=== PATIENT | female | born 1935 | race Caucasian/White ===

== ENCOUNTER 2018-03-21 16:56 | Emergency (ER) | payer OTHER ==
--- OUTSIDE RECORDS SUMMARY | 2018-03-21 16:59 | XMS REPORT ---
:1935 [facility] Organization [facility] Address [address] [place] [address] [address] [address] Care Team Providers Name Role Phone JONAH SCOTT Unavailable Unavailable Problems This patient has no known problems. Allergies, Adverse Reactions, Alerts This patient has no known allergies or adverse reactions. Medications This patient has no known medications. Results Test Description Test Time Test Comments Text Results Atomic Results Result Comments TROPONIN I 2017-01-04 09:28:00 Test Item Value Reference Range Comments TROPONIN I (BEAKER) (test pyek=810) 0.02 ng/mL 0.00-0.03 Effective 06/27/2014: Reference Range ChangeNew: 0.00-0.03 Previous 0.00- 0.15Troponin I (TnI) levels must be interpreted in the context of the presenting symptoms and the clinical findings. Elevated TnI levels indicate myocardial damage, but are not specific for ischemic heart disease. Elevated TnI levels are seen in patients with other cardiac conditions (including myocarditis and congestive heartfailure), and slight TnI elevations occur in patients with other conditions, including sepsis, renalfailure, acidosis, acute neurological disease, and persistent tachyarrhythmia.HEMOGLOBIN [id number] 07 :32:00 Test Item Value Reference Range Comments HEMOGLOBIN A1C (BEAKER) (test inxi=112) 5.1 % 4.3-6.1 FastingVITAMIN [id number] 05:27:00 Test Item Value Reference Range Comments VITAMIN B12 (BEAKER) (test gbtq=450) 374 pg/mL 213-816 TSH/FREE T4 IF [id number] 05:27:00 Test Item Value Reference Range Comments THYROID STIMULATING HORMONE (BEAKER) (test 1.01 uIU/mL 0.35-4.94 kxjq=765) CREATINE KINASE (CK), TOTAL AND [id number] 05:10:00 Test Item Value Reference Range Comments CREATINE KINASE TOTAL (BEAKER) (test fjlo=205) 80 U/L 29-200 CREATINE KINASE-MB (BEAKER) (test nbof=150) 2.0 ng/mL 0.0-6.6 CREATINE KINASE-MB INDEX (BEAKER) (test sahk=013) 2.5 % Effective 06/27/2014: CK-MB Reference Range ChangeNew: 0.0-6.6 Previous: 0.0- 4.9CK-MB Reference Range:<6.7 Normal6.7-10.0 Borderline>10.0 AbnormalFastingFastingTROPONIN [id number] 05:10:00 Test Item Value Reference Range Comments TROPONIN I (BEAKER) (test rrla=105) 0.02 ng/mL 0.00-0.03 Effective 06/27/2014: Reference Range ChangeNew: 0.00-0.03 Previous 0.00- 0.15Troponin I (TnI) levels must be interpreted in the context of the presenting symptoms and the clinical findings. Elevated TnI levels indicate myocardial damage, but are not specific for ischemic heart disease. Elevated TnI levels are seen in patients with other cardiac conditions (including myocarditis and congestive heartfailure), and slight TnI elevations occur in patients with other conditions, including sepsis, renalfailure, acidosis, acute neurological disease, and persistent tachyarrhythmia.FastingLIPID [id number] 05:03:00 Test Item Value Reference Range Comments TRIGLYCERIDES (BEAKER) (test 102 mg/dL Specimen slightly hemolyzed wrsf=951) CHOLESTEROL (BEAKER) (test 197 mg/dL Specimen slightly hemolyzed vyhm=011) HDL CHOLESTEROL (BEAKER) (test 55 mg/dL dtnp=858) LDL CHOLESTEROL CALCULATED 122 mg/dL (BEAKER) (test uksh=976) Triglyceride Reference Range: Low Risk <150 Borderline 150- 199 High Risk 200-499 Very High Risk >=500Cholesterol Reference Range: Low Risk <200 Borderline 200-239 High Risk > 240HDL Cholesterol Reference Range: Low Risk >=60 High Risk <40LDL Cholesterol Reference Range: Optimal <100 Near Optimal 100-129 Borderline 130-159 High 160-189 Very High >=190 Fasting
--- OUTSIDE RECORDS SUMMARY | 2018-03-21 16:59 | XMS REPORT ---
:1935 Author Organization [employer] Care Team Providers Name Role Phone Miriam Saini Provider Role Unavailable Allergies, Adverse Reactions, Alerts Substance Reaction Event Type N.K.D.A. Info Not Available Non Drug Allergy Problems Problem Type Condition Code Onset Dates Condition Status Problem Dementia without behavioral F03.90 Active disturbance, unspecified dementia type Problem Other chronic pain G89.29 Active Problem Pain in left knee M25.562 Active Problem Neck pain M54.2 Active Assessment Scoliosis, unspecified scoliosis M41.9 Active type, unspecified spinal region Problem Osteopenia M85.80 Active Assessment Dementia without behavioral F03.90 Active disturbance, unspecified dementia type Problem Hypertension I10 Active Problem Memory loss R41.3 Active Problem Hypercholesterolemia E78.00 Active Problem Scoliosis M41.9 Active Problem Low back pain M54.5 Active Assessment Neck pain M54.2 Active Assessment History of TIA (transient ischemic Z86.73 Active attack) Assessment Other chronic pain G89.29 Active Assessment Low back pain M54.5 Active Assessment Hypertension, unspecified type I10 Active Problem Hypertension, unspecified type I10 Active Assessment Osteopenia, unspecified location M85.80 Active Problem Hypercholesterolemia E78.00 Active Assessment Hypercholesterolemia E78.00 Active Problem Scoliosis, unspecified scoliosis M41.9 Active type, unspecified spinal region Medications Medication Code Code Instructions Start End Status Dosage System Date Date PreserVision [facility] 89578854075 - Orally Active not AREDS 2 defined Ciprofloxacin [facility] [address]-45 500 MG Orally Active 1 tablet HCl Twice a day x3 days Atorvastatin ND 62125153975 80 MG Orally December 28, Active 1 tablet Calcium Once a day 2017 Lisinopril ND 33237227997 10 MG Orally Active 1 tablet Once a day Lisinopril ND 24432536274 10 MG Orally December 28, Active 1 tablet Once a day 2017 Atorvastatin [facility] 39704501987 80 MG Orally Active 1 tablet Calcium Once a day Fish Oil [facility] 33153014486 435 MG Orally Active 1 capsule Once a day Results No Known Results Summary Purpose eClinicalWorks Submission
--- OUTSIDE RECORDS SUMMARY | 2018-03-21 16:59 | XMS REPORT ---
:1935 Author Organization [employer] Care Team Providers Name Role Phone Miriam Saini Provider Role Unavailable Allergies No Known Allergies Problems Problem Type Condition Code Onset Dates Condition Status Problem Dementia without behavioral F03.90 Active disturbance, unspecified dementia type Problem Other chronic pain G89.29 Active Problem Pain in left knee M25.562 Active Problem Neck pain M54.2 Active Problem Osteopenia M85.80 Active Problem Hypertension I10 Active Problem Memory loss R41.3 Active Problem Hypercholesterolemia E78.00 Active Problem Scoliosis M41.9 Active Problem Low back pain M54.5 Active Problem Hypertension, unspecified type I10 Active Problem Hypercholesterolemia E78.00 Active Problem Scoliosis, unspecified scoliosis M41.9 Active type, unspecified spinal region Medications No Known Medications Results No Known Results Summary Purpose eClinicalWorks Submission
--- OUTSIDE RECORDS SUMMARY | 2018-03-21 16:59 | XMS REPORT | Clinical Summary ---
:1935 Author Organization [facility] Address [address] [place] [address] Phone Care Team Providers Name Role Phone Unavailable Primary Care Provider Unavailable Allergies No Known Allergies Current Medications Prescription Sig. Disp. Refills Start Date End Date Status dimenhyDRINATE Take 50 mg by Active (DRAMAMINE) 50 MG mouth. tablet acetaminophen (TYLENOL) Take 500 mg by Active 500 MG mouth every 4 tabletIndications: (four) hours Headache Disorder as needed for Pain. cetirizine (ZYRTEC) 10 Take 10 mg by Active MG chewable tablet mouth. omega-3 fatty Take 1 tablet Active acids-vitamin E 1,000 by mouth mg Cap daily. multivitamin per tablet Take 1 tablet Active by mouth. melatonin 5 mg Tab Take 1 tablet 30 each 0 01/05/2017 Active tablet (5 mg total) by mouth nightly. aspirin 81 MG EC tablet Take 1 tablet 0 01/05/2017 01/05/2018 (81 mg total) by mouth daily. atorvastatin (LIPITOR) Take 1 tablet 90 tablet 1 01/05/2017 01/05/2018 80 MG tablet (80 mg total) by mouth nightly. lisinopril Take 1 tablet 90 tablet 1 01/06/2017 01/06/2018 (PRINIVIL,ZESTRIL) 10 (10 mg total) MG tablet by mouth daily. 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
[2018-03-21 18:54] LABS: Absolute Lymphocytes (CBC) 0.9 K/uL (0.7-4.9); Absolute Monocytes 0.4 K/uL (0.1-1.3); Absolute Neutrophil 4.2 K/uL (1.8-8.0); Basophils % 0.5 % (0-1.3); Eosinophils % 0.3 % (0-4.4); Hematocrit 37.9 % (36.0-45.0); Lymphocytes % 16.1 % (15.3-44.8); MCH 34.4 pg (27.0-35.0); MCV 99.8 fL (80-100); MPV 7.9 fL (7.6-11.3); Monocytes % 6.9 % (3.3-12.3)
[2018-03-21 18:59] LABS: Protime INR 0.93
[2018-03-21 19:04] LABS: Urine Blood NEGATIVE (NEG); Urine Glucose NEGATIVE (NEG); Urine Protein 1+ (NEG)
[2018-03-21 19:09] LABS: Urine Bacteria <20 /HPF (<20); Urine Culture Reflex Order REFLEXED; Urine RBC <5 /HPF (NONE SEEN)
[2018-03-21 19:14] LABS: Albumin 4.2 g/dL (3.4-5.0); Bilirubin Direct 0.2 mg/dL (0-0.2); Bilirubin Total 0.7 mg/dL (0.2-1.0); CKMB Creatine Kinase MB 1.4 ng/mL (0.3-3.6); Magnesium 2.4 mg/dL (1.8-2.4); Protein, Total 7.9 g/dL (6.4-8.2)
--- NOTE | 2018-03-21 19:40 | RAD REPORT ---
EXAM DESCRIPTION: RAD - Chest Single View - 03/21/2018 7:25 pm CLINICAL HISTORY: Fall, chest pain COMPARISON: December 2016 TECHNIQUE: AP portable chest image was obtained 1903 hours . FINDINGS: Lungs are clear. Heart and vasculature are normal. No measurable pleural effusion and no p neumothorax. No gross bony abnormality seen. No acute aortic findings suspected. IMPRESSION: No acute cardiopulmonary process. No significant change from comparison.
--- NOTE | 2018-03-21 19:40 | RAD REPORT ---
EXAM DESCRIPTION: RAD - Pelvis - 03/21/2018 7:25 pm CLINICAL HISTORY: Fall several days earlier, continued pain COMPARISON: None. TECHNIQUE: AP imaging of the pelvis was obtained. FINDINGS: No fracture or dislocation of either proximal femur. Mild bilateral hip joint degenerative changes are present. Sacral ala assessment is limited but no gross abnormality seen. No pelvic fract ure identifiable on these images. SI joint degenerative changes are present. Arterial calcifications are present. No suspicious soft tissue finding. IMPRESSION: Degenerative change without acute bone finding identifiable. Sacrum assessment is limite d.
--- NOTE | 2018-03-21 19:41 | RAD REPORT ---
EXAM DESCRIPTION: RAD - Shoulder Left 2 View - 03/21/2018 7:25 pm CLINICAL HISTORY: Fall, shoulder pain COMPARISON: None. TECHNIQUE: Internal and external rotation views of the left shoulder were obtained. FINDINGS: There is no fracture or dislocation. No significant degenerative change at the AC joint. T he width of the AC joint is not outside of range of normal. Acromial humeral joint space also normal range. No suspicious soft tissue calcification. No acute or suspicious findings. IMPRESSION: Negative two-view left shoulder examination for acute finding.
--- NOTE | 2018-03-21 20:49 | RAD REPORT ---
EXAM DESCRIPTION: CT - Head Brain Wo Cont - 03/21/2018 8:35 pm CLINICAL HISTORY: Headache, hypertension COMPARISON: December 2016 TECHNIQUE: Axial 5 mm thick images of the head were obtained without IV contrast. All CT scans are performed using dose optimization technique as appropriate and may include automated exposure control or mA/KV adjustment according to patient size. FINDINGS: No intracranial hemorrhage, mass, edema or shift of mid-line structures. No acute infarcti on changes seen. Prominent atrophy and chronic ischemic changes are present involving each cerebral h emisphere extending into the basal ganglia, thalamus and brainstem tissue. Ventricles are in proporti on to volume loss. Patient has very dense arterial calcifications. Mastoid air cells and visualized portions of the paranasal sinuses are clear. No acute bony findings. IMPRESSION: Prominent atrophy and chronic ischemic change as detailed. No acute intracranial finding . No significant change from 2017 comparison. Chronic ischemic changes can mask nonhemorrhagic acute infarction. MR brain followup can be obtained if there is ongoing concern for acute ischemia.
[2018-03-21] MEDS ORDERED: AMLODIPINE 5 MG TAB ONE (21:07)
[2018-03-21] MEDS ORDERED: cloNIDine HCl 0.1 MG TAB ONE (21:07)
--- NOTE | 2018-03-21 21:41 | ER ---
Nurse's Notes [facility] Name: Liliane Mejia Age: 82 yrs Sex: Female : 1935 Arrival Date: 03/21/2018 Time: 16:58 Bed 19 Private MD: Miriam Saini Diagnosis: Pain in left shoulder;Hypertensive heart disease Presentation: 03/21 17:25 Presenting complaint: Patient states: "I just don't feel well" Patient's daughter aj1 states that she fell a couple week ago. She had X-Rays done last week, but they didn't hear back about them. Patient reports malaise, back pain, left shoulder pain. She's been feeling this way for the past 3 weeks, but its been getting worse for the past 3 days. Transition of care: patient was not received from another setting of care. Onset of symptoms was 2017. Risk Assessment: Do you want to hurt yourself or someone else? Patient reports no desire to harm self or others. Initial Sepsis Screen: Does the patient meet any 2 criteria? No. Patient's initial sepsis screen is negative. Does the patient have a suspected source of infection? No. Patient's initial sepsis screen is negative. Care prior to arrival: None. 17:25 Method [facility] Ar[facility]: [facility] 17:25 Acuity: ROSA 3 aj1 Triage Assessment: 17:30 General: Appears in no apparent distress. uncomfortable, Behavior is calm, cooperative, aj1 appropriate for age. Pain: Complains of pain in anterior aspect of left shoulder and posterior aspect of left shoulder Pain currently is 8 out of 10 on a pain scale. Neuro: Level of Consciousness is awake, alert, obeys commands. Cardiovascular: Patient's skin is warm and dry. Respiratory: Airway is patent Respiratory effort is even, unlabored, Respiratory pattern is regular, symmetrical. Historical: - Allergies: 17:30 Codeine; aj1 - Home Meds: 17:30 memantine oral oral [Active]; aspirin 81 mg Oral chew 1 tab once daily [Active]; B/P aj1 Pill [Active]; calcium [Active]; Fish Oil Oral [Active]; acetaminophen 500 mg Oral tab [Active]; dimenhydrinate 50 mg Oral tab [Active]; Multiple Vitamins Oral tab [Active]; Tylenol PM Extra Strength 25-500 mg Oral tab [Active]; Zyrtec 10 mg Oral tab 1 tab once daily [Active]; - PMHx: 17:30 Hypertension; macular degeneration; scoliosis; shingles; Dementia; aj1 - PSHx: 17:30 Hysterectomy; cataract surgery; aj1 - Immunization history:: Flu vaccine is up to date. - Social history:: Smoking status: Patient/guardian denies using tobacco. - Ebola Screening: : No symptoms or risks identified at this time. Screenin:52 Abuse screen: Denies threats or abuse. Nutritional screening: No deficits noted. em Tuberculosis screening: No symptoms or risk factors identified. Fall Risk Assessment: 18:15 General: Appears in no apparent distress. comfortable, Behavior is calm, cooperative. em Pain: Complains of pain in left hip and left arm and posterior aspect of left shoulder and anterior aspect of left shoulder Pain currently is 8 out of 10 on a pain scale. Neuro: Level of Consciousness is awake, alert, obeys commands, Oriented to person, place, time, situation. Cardiovascular: Denies chest pain, shortness of breath, Capillary refill < 3 seconds Patient's skin is warm and dry. Respiratory: Airway is patent Respiratory effort is even, unlabored, Respiratory pattern is regular, symmetrical. GI: Abdomen is flat. : Denies burning with urination, pain. EENT: No signs and/or symptoms were reported regarding the EENT system. Derm: Skin is intact, Skin is pink, warm \\T\\ dry. Musculoskeletal: Range of motion: intact in all extremities. 18:20 Reassessment: I agree with previous assessment. 19:05 Reassessment: Report received from CLIFF Ding. bs1 19:05 General: Appears in no apparent distress. comfortable, slender, Behavior is calm, bs1 cooperative, appropriate for age. Pain: Complains of pain in left hip and left arm and posterior aspect of left shoulder and anterior aspect of left shoulder. Neuro: Level of Consciousness is awake, alert, obeys commands, Oriented to person, place, time, situation, Appropriate for age. Cardiovascular: Denies chest pain, shortness of breath, Heart tones S1 S2 present Capillary refill < 3 seconds Patient's skin is warm and dry. Respiratory: Airway is patent Trachea midline Respiratory effort is even, unlabored, Respiratory pattern is regular, symmetrical, Breath sounds are clear bilaterally. GI: No signs and/or symptoms were reported involving the gastrointestinal system. : No signs and/or symptoms were reported regarding the genitourinary system. EENT: No signs and/or symptoms were reported regarding the EENT system. Derm: Skin is intact, Skin is pink, warm \\T\\ dry. Musculoskeletal: Range of motion: intact in all extremities. 20:45 Reassessment: Patient appears in no apparent distress at this time. Patient and/or bs1 family updated on plan of care and expected duration. Pain level reassessed. Patient is alert, oriented x 3, equal unlabored respirations, skin warm/dry/pink. updated on POC Patient denies pain at this time. 21:50 Reassessment: Patient appears in no apparent distress at this time. Patient and/or bs1 family updated on plan of care and expected duration. Pain level reassessed. Patient is alert, oriented x 3, equal unlabored respirations, skin warm/dry/pink. Patient/family state understanding of POC. Vital Signs: 17:30 BP 181 / 91; Pulse 74; Resp 18; Temp 98.3; Pulse Ox 96% on R/A; Weight 58.06 kg (R); aj1 Height 5 ft. 7 in. (170.18 cm) (R); Pain 8/10; 18:30 BP 199 / 89 Supine; Pulse 78; em 18:30 BP 214 / 94 Sitting; Pulse 74; em 18:30 BP 207 / 98 Standing; Pulse 78; em 19:30 BP 182 / 87; Pulse 68; Resp 17 S; Pulse Ox 98% on R/A; bs1 20:30 BP 210 / 90; Pulse 66; Resp 18 S; Pulse Ox 97% on R/A; bs1 21:00 BP 179 / 84; Pulse 63; Resp 18; Pulse Ox 97% on R/A; bs1 21:57 BP 174 / 84; Pulse 64; Resp 16 S; Temp 98; Pulse Ox 97% on R/A; Pain 2/10; bs1 17:30 Body Mass Index 20.05 (58.06 kg, 170.18 cm) aj1 ED Course: 16:58 Patient arrived in ED. sb2 16:58 Miriam Saini MD is Private Physician. sb2 17:28 Triage completed. aj1 17:30 Arm band placed on Patient placed in an exam room. aj1 17:38 Leonid Garcia PA is PHCP. cp 17:38 Angel Gurrola MD is Attending Physician. cp 18:[address] LVN is Primary Nurse. em 18:40 No provider procedures requiring assistance completed. Initial lab(s) drawn, by me, em sent to lab. Inserted saline lock: 20 gauge in left antecubital area, using aseptic technique. Blood collected. 18:52 Patient has correct armband on for positive identification. em 19:25 XRAY Chest (1 view) In Process Unspecified. EDMS 19:25 XRAY Shoulder LEFT 2 view In Process Unspecified. EDMS 19:25 XRAY Pelvis In Process Unspecified. EDMS 20:34 CT completed. Patient moved to CT via wheelchair. Patient moved back from CT. kw1 20:35 CT Head Brain wo Cont In Process Unspecified. EDMS 21:40 Miriam Saini MD is Referral Physician. cp 22:00 IV discontinued, bleeding controlled, No redness/swelling at site. Pressure dressing bs1 applied. Administered Medications: 21:06 Drug: Norvasc 10 mg Route: PO; bs1 22:01 Follow up: Response: No adverse reaction bs1 21:07 Drug: cloNIDine 0.2 mg Route: PO; bs1 22:01 Follow up: Response: No adverse reaction bs1 Outcome: 21:41 Discharge ordered by MD. cp 21:58 Discharged to home via wheelchair, with family. bs1 21:58 Condition: stable 21:58 Discharge instructions given to patient, family, Instructed on discharge instructions, follow up and referral plans. medication usage, Demonstrated understanding of instructions, follow-up care, medications, Prescriptions given X 1. 22:02 Patient left the ED. bs1 Signatures: Dispatcher [employer] EDMS Allie Peoples RN RN aj1 [address] LVN REFUSE COLLECTOR em Leonid Garcia PA PA cp Ene Frank RN RN Susan Nguyen kw1 Tanika Bashir RN RN bs1 Kaylin Anaya sb2
--- NOTE | 2018-03-21 21:42 | EDPHYS ---
Physician Documentation [facility] Name: Liliane Mejia Age: 82 yrs Sex: Female : 1935 Arrival Date: 03/21/2018 Time: 16:58 Bed 19 Private MD: Miriam Saini ED Physician Angel Gurrola HPI: 03/21 18:00 This 82 yrs old Female presents to ER via Ambulatory with complaints of cp Doesn't Feel Right. 18:00 Onset: The symptoms/episode began/occurred 3 week(s) ago, and became worse 3 day(s) ago.cp 18:00 Associated signs and symptoms: Pertinent positives: left shoulder and pelvic pain, cp Pertinent negatives: abdominal pain, chest pain, diarrhea, dysuria, fever, headache, vomiting. Patient reports fall 2-3 weeks ago. Historical: - Allergies: 17:30 Codeine; aj1 - Home Meds: 17:30 memantine oral oral [Active]; aspirin 81 mg Oral chew 1 tab once daily [Active]; B/P aj1 Pill [Active]; calcium [Active]; Fish Oil Oral [Active]; acetaminophen 500 mg Oral tab [Active]; dimenhydrinate 50 mg Oral tab [Active]; Multiple Vitamins Oral tab [Active]; Tylenol PM Extra Strength 25-500 mg Oral tab [Active]; Zyrtec 10 mg Oral tab 1 tab once daily [Active]; - PMHx: 17:30 Hypertension; macular degeneration; scoliosis; shingles; Dementia; aj1 - PSHx: 17:30 Hysterectomy; cataract surgery; aj1 - Immunization history:: Flu vaccine is up to date. - Social history:: Smoking status: Patient/guardian denies using tobacco. - Ebola Screening: : No symptoms or risks identified at this time. ROS: 18:05 Constitutional: Positive for fatigue, malaise, Negative for body aches, chills, poor PO cp intake, weight loss. 18:05 Eyes: Negative for injury, pain, redness, and discharge. cp 18:05 ENT: Negative for drainage from ear(s), ear pain, sore throat, difficulty swallowing, difficulty handling secretions. 18:05 Cardiovascular: Negative for chest pain, edema, palpitations. 18:05 Respiratory: Negative for cough, shortness of breath, wheezing. 18:05 Abdomen/GI: Negative for abdominal pain, nausea, vomiting, and diarrhea, anorexia, black/tarry stool, rectal bleeding. 18:05 Back: Negative for pain at rest, pain with movement, radiated pain. 18:05 MS/extremity: Positive for pain, of the pelvis and left shoulder, Negative for decreased range of motion, deformity, paresthesias. 18:05 Skin: Negative for cellulitis, diaphoresis, rash. 18:05 Neuro: Negative for altered mental status, numbness, syncope, near syncope, weakness. 18:05 All other systems are negative. Exam: 18:10 Constitutional: The patient appears in no acute distress, alert, awake, cp non-diaphoretic, non-toxic, well developed, well nourished. 18:10 Head/Face: Normocephalic, atraumatic. cp 18:10 Eyes: Periorbital structures: appear normal, Pupils: equal, round, and reactive to cp light and accomodation, Extraocular movements: intact throughout, Conjunctiva: normal, no exudate, no injection, Sclera: no appreciated abnormality, Lids and lashes: appear normal, bilaterally. 18:10 ENT: External ear(s): are unremarkable, Ear canal(s): are normal, clear, TM's: bulging, cp is not appreciated, bilaterally, dullness, bilaterally, erythema, is not appreciated, bilaterally, Nose: is normal, Mouth: Lips: moist, Oral mucosa: moist, Posterior pharynx: is normal, airway is patent, no erythema, no exudate, Voice: is normal. 18:10 Neck: ROM/movement: is normal, is supple, without pain, no range of motions limitations, no nuchal rigidity. 18:10 Chest/axilla: Inspection: normal, Palpation: is normal, no crepitus, no tenderness. 18:10 Cardiovascular: Rate: normal, Rhythm: regular, Pulses: Pulses are 2+ in right radial artery and left radial artery. Edema: is not appreciated, JVD: is not appreciated. 18:10 Respiratory: the patient does not display signs of respiratory distress, Respirations: normal, no use of accessory muscles, no retractions, no splinting, no tachypnea, labored breathing, is not present, Breath sounds: are clear throughout, no decreased breath sounds, no stridor, no wheezing. 18:10 Abdomen/GI: Inspection: abdomen appears normal, Bowel sounds: active, all quadrants, Palpation: abdomen is soft and non-tender, in all quadrants, rebound tenderness, is not appreciated, voluntary guarding, is not appreciated, involuntary guarding, is not appreciated. 18:10 Back: pain, is absent, ROM is normal. 18:10 Musculoskeletal/extremity: Exam is negative for bony tenderness, calf tenderness, decreased range of motion, deformity, injury. 18:10 Skin: cellulitis, is not appreciated, no rash present. 18:10 Neuro: Orientation: to person, place \T\ time. Mentation: lucid, able to follow commands, Cerebellar function: is grossly normal, Motor: moves all fours, strength is normal, Sensation: is normal, Gait: is steady. 18:52 ECG was reviewed by the Attending Physician. Vital Signs: 17:30 BP 181 / 91; Pulse 74; Resp 18; Temp 98.3; Pulse Ox 96% on R/A; Weight 58.06 kg (R); aj1 Height 5 ft. 7 in. (170.18 cm) (R); Pain 8/10; 18:30 BP 199 / 89 Supine; Pulse 78; em 18:30 BP 214 / 94 Sitting; Pulse 74; em 18:30 BP 207 / 98 Standing; Pulse 78; em 19:30 BP 182 / 87; Pulse 68; Resp 17 S; Pulse Ox 98% on R/A; bs1 20:30 BP 210 / 90; Pulse 66; Resp 18 S; Pulse Ox 97% on R/A; bs1 21:00 BP 179 / 84; Pulse 63; Resp 18; Pulse Ox 97% on R/A; bs1 21:57 BP 174 / 84; Pulse 64; Resp 16 S; Temp 98; Pulse Ox 97% on R/A; Pain 2/10; bs1 17:30 Body Mass Index 20.05 (58.06 kg, 170.18 cm) aj1 MDM: 17:38 Patient medically screened. cp 18:00 Differential diagnosis: pneumonia UTI, CVA, cardiac arrythmia, electrolyte abnormality. cp 21:40 Data reviewed: vital signs, nurses notes, lab test result(s), EKG, radiologic studies, cp CT scan, plain films, and as a result, I will discharge patient. 21:40 Counseling: I had a detailed discussion with the patient and/or guardian regarding: the cp historical points, exam findings, and any diagnostic results supporting the discharge/admit diagnosis, lab results, radiology results, the need for outpatient follow up, a family practitioner, to return to the emergency department if symptoms worsen or persist or if there are any questions or concerns that arise at home. 21:40 Counseling: I had a detailed discussion with the patient and/or guardian regarding: the cp presence of at least one elevated blood pressure reading (>120/80) during this emergency department visit. Response to treatment: the patient's symptoms have mildly improved after treatment, and as a result, I will discharge patient. 03/21 17:55 Order name: Basic Metabolic Panel; Complete Time: 19:53 cp / 19:53 Interpretation: Normal except: NA 133; GLUC 113; GFR 68. cp 03/21 17:55 Order name: CBC with Diff; Complete Time: 19:12 cp 03/21 19:12 Interpretation: Normal except: RBC 3.80; MCV 99.8; MARYJO% 76.2. 03/21 17:55 Order name: Ckmb; Complete Time: 19:53 cp 03/21 17:55 Order name: CPK; Complete Time: 19:53 cp 03/21 17:55 Order name: LFT's; Complete Time: 19:53 cp / 19:54 Interpretation: Normal except: GLOB 3.7. cp / 17:55 Order name: Magnesium; Complete Time: 19:53 cp 03/21 17:55 Order name: NT PRO-BNP; Complete Time: 19:53 cp / 19:54 Interpretation: Abnormal: NT PRO-BNP 1574. cp / 17:55 Order name: PT-INR; Complete Time: 19:12 cp / 17:55 Order name: Ptt, Activated; Complete Time: 19:12 cp 03/21 17:55 Order name: Troponin (emerg Dept Use Only); Complete Time: 19:53 cp / 19:55 Interpretation: Within normal limits: TROPED < 0.02. cp / 17:55 Order name: XRAY Chest (1 view); Complete Time: 19:53 cp 03/21 19:54 Interpretation: Report review. 03/21 18:47 Order name: Urine Dipstick--Ancillary (enter results); Complete Time: 19:12 eb /12 19:13 Interpretation: Normal except: UPROT 1+; UESTR 1+. cp 08/12 18:48 Order name: Urine Microscopic Only; Complete Time: 19:12 eb 08/12 19:13 Interpretation: Normal except: UWBC 10-20. cp 08/12 19:11 Order name: Urine Culture EDMN 03/21 17:55 Order name: Orthostatic Blood Pressure; Complete Time: 18:46 cp / 17:55 Order name: EKG; Complete Time: 17:55 cp 08 17:55 Order name: EKG - Nurse/Tech; Complete Time: 18:47 cp 08/12 17:55 Order name: Cardiac monitoring; Complete Time: 18:46 cp 08/ 17:55 Order name: IV Saline Lock; Complete Time: 18:46 cp 08/12 17:55 Order name: Labs collected and sent; Complete Time: 18:47 cp 03/21 17:55 Order name: O2 Per Protocol; Complete Time: 18:47 cp 03/21 17:55 Order name: O2 Sat Monitoring; Complete Time: 18:47 cp 12 17:55 Order name: Urine Dipstick-Ancillary (obtain specimen); Complete Time: 18:47 cp /12 17:55 Order name: XRAY Shoulder LEFT 2 view; Complete Time: 19:53 cp /12 17:55 Order name: XRAY Pelvis; Complete Time: 19:53 cp 08/12 18:52 Order name: CT Head Brain wo Cont; Complete Time: 20:50 cp EC:52 Rate is 69 beats/min. Rhythm is regular. MO interval is normal. QRS interval is normal. cp QT interval is normal. Interpreted by me. Reviewed by me. Administered Medications: 21:06 Drug: Norvasc 10 mg Route: PO; bs1 22:01 Follow up: Response: No adverse reaction bs1 21:07 Drug: cloNIDine 0.2 mg Route: PO; bs1 22:01 Follow up: Response: No adverse reaction bs1 Disposition: 03/21/18 21:41 Discharged to Home. Impression: Pain in left shoulder, Hypertensive heart disease. - Condition is Stable. - Discharge Instructions: Hypertension, Shoulder Pain, How to Take Your Blood Pressure, [id number]-[id number], Aspirin and Your Heart, Managing Your Hypertension. - Prescriptions for Tramadol 50 mg Oral Tablet - take 1 tablet by ORAL route every 8 hours as needed; 15 tablet. - Medication Reconciliation Form, Thank You Letter, Antibiotic Education, Prescription Opioid Use form. - Follow up: Miriam Saini MD; When: 2 - 3 days; Reason: Recheck today's complaints. - Problem is new. - Symptoms have improved. Addendum: 03/30/2018 08:27 Co-signature as Attending Physician, Angel Gurrola MD. r n Signatures: Dispatcher [employer] EDMS Allie Peoples RN RN aj1 Angel Gurrola MD MD rn Leonid Garcia PA PA cp Tanika Bashir, RN RN bs1 Corrections: (The following items were deleted from the chart) 03/21 22:02 21:41 03/21/2018 21:41 Discharged to Home. Impression: Pain in left shoulder; bs1 Hypertensive heart disease. Condition is Stable. Forms are Medication Reconciliation Form, Thank You Letter, Antibiotic Education, Prescription Opioid Use. Follow up: Miriam Saini; When: 2 - 3 days; Reason: Recheck today's complaints. Problem is new. Symptoms have improved. cp 03/22 21:13 03/21 18:05 Constitutional: Negative for body aches, chills, fever, poor PO intake, cp cp 03/22 21:13 03/21 18:05 Eyes: Negative for injury, pain, redness, and discharge, cp cp
--- NOTE | 2018-03-22 05:41 | EKG ---
Test Date: 2018-03-21 Test Time: 18:46:22 Adaptive Physical Educator: ARACELY MEASUREMENT RESULTS: Intervals: Rate: 69 CA: 194 QRSD: 88 QT: 414 QTc: 443 [place]: P: 73 CA: 194 QRS: -31 T: 76 INTERPRETIVE STATEMENTS: Sinus rhythm with premature atrial complexes Left axis deviation Anteroseptal infarct, age undetermined Abnormal ECG Compared to ECG 01/03/2017 21:37:41 Atrial premature complex(es) now present Myocardial infarct finding still present Electronically Signed On 03-22-18 05:40:36 CDT by Alvarez Haq
== END 2018-03-21 22:02 | disposition home or self-care (01) ==
LOC: ER 16:56
DX: I11.9 Hypertensive heart disease without heart failure (principal); I10 Essential (primary) hypertension; F03.90 Unspecified dementia, unspecified severity, without behavioral disturbance, psychotic disturbance, mood disturbance, and anxiety; Z79.82 Long term (current) use of aspirin
CPT/HCPCS: 36415; 70450; 71045; 72170; 80048; 80076; 81003; 81015; 82550; 82553; 83735; 83880; 84484; 85025; 85610; 85730; 87086; 87088; 93005; 99284

== ENCOUNTER 2018-05-26 09:05 | Emergency (ER) | payer OTHER ==
--- OUTSIDE RECORDS SUMMARY | 2018-05-26 09:08 | XMS REPORT | Clinical Summary ---
:1935 Author Organization [facility] Address [address] [place] [address] Phone Care Team Providers Name Role Phone [...] Not on file Results Not on fileafter 05/25/2017
--- OUTSIDE RECORDS SUMMARY | 2018-05-26 09:08 | XMS REPORT ---
:1935 Author Organization [employer] Care Team Providers Name Role Phone Miriam Saini Provider Role Unavailable Allergies No Known Allergies Problems Problem Type Condition Code Onset Dates Condition Status Problem Dementia without behavioral F03.90 Active disturbance, unspecified dementia type Problem Hypercholesterolemia E78.00 Active Problem Hypertension, unspecified type I10 Active Problem Nausea R11.0 Active Problem Acute pain of left shoulder M25.512 Active Problem Shortness of breath R06.02 Active Problem Elevated brain natriuretic peptide R79.89 Active (BNP) level Problem Status post fall Z91.81 Active Problem Decreased appetite R63.0 Active Problem Fluctuating blood pressure I99.8 Active Problem Scoliosis M41.9 Active Problem Osteopenia M85.80 Active Problem Hyperglycemia R73.9 Active Problem Low back pain M54.5 Active Problem Pain in left knee M25.562 Active Problem Other chronic pain G89.29 Active Problem Neck pain M54.2 Active Problem Hypercholesterolemia E78.00 Active Problem Memory loss R41.3 Active Problem Scoliosis, unspecified scoliosis M41.9 Active type, unspecified spinal region Medications No Known Medications Results No Known Results Summary Purpose eClinicalWorks Submission
--- OUTSIDE RECORDS SUMMARY | 2018-05-26 09:08 | XMS REPORT ---
:1935 Author Organization [facility] Address [address] [place] [address] [address] Care Team Providers Name Role Phone JONAH [...] Reference Range Comments TROPONIN I (BEAKER) (test fpnk=210) 0.02 ng/mL 0.00-0.03 Effective 06/27/2014: Reference Range [...] acidosis, acute neurological disease, and persistent tachyarrhythmia.HEMOGLOBIN [id number] 07 :32:00 Test Item Value Reference Range Comments HEMOGLOBIN A1C (BEAKER) (test fhuw=253) 5.1 % 4.3-6.1 FastingVITAMIN [id number] 05:27:00 Test Item Value Reference Range Comments VITAMIN B12 (BEAKER) (test pmwb=603) 374 pg/mL 213-816 TSH/FREE T4 IF [id number] 05:27:00 Test Item Value Reference Range Comments THYROID STIMULATING HORMONE (BEAKER) (test 1.01 uIU/mL 0.35-4.94 dhyi=862) CREATINE KINASE (CK), TOTAL AND [id number] 05:10:00 Test Item Value Reference Range Comments CREATINE KINASE TOTAL (BEAKER) (test xytp=652) 80 U/L 29-200 CREATINE KINASE-MB (BEAKER) (test jrkk=049) 2.0 ng/mL 0.0-6.6 CREATINE KINASE-MB INDEX (BEAKER) (test ziwa=408) 2.5 % Effective 06/27/2014: CK-MB Reference Range ChangeNew: 0.0-6.6 Previous: 0.0- 4.9CK-MB Reference Range:<6.7 Normal6.7-10.0 Borderline>10.0 AbnormalFastingFastingTROPONIN [id number] 05:10:00 Test Item Value Reference Range Comments TROPONIN I (BEAKER) (test pvna=698) 0.02 ng/mL 0.00-0.03 Effective 06/27/2014: Reference Range [...] acidosis, acute neurological disease, and persistent tachyarrhythmia.FastingLIPID [id number] 05:03:00 Test Item Value Reference Range Comments TRIGLYCERIDES (BEAKER) (test 102 mg/dL Specimen slightly hemolyzed ptbi=772) CHOLESTEROL (BEAKER) (test 197 mg/dL Specimen slightly hemolyzed mwvt=798) HDL CHOLESTEROL (BEAKER) (test 55 mg/dL gjee=995) LDL CHOLESTEROL CALCULATED 122 mg/dL (BEAKER) (test dkha=449) Triglyceride Reference Range: Low Risk <150 Borderline 150- 199 High Risk 200-499 Very High Risk >=500Cholesterol Reference Range: Low Risk <200 Borderline 200-239 High Risk > 240HDL Cholesterol Reference Range: Low Risk >=60 High Risk <40LDL Cholesterol Reference Range: Optimal <100 Near Optimal 100-129 Borderline 130-159 High 160-189 Very High >=190 Fasting
--- OUTSIDE RECORDS SUMMARY | 2018-05-26 09:08 | XMS REPORT ---
:1935 Author Organization [employer]Works Care Team Providers Name Role Phone Miriam Saini Provider Role Unavailable Allergies, Adverse Reactions, Alerts Substance Reaction Event Type N.K.D.A. Info Not Available Non Drug Allergy Problems Problem Type Condition Code Onset Dates Condition Status Assessment Hypercholesterolemia E78.00 Active Assessment Dementia without behavioral F03.90 Active disturbance, unspecified dementia type Assessment Nausea R11.0 Active Assessment Decreased appetite R63.0 Active Assessment Elevated brain natriuretic peptide R79.89 Active (BNP) level Assessment Shortness of breath R06.02 Active Assessment Follow-up exam Z09 Active Problem Hypercholesterolemia E78.00 Active Assessment Status post fall Z91.81 Active Problem Scoliosis, unspecified scoliosis M41.9 Active type, unspecified spinal region Assessment Acute pain of left shoulder M25.512 Active Problem Dementia without behavioral F03.90 Active disturbance, unspecified dementia type Problem Hypercholesterolemia E78.00 Active Problem Hypertension, unspecified type I10 Active Problem Nausea R11.0 Active Problem Acute pain of left shoulder M25.512 Active Assessment Fluctuating blood pressure I99.8 Active Problem Shortness of breath R06.02 Active Assessment Hypertension, unspecified type I10 Active Problem Elevated brain natriuretic peptide R79.89 [...] Active Problem Neck pain M54.2 Active Problem Memory loss R41.3 Active Medications Medication Code Code Instructions Start End Status Dosage System Date Date Lisinopril [facility] 96381660335 10 MG Orally December 28, Active 1 tablet Once daily; 2018 take 2nd tablet as needed if BP is > iq=012/90; max of 20 mg/day Atorvastatin [facility] 23066274945 80 MG Orally December 28, Active 1 tablet Calcium Once a day 2018 in evening Fish Oil [facility] 17011956039 435 MG Orally Active 1 capsule Once a day PreserVision [facility] 28354564249 - Orally Active not AREDS 2 defined Ciprofloxacin HCl [facility] 75048083691 500 MG Orally Active 1 tablet Twice a day x3 days Results No Known Results Summary Purpose eClinicalWorks Submission
--- OUTSIDE RECORDS SUMMARY | 2018-05-26 09:08 | XMS REPORT ---
:1935 Author Organization [employer] Care Team Providers Name Role Phone Miraim Saini Provider Role Unavailable Allergies No Known [...]
--- OUTSIDE RECORDS SUMMARY | 2018-05-26 09:08 | XMS REPORT ---
[...] End Status Dosage System Date Date PreserVision [facility] 47195156338 - Orally Active not AREDS 2 defined [address]iprofl[address] [facility] [address]-88 500 MG Orally Active 1 tablet HCl Twice a day x3 days Atorvastatin ND 17072774003 80 MG Orally December 28, Active 1 tablet Calcium Once a day 2017 Lisinopril ND 68011696733 10 MG Orally Active 1 tablet Once a day Lisinopril ND 73558850316 10 MG Orally December 28, Active 1 tablet Once a day [address] [facility] 58653402709 80 MG Orally Active 1 tablet Calcium Once a day Fish Oil [facility] 79010085790 435 MG Orally Active 1 capsule Once a day Results No Known Results Summary Purpose eClinicalWorks Submission
--- OUTSIDE RECORDS SUMMARY | 2018-05-26 09:08 | XMS REPORT ---
[...] type, unspecified spinal region Medications Medication Code System Code Instructions Start End Date Status Dosage Date Meloxicam [facility] 67231384526 7.5 MG Orally Mar 30, Apr 29, Active 1 tablet Once daily (take 2017 2017 as needed with food) for pain Results No Known Results Summary Purpose eClinicalWorks Submission
--- NOTE | 2018-05-26 10:22 | RAD REPORT ---
EXAM DESCRIPTION: RAD - Thoracic Spine Ap/Lat - 05/26/2018 10:11 am CLINICAL HISTORY: fall, contusion;Pain Radiculopathy COMPARISON: Thoracic Spine Ap/Lat dated 04/11/2016 FINDINGS: Generalized osteopenia with a diffuse pattern of disc thinning present. Mild wedging of se veral lower thoracic vertebral bodies are noted. Prominent scoliosis of the lumbar spine suspected wi th concavity to the left, partially imaged. IMPRESSION: Mild central wedging of several lower thoracic vertebral bodies noted, age undetermined. If back pain persists or progresses, thoracic spine MR imaging may be of value.
--- NOTE | 2018-05-26 10:28 | ER ---
Nurse's Notes [facility] Name: Liliane Mejia Age: 82 yrs Sex: Female : 1935 Arrival Date: 05/26/2018 Time: 09:08 Bed 13 Private MD: Miriam Saini Diagnosis: Abrasion of forearm;Abrasion of right upper arm;Contusion of left back wall of thorax Presentation: 05/26 09:42 Presenting complaint: Child states: fell in bathroom, between sink and toilet, has iw bruising and skin tear to right arm, also has pain to left shoulder and back. Transition of care: patient was not received from another setting of care. Onset of symptoms was May 26, 2018. Risk Assessment: Do you want to hurt yourself or someone else? Patient reports no desire to harm self or others. Initial Sepsis Screen: Does the patient meet any 2 criteria? No. Patient's initial sepsis screen is negative. Does the patient have a suspected source of infection? No. Patient's initial sepsis screen is negative. Care prior to arrival: None. 09:42 Method Of Arrival: Ambulatory iw 09:42 Acuity: ROSA 4 iw Historical: - Allergies: 09:44 Codeine; iw - Home Meds: 09:44 memantine 5 mg oral tab 2 times per day [Active]; Aricept 5 mg Oral tab 1 tab once iw daily [Active]; lisinopril 10 mg Oral tab 1 tab once daily [Active]; - PMHx: 09:44 Dementia; Hypertension; macular degeneration; scoliosis; shingles; iw - PSHx: 09:44 Hysterectomy; cataract surgery; iw - Immunization history:: Adult Immunizations up to date, Last tetanus immunization: up to date. - Ebola Screening: : Patient negative for fever greater than or equal to 101.5 degrees Fahrenheit, and additional compatible Ebola Virus Disease symptoms Patient denies exposure to infectious person Patient denies travel to an Ebola-affected area in the 21 days before illness onset No symptoms or risks identified at this time. - Family history:: not pertinent. - Social history:: Smoking status: Patient/guardian denies using tobacco. - Hospitalizations: : No recent hospitalization is reported. Screenin:00 Abuse screen: Denies threats or abuse. Denies injuries from another. Nutritional sg screening: No deficits noted. Tuberculosis screening: No symptoms or risk factors identified. Never had TB. Fall Risk None identified. Assessment: 09:55 General: Appears in no apparent distress. comfortable, slender, well groomed, well sg developed, well nourished, Behavior is calm, cooperative, appropriate for age. Neuro: Level of Consciousness is awake, alert, obeys commands, Oriented to person, place, time, Speech is normal, Facial symmetry appears normal. Cardiovascular: Capillary refill is brisk in bilateral fingers Patient's skin is warm and dry. Chest pain is denied. Respiratory: Respiratory effort is even, unlabored, Respiratory pattern is regular, symmetrical. GI: Abdomen is flat, non-distended. : No signs and/or symptoms were reported regarding the genitourinary system. EENT: No signs and/or symptoms were reported regarding the EENT system. Derm: Skin is pink, warm \T\ dry. Bruising that is dark purple, brown, on right bicep and right elbow. Derm: Musculoskeletal: Circulation, motion, and sensation intact. Range of motion: intact in all extremities, Swelling absent. Injury Description: skin tear noted to right bicep and and right elbow. Vital Signs: 09:50 BP 115 / 70; Pulse 77; Resp 16; Pulse Ox 100% on R/A; Pain 3/10; sg 09:55 Weight 59.87 kg (M); Height 5 ft. 4 in. (162.56 cm) (R); sg 10:50 BP 112 / 70; Pulse 77; Resp 16 S; Pulse Ox 100% on R/A; Pain 2/10; sg 09:55 Body Mass Index 22.66 (59.87 kg, 162.56 cm) ED Course: 09:08 Patient arrived in ED. mr 09:08 Miriam Saini MD is Private Physician. mr 09:34 Angel Gurrola MD is Attending Physician. rn 09:43 Triage completed. iw 09:48 Ajit Jacome, RN is Primary Nurse. sg 09:48 Arm band placed on. Bandage applied. sg 09:50 Patient has correct armband on for positive identification. Bed in low position. Call sg light in reach. Side rails up X2. demand manager on. Pulse ox on. NIBP on. 09:53 Patient moved to radiology via wheelchair. jb2 09:55 No provider procedures requiring assistance completed. Patient did not have IV access sg during this emergency room visit. 10:10 X-ray completed. Patient tolerated procedure well. Patient moved back from radiology. jb2 10:11 XRAY Thoracic Spine (Ap/lat) In Process Unspecified. EDMS 10:27 Miriam Saini MD is Referral Physician. rn Administered Medications: No medications were administered Outcome: 10:27 Discharge ordered by MD. rn 10:50 Discharged to home ambulatory, with family. sg 10:50 Condition: good 10:50 Discharge instructions given to patient, Instructed on discharge instructions, follow up and referral plans. safety practices, wound care, Demonstrated understanding of instructions, follow-up care, wound care. 10:53 Patient left the ED. sg Signatures: Dispatcher [employer] EDMO Ajit Jacome RN RN sg Rivera, Mary mr VanAngel jb2 Jordyn Jha RN RN iw Angel Gurrola MD MD rn
--- NOTE | 2018-05-26 10:28 | EDPHYS ---
Physician Documentation [facility] Name: Liliane Mejia Age: 82 yrs Sex: Female : 1935 Arrival Date: 05/26/2018 Time: 09:08 Bed 13 Private MD: Miriam Saini ED Physician Angel Gurrola HPI: 05/26 10:16 This 82 yrs old Female presents to ER via Ambulatory with complaints of Fall rn Injury, Skin Tear(s). 10:16 Details of fall: The patient fell from an upright position. Onset: The symptoms/episode rn began/occurred just prior to arrival. Associated injuries: The patient sustained right arm, left back. Severity of symptoms: At their worst the symptoms were mild, in the emergency department the symptoms are unchanged. The patient has experienced similar episodes in the past. Reports fall from standing in bathroom, thinks hit back on sink, reports has skin tear to right arm, doesn't feel broken, complains most of left posterior thorax pain. No sob. Not on blood thinners. No head injury or LOC. . Historical: - Allergies: 09:44 Codeine; iw - Home Meds: :44 memantine 5 mg oral tab 2 times per day [Active]; Aricept 5 mg Oral tab 1 tab once iw daily [Active]; lisinopril 10 mg Oral tab 1 tab once daily [Active]; - PMHx: 09:44 Dementia; Hypertension; macular degeneration; scoliosis; shingles; iw - PSHx: 09:44 Hysterectomy; cataract surgery; iw - Immunization history:: Adult Immunizations up to date, Last tetanus immunization: up to date. - Ebola Screening: : Patient negative for fever greater than or equal to 101.5 degrees Fahrenheit, and additional compatible Ebola Virus Disease symptoms Patient denies exposure to infectious person Patient denies travel to an Ebola-affected area in the 21 days before illness onset No symptoms or risks identified at this time. - Family history:: not pertinent. - Social history:: Smoking status: Patient/guardian denies using tobacco. - Hospitalizations: : No recent hospitalization is reported. ROS: 10:16 Constitutional: Negative for fever, chills, and weight loss, Eyes: Negative for injury, rn pain, redness, and discharge, Neck: Negative for injury, pain, and swelling, Cardiovascular: Negative for chest pain, palpitations, and edema, Respiratory: Negative for shortness of breath, cough, wheezing, and pleuritic chest pain, Abdomen/GI: Negative for abdominal pain, nausea, vomiting, diarrhea, and constipation, Back: + injury and pain MS/Extremity: + RUE injury and skin tear Neuro: Negative for headache, weakness, numbness, tingling, and seizure. Exam: 10:16 Constitutional: This is a well developed, well nourished patient who is awake, alert, rn and in no acute distress. Head/Face: Normocephalic, atraumatic. Eyes: Pupils equal round and reactive to light, extra-ocular motions intact. Lids and lashes normal. Conjunctiva and sclera are non-icteric and not injected. Cornea within normal limits. Periorbital areas with no swelling, redness, or edema. Neck: Trachea midline, no thyromegaly or masses palpated, and no cervical lymphadenopathy. Supple, full range of motion without nuchal rigidity, or vertebral point tenderness. No Meningismus. Chest/axilla: No rib tenderness or crepitus Cardiovascular: Regular rate and rhythm. No pulse deficits. Respiratory: Lungs have equal breath sounds bilaterally, clear to auscultation, No increased work of breathing Back: No spinal tenderness. + left periscapular tenderness, no skin changes or lacerations, no crepitus MS/ Extremity: Pulses equal, no cyanosis. Neurovascular intact. Full, normal range of motion. Equal circumference. + approx 8cm irregular superficial skin tear involving RUE mid humerus, small 3cm linear skin tear proximal right forearm. Neuro: Awake and alert, GCS 15, oriented to person, place, time, and situation. Cranial nerves II-XII grossly intact. Motor strength 5/5 in all extremities. Sensory grossly intact. Cerebellar exam normal. Normal gait. Vital Signs: 09:50 BP 115 / 70; Pulse 77; Resp 16; Pulse Ox 100% on R/A; Pain 3/10; sg 09:55 Weight 59.87 kg (M); Height 5 ft. 4 in. (162.56 cm) (R); sg 10:50 BP 112 / 70; Pulse 77; Resp 16 S; Pulse Ox 100% on R/A; Pain 2/10; sg 09:55 Body Mass Index 22.66 (59.87 kg, 162.56 cm) MDM: 09:34 Patient medically screened. rn 10:26 Differential diagnosis: contusion, fracture, sprain, strain. Differential diagnosis: rn abrasion. Data reviewed: vital signs, nurses notes, radiologic studies, plain films, and as a result, I will discharge patient. Counseling: I had a detailed discussion with the patient and/or guardian regarding: the historical points, exam findings, and any diagnostic results supporting the discharge/admit diagnosis, radiology results, the need for outpatient follow up, to return to the emergency department if symptoms worsen or persist or if there are any questions or concerns that arise at home. Special discussion: I discussed with the patient/guardian in detail that at this point there is no indication for admission to the hospital. It is understood, however, that if the symptoms persist or worsen the patient needs to return immediately for re-evaluation. 05/26 09:39 Order name: XRAY Thoracic Spine (Ap/lat); Complete Time: 10:26 rn Administered Medications: No medications were administered Disposition: 05/26/18 10:27 Discharged to Home. Impression: Abrasion of forearm, Abrasion of right upper arm, Contusion of left back wall of thorax. - Condition is Stable. - Discharge Instructions: Contusion, Skin Tear Care. - Medication Reconciliation Form, Thank You Letter, Antibiotic Education, Prescription Opioid Use form. - Follow up: Miriam Saini MD; When: As needed; Reason: Recheck today's complaints, Re-evaluation by your physician. - Problem is new. - Symptoms have improved. Signatures: Dispatcher [employer] EDMS Ajit Jacome RN RN sg Williams, Irene, RN RN Angel Gurrola MD MD pricing intern: (The following items were deleted from the chart) 10:53 10:27 05/26/2018 10:27 Discharged to Home. Impression: Abrasion of forearm; Abrasion of sg right upper arm; Contusion of left back wall of thorax. Condition is Stable. Forms are Medication Reconciliation Form, Thank You Letter, Antibiotic Education, Prescription Opioid Use. Follow up: Miriam Saini; When: As needed; Reason: Recheck today's complaints, Re-evaluation by your physician. Problem is new. Symptoms have improved. rn
== END 2018-05-26 10:53 | disposition home or self-care (01) ==
LOC: ER 09:05
DX: S20.222A Contusion of left back wall of thorax, initial encounter (principal); S40.811A Abrasion of right upper arm, initial encounter; W18.39XA Other fall on same level, initial encounter; Y93.9 Activity, unspecified; Y92.002 Bathroom of unspecified non-institutional (private) residence as the place of occurrence of the external cause; Z88.5 Allergy status to narcotic agent; I10 Essential (primary) hypertension; F03.90 Unspecified dementia, unspecified severity, without behavioral disturbance, psychotic disturbance, mood disturbance, and anxiety
CPT/HCPCS: 72070; 99284

== ENCOUNTER 2019-10-10 08:28 | Observation (INO) | payer OTHER ==
--- OUTSIDE RECORDS SUMMARY | 2019-10-10 08:31 | XMS REPORT ---
:1935 [facility] Address [address] [place] [id number] Care Team Providers Name Role Phone JONAH SCOTT DALE Unavailable Unavailable Problems This patient has no known problems. Allergies, Adverse Reactions, Alerts This patient has no known allergies or adverse reactions. Medications This patient has no known medications. Results Test Description Test Time Test Comments Text Results Atomic Results Result Comments TROPONIN I 2017-01-04 09:28:00 Test Item Value Reference Range Comments TROPONIN I (BEAKER) (test isfl=559) 0.02 ng/mL 0.00-0.03 Effective 06/27/2014: Reference Range [...] acidosis, acute neurological disease, and persistent tachyarrhythmia.HEMOGLOBIN [id number] 07 :32:00 Test Item Value Reference Range Comments HEMOGLOBIN A1C (BEAKER) (test gvox=582) 5.1 % 4.3-6.1 FastingVITAMIN [id number] 05:27:00 Test Item Value Reference Range Comments VITAMIN B12 (BEAKER) (test swgm=928) 374 pg/mL 213-816 TSH/FREE T4 IF [id number] 05:27:00 Test Item Value Reference Range Comments THYROID STIMULATING HORMONE (BEAKER) (test 1.01 uIU/mL 0.35-4.94 gvmv=094) CREATINE KINASE (CK), TOTAL AND [id number] 05:10:00 Test Item Value Reference Range Comments CREATINE KINASE TOTAL (BEAKER) (test nicf=128) 80 U/L 29-200 CREATINE KINASE-MB (BEAKER) (test vqqe=500) 2.0 ng/mL 0.0-6.6 CREATINE KINASE-MB INDEX (BEAKER) (test bqxc=982) 2.5 % Effective 06/27/2014: CK-MB Reference Range ChangeNew: 0.0-6.6 Previous: 0.0- 4.9CK-MB Reference Range:<6.7 Normal6.7-10.0 Borderline>10.0 AbnormalFastingFastingTROPONIN [id number] 05:10:00 Test Item Value Reference Range Comments TROPONIN I (BEAKER) (test tppl=806) 0.02 ng/mL 0.00-0.03 Effective 06/27/2014: Reference Range [...] acidosis, acute neurological disease, and persistent tachyarrhythmia.FastingLIPID [id number] 05:03:00 Test Item Value Reference Range Comments TRIGLYCERIDES (BEAKER) (test 102 mg/dL Specimen slightly hemolyzed bcii=993) CHOLESTEROL (BEAKER) (test 197 mg/dL Specimen slightly hemolyzed nmox=363) HDL CHOLESTEROL (BEAKER) (test 55 mg/dL dbzo=702) LDL CHOLESTEROL CALCULATED 122 mg/dL (BEAKER) (test gdch=317) Triglyceride Reference Range: Low Risk <150 Borderline 150- 199 High Risk 200-499 Very High Risk >=500Cholesterol Reference Range: Low Risk <200 Borderline 200-239 High Risk > 240HDL Cholesterol Reference Range: Low Risk >=60 High Risk <40LDL Cholesterol Reference Range: Optimal <100 Near Optimal 100-129 Borderline 130-159 High 160-189 Very High >=190 Fasting
--- OUTSIDE RECORDS SUMMARY | 2019-10-10 08:31 | XMS REPORT ---
[...] End Status Dosage System Date Date Lisinopril [facility] 18105940409 10 MG Orally December 28, Active 1 tablet Once daily; 2018 take 2nd tablet as needed if BP is > sm=753/90; max of 20 mg/day Atorvastatin [facility] 26994460305 80 MG Orally December 28, Active 1 tablet Calcium Once a day 2018 in evening Fish Oil [facility] 41468046981 435 MG Orally Active 1 capsule Once a day PreserVision [facility] 36040418118 - Orally Active not AREDS 2 defined Ciprofloxacin HCl [facility] 43180027563 500 MG Orally Active 1 tablet Twice a day x3 days Results No Known Results Summary Purpose eClinicalWorks Submission
--- OUTSIDE RECORDS SUMMARY | 2019-10-10 08:31 | XMS REPORT ---
[...] End Status Dosage System Date Date PreserVision [facility] 53316301459 - Orally Active not AREDS 2 defined Ciprofloxacin [facility] [address]-00 500 MG Orally Active 1 tablet HCl Twice a day x3 days Atorvastatin [place] 43874016422 80 MG Orally December 28, Active 1 tablet Calcium Once a day 2017 Lisinopril [place] 08287718132 10 MG Orally Active 1 tablet Once a day Lisinopril ND 41220704963 10 MG Orally December 28, Active 1 tablet Once a day 2017 Atorvastatin [facility] 04459363473 80 MG Orally Active 1 tablet Calcium Once a day Fish Oil [facility] 05747645013 435 MG Orally Active 1 capsule Once a day Results No Known Results Summary Purpose eClinicalWorks Submission
--- OUTSIDE RECORDS SUMMARY | 2019-10-10 08:32 | XMS REPORT ---
:1935 Author Organization [employer] Care Team Providers Name Role Phone Miriam Saini Provider Role Unavailable Allergies, Adverse Reactions, Alerts Substance Reaction Event Type N.K.D.A. Info Not Available Non Drug Allergy Problems Problem Type Condition Code Onset Dates Condition Status Assessment Polyarthralgia M25.50 Active Problem Scoliosis, unspecified scoliosis M41.9 Active type, unspecified spinal region Assessment Dementia without behavioral F03.90 Active disturbance, unspecified dementia type Problem Dementia without behavioral F03.90 Active disturbance, unspecified dementia type Assessment Hypercholesterolemia E78.00 Active Problem Hypertension, unspecified type I10 Active Problem Status post fall Z91.81 Active Problem Hypercholesterolemia E78.00 Active Problem Shortness of breath R06.02 Active Problem Nausea R11.0 Active Problem Hyperglycemia R73.9 Active Problem Essential hypertension I10 Active Assessment Essential hypertension I10 Active Problem Fluctuating blood pressure I99.8 Active Problem Elevated brain natriuretic peptide R79.89 Active (BNP) level Problem Acute pain of left shoulder M25.512 Active Problem Decreased appetite R63.0 Active Problem Osteopenia M85.80 Active Problem Neck pain M54.2 Active Problem Low back pain M54.5 Active Problem Scoliosis M41.9 Active Problem Other chronic pain G89.29 Active Problem Hypercholesterolemia E78.00 Active Problem Memory loss R41.3 Active Problem Pain in left knee M25.562 Active Medications Medication Code Code Instructions Start End Status Dosage System Date Date Aricept [facility] [address]-50 Orally Once a Active as day directed Fish Oil [facility] 00414715150 435 MG Orally Active 1 capsule Once a day Lidoderm [facility] 41876863423 5 % Externally Sep 28October Active 1 patch to as directed 2018, affected 2019 area(s); remove after [address] [facility] 05397040795 10 MG Orally December 28, Active 1 tablet Once daily; 2017 take 2nd tablet as needed if BP is > pk=264/90; max of 20 mg/day Namenda [facility] [address]-61 Orally Twice a Active As day directed Atorvastatin [facility] 72835742057 80 MG Orally December 28, Active 1 tablet Calcium Once a day 2018 in evening PreserVision [facility] 69605741299 - Orally Active not AREDS [address] [facility] 74824151638 500 MG Orally Active 1 tablet HCl Twice a day x3 days Results No Known Results Summary Purpose eClinicalWorks Submission
--- OUTSIDE RECORDS SUMMARY | 2019-10-10 08:32 | XMS REPORT ---
[...] Start End Date Status Dosage Date Meloxicam [facility] 91971102293 7.5 MG Orally Mar 30, Apr 29, Active 1 tablet Once daily (take 2017 2017 as needed with food) for pain Results No Known Results Summary Purpose eClinicalWorks Submission
--- NOTE | 2019-10-10 09:16 | RAD REPORT ---
EXAM DESCRIPTION: CT - CTHCSPWOC - 10/10/2019 8:55 am CLINICAL HISTORY: Trauma, head and neck injury. PAIN COMPARISON: Facial Bones W/ Mpr dated 10/10/2019 TECHNIQUE: Axial 5 mm thick images of the head were obtained. Axial 2 mm thick images of the cervical spine were obtained with sagittal and coronal reconstruction images generated and reviewed. All CT scans are performed using dose optimization technique as appropriate and may include automated exposure control or mA/KV adjustment according to patient size. FINDINGS: CT HEAD WITHOUT CONTRAST: No acute hemorrhage, hydrocephalus or extra-axial collection is identified.Advanced generalized brain atrophy is present with advanced periventricular and deep white matter chronic microvascular ischemi c changes.No areas of brain edema or midline shift. Air-fluid level seen in left maxillary antrum.Vertebrobasilar atherosclerotic changes.The calvarium i s intact. CT CERVICAL SPINE WITHOUT CONTRAST: No fracture or subluxation.Multilevel degenerative changes are present throughout the cervical spine. 2 mm degenerative anterolisthesis of C2 on 3. 3 mm degenerative anterolisthesis of C3 on 4. 3 mm deg enerative anterolisthesis of C4 on 5. 3 mm degenerative anterolisthesis of C7 on T1.No prevertebral s oft tissues swelling is identified. IMPRESSION: No acute intracranial abnormality is identified.Air-fluid level seen left maxillary antr um compatible with sinusitis. No acute cervical spine fracture or subluxation. Multilevel degenerative anterolisthesis is present a s detailed.
--- NOTE | 2019-10-10 09:21 | RAD REPORT ---
EXAM DESCRIPTION: CT - CTFB CLINICAL HISTORY: FACIAL PAIN Fall, trauma, facial pain and swelling. COMPARISON: No comparisons TECHNIQUE: Axial 2 mm thick images of the face were obtained with sagittal and coronal reconstructio n images. All CT scans are performed using dose optimization technique as appropriate and may include automated exposure control or mA/KV adjustment according to patient size. FINDINGS: No acute facial bone fracture is seen.The mandible is intact. The globes and orbital contents are grossly unremarkable.Fluid is present in the left maxillary antru m. The paranasal sinuses and mastoids are otherwise clear. IMPRESSION: Negative for facial bone fracture. Left maxillary sinus fluid.
[2019-10-10] MEDS ORDERED: LIDOCAINE 1% W/EPI 1:100,000 MDV 20 ML VIAL ONE (09:24)
[2019-10-10] MEDS ORDERED: NA CHLORIDE 0.9% 1,000 ML ONE (09:25)
[2019-10-10] MEDS ORDERED: CEFAZOLIN/SWI 1gm 1 GM/10 ML SYR ONE (09:25)
--- NOTE | 2019-10-10 09:26 | RAD REPORT ---
EXAM DESCRIPTION: RAD - Chest Single View - 10/10/2019 9:04 am CLINICAL HISTORY: COUGH Chest pain. COMPARISON: Chest Pa And Lat (2 Views) dated 02/03/2019; Chest Single View dated 03/21/2018; Chest Sin gle View dated 01/03/2017 FINDINGS: Portable technique limits examination quality. The lungs are emphysematous but grossly clear. The heart is normal in size. No displaced fractures. IMPRESSION: Mild COPD.
[2019-10-10 10:23] LABS: Absolute Lymphocytes (CBC) 1.5 K/uL (0.7-4.9); Basophils % 0.4 % (0-1.3); Hematocrit 38.2 % (36.0-45.0); Lymphocytes % 19.6 % (15.3-44.8); Protime INR 0.97; RBC Red Blood Cell Count 3.83 M/uL (3.86-4.86)
[2019-10-10] MEDS ORDERED: ONDANSETRON 4 MG/2 ML VIAL ONE (10:29)
[2019-10-10] MEDS ORDERED: FENTANYL CITR 100 MCG/2 ML ONE (10:29)
[2019-10-10 10:39] LABS: Albumin 3.8 g/dL (3.4-5.0); Bilirubin Direct 0.2 mg/dL (0-0.2); Bilirubin Total 0.7 mg/dL (0.2-1.0); Magnesium 2.2 mg/dL (1.8-2.4); Potassium 4.5 mmol/L (3.5-5.1); Protein, Total 7.2 g/dL (6.4-8.2); Troponin (Emerg Dept Use Only) 0.1 ng/mL (0.0-0.045)
[2019-10-10 10:50] LABS: Urine Blood NEGATIVE (NEG); Urine Glucose NEGATIVE (NEG); Urine Protein NEGATIVE (NEG); Urine pH 7.5 (5.0-7.0)
--- NOTE | 2019-10-10 11:12 | EDPHYS ---
Physician Documentation [facility] Name: Liliane Mejia Age: 84 yrs Sex: Female : 1935 Arrival Date: 10/10/2019 Time: 08:35 Bed 4 Private MD: ED Physician Leonid Esqueda HPI: 10/09 08:40 This 84 yrs old Female presents to ER via Unassigned with complaints of fall nain , facial injury, positive loc. 08:40 The patient or guardian reports deformity, injury, pain, swelling, tenderness. The nain complaints affect the left cheek, left eye and mouth. Context of injury: The problem was sustained at a retirement or assisted living facility. Onset: The symptoms/episode began/occurred just prior to arrival. Associated signs and symptoms: The patient has no apparent associated signs or symptoms. Severity of symptoms: At their worst the symptoms were mild, in the emergency department the symptoms are unchanged. The patient has not experienced similar symptoms in the past. Historical: - Allergies: 09:14 Codeine; ph - Home Meds: 09:14 acetaminophen 500 mg Oral tab [Active]; ph - Immunization history: Last tetanus immunization: - up to date. - Family history:: not pertinent. - Social history:: Smoking status: Patient denies any tobacco usage or history of. ROS: 08:41 Constitutional: Negative for fever, chills, and weight loss, Eyes: Negative for injury, nain pain, redness, and discharge, ENT: Negative for injury, pain, and discharge, Neck: Negative for injury, pain, and swelling, Cardiovascular: Negative for chest pain, palpitations, and edema, Respiratory: Negative for shortness of breath, cough, wheezing, and pleuritic chest pain, Abdomen/GI: Negative for abdominal pain, nausea, vomiting, diarrhea, and constipation, Back: Negative for injury and pain, : Negative for injury, bleeding, discharge, and swelling, MS/Extremity: Negative for injury and deformity, Neuro: Negative for headache, weakness, numbness, tingling, and seizure, Psych: Negative for depression, anxiety, suicide ideation, homicidal ideation, and hallucinations, Allergy/Immunology: Negative for hives, rash, and allergies, Endocrine: Negative for neck swelling, polydipsia, polyuria, polyphagia, and marked weight changes, Hematologic/Lymphatic: Negative for swollen nodes, abnormal bleeding, and unusual bruising. 08:41 Skin: Positive for laceration(s), swelling, of the face. Exam: 08:41 Constitutional: This is a well developed, well nourished patient who is awake, alert, nain and in no acute distress. Eyes: Pupils equal round and reactive to light, extra-ocular motions intact. Lids and lashes normal. Conjunctiva and sclera are non-icteric and not injected. Cornea within normal limits. Periorbital areas with no swelling, redness, or edema. ENT: Nares patent. No nasal discharge, no septal abnormalities noted. Tympanic membranes are normal and external auditory canals are clear. Oropharynx with no redness, swelling, or masses, exudates, or evidence of obstruction, uvula midline. Mucous membranes moist. Neck: Trachea midline, no thyromegaly or masses palpated, and no cervical lymphadenopathy. Supple, full range of motion without nuchal rigidity, or vertebral point tenderness. No Meningismus. Chest/axilla: Normal chest wall appearance and motion. Nontender with no deformity. No lesions are appreciated. Cardiovascular: Regular rate and rhythm with a normal S1 and S2. No gallops, murmurs, or rubs. Normal PMI, no JVD. No pulse deficits. Respiratory: Lungs have equal breath sounds bilaterally, clear to auscultation and percussion. No rales, rhonchi or wheezes noted. No increased work of breathing, no retractions or nasal flaring. Abdomen/GI: Soft, non-tender, with normal bowel sounds. No distension or tympany. No guarding or rebound. No evidence of tenderness throughout. Back: No spinal tenderness. No costovertebral tenderness. Full range of motion. Skin: Warm, dry with normal turgor. Normal color with no rashes, no lesions, and no evidence of cellulitis. MS/ Extremity: Pulses equal, no cyanosis. Neurovascular intact. Full, normal range of motion. Neuro: Awake and alert, GCS 15, oriented to person, place, time, and situation. Cranial nerves II-XII grossly intact. Motor strength 5/5 in all extremities. Sensory grossly intact. Cerebellar exam normal. Normal gait. Psych: Awake, alert, with orientation to person, place and time. Behavior, mood, and affect are within normal limits. 08:41 Head/face: Noted is contusion, ecchymosis, hematoma, a laceration(s), that is deep, 2.5 cm(s), of the left eye and mouth, swelling. Vital Signs: 08:44 BP 171 / 82; Pulse 74; Resp 18; Temp 97.3; Pulse Ox 99% on R/A; Weight 56.25 kg; Height ph 5 ft. 7 in. (170.18 cm); 10:00 BP 165 / 71; Pulse 69; Resp 18; Pulse Ox 99% on R/A; ph 11:00 BP 160 / 72; Pulse 70; Resp 16; Pulse Ox 98% on R/A; ph 12:24 BP 176 / 76; Pulse 69; Resp 18; Temp 97.5; Pulse Ox 98% on R/A; ph 08:44 Body Mass Index 19.42 (56.25 kg, 170.18 cm) ph Viktoria Coma Score: 08:40 Eye Response: spontaneous(4). Verbal Response: oriented(5). Motor Response: obeys nain commands(6). Total: 15. 09:09 Eye Response: spontaneous(4). Verbal Response: confused(4). Motor Response: obeys ph commands(6). Total: 14. 10:00 Eye Response: spontaneous(4). Verbal Response: confused(4). Motor Response: obeys ph commands(6). Total: 14. 11:00 Eye Response: spontaneous(4). Verbal Response: confused(4). Motor Response: obeys ph commands(6). Total: 14. 12:24 Eye Response: spontaneous(4). Verbal Response: confused(4). Motor Response: obeys ph commands(6). Total: 14. Trauma Score (Adult): 09:09 Eye Response: spontaneous(1); Verbal Response: confused(1); Motor Response: obeys ph commands(2); Systolic BP: > 89 mm Hg(4); Respiratory Rate: 10 to 29 per min(4); [place] Score: 14; Trauma Score: 12; pt at baseline, hx of demetia 10:00 Eye Response: spontaneous(1); Verbal Response: confused(1); Motor Response: obeys ph commands(2); Systolic BP: > 89 mm Hg(4); Respiratory Rate: 10 to 29 per min(4); [place] Score: 14; Trauma Score: 12 11:00 Eye Response: spontaneous(1); Verbal Response: confused(1); Motor Response: obeys ph commands(2); Systolic BP: > 89 mm Hg(4); Respiratory Rate: 10 to 29 per min(4); [place] Score: 14; Trauma Score: 12 12:24 Eye Response: spontaneous(1); Verbal Response: confused(1); Motor Response: obeys ph commands(2); Systolic BP: > 89 mm Hg(4); Respiratory Rate: 10 to 29 per min(4); [place] Score: 14; Trauma Score: 12 Laceration: 09:45 Wound Repair of 2.5cm ( 1.0in ) subcutaneous laceration to face and mouth and left eye. nain Irregularly shaped.. Distal neuro/vascular/tendon intact. Anesthesia: Local anesthetic administered with 3 mls of 1% lidocaine w/ Epi, Local anesthetic administered with 2 mls of 1% lidocaine w/ Epi. Wound prep: Simple cleansing by me. Skin closed with 2 5-0 Prolene using interrupted sutures and sterile technique. Dressed with Neosporin. Patient tolerated well. MDM: 08:36 Patient medically screened. [facility] 08:42 Data reviewed: vital signs, nurses notes, lab test result(s), EKG, radiologic studies, [facility] CT scan, plain films. 10/09 08:40 Order name: Basic Metabolic Panel; Complete Time: 11:03 [facility] 10/09 08:40 Order name: CBC with Diff; Complete Time: 11:03 [facility] 10/09 08:40 Order name: LFT's; Complete Time: 11:03 [facility] 10/09 08:40 Order name: Magnesium; Complete Time: 11:03 [facility] 10/09 08:40 Order name: NT PRO-BNP; Complete Time: 11:03 [facility] 10/09 08:40 Order name: PT-INR; Complete Time: 11:03 [facility] 10/09 08:40 Order name: Troponin (emerg Dept Use Only); Complete Time: 11:03 [facility] 10/09 08:40 Order name: XRAY Chest (1 view); Complete Time: 09:42 [facility] 10/09 08:40 Order name: CT Head C Spine; Complete Time: 09:24 [facility] 10/09 08:40 Order name: CT Facial Bones W/O Con; Complete Time: 09:24 [facility] 10/09 08:40 Order name: Urine Culture [facility] 10/09 10:47 Order name: Urine Dipstick--Ancillary (enter results); Complete Time: 11:03 bd 10/09 11:13 Order name: Echo w/ Doppler [facility] 10/09 11:13 Order name: Carotid Artery Bilateral [facility] 10/09 08:40 Order name: EKG; Complete Time: 08:42 [facility] 10/09 08:40 Order name: Cardiac monitoring; Complete Time: 09:16 [facility] 10/09 08:40 Order name: EKG - Nurse/Tech; Complete Time: 09:56 [facility] 10/09 08:40 Order name: IV Saline Lock; Complete Time: 09:16 [facility] 10/09 08:40 Order name: Labs collected and sent; Complete Time: 10:14 [facility] 10/09 08:40 Order name: O2 Per Protocol; Complete Time: 09:56 [facility] 10/09 08:40 Order name: O2 Sat Monitoring; Complete Time: 09:56 [facility] 10/09 08:40 Order name: Urine Dipstick-Ancillary (obtain specimen); Complete Time: 13:20 [facility] 10/09 12:58 Order name: EDPA 10/09 08:40 Order name: Ice pack; Complete Time: 09:56 [facility] Administered Medications: 09:35 Drug: Lidocaine-Epinephrine -2 % (1:100,000) 10 ml Route: Infiltration; ph 13:19 Follow up: Response: No adverse reaction ph 10:12 Drug: NS 0.9% 1000 ml Route: IV; Rate: 1 bolus; Site: right antecubital; ph 13:19 Follow up: Response: No adverse reaction; IV Status: Completed infusion; IV Intake: ph 1000ml 10:13 Drug: Ancef 1 grams Route: IVPB; Site: right antecubital; ph 13:20 Follow up: Response: No adverse reaction; IV Status: Completed infusion ph 10:33 Drug: Zofran (Ondansetron) 4 mg Route: IVP; Site: right antecubital; ph 13:18 Follow up: Response: No adverse reaction ph 10:35 Drug: fentaNYL (PF) 25 mcg Route: IVP; Site: right antecubital; ph 11:05 Follow up: Response: No adverse reaction; Pain is decreased ph 12:23 Drug: Aspirin 81 mg Route: PO; ph 13:18 Follow up: Response: No adverse reaction ph 12:24 Drug: Rocephin 1 grams Route: IV; Rate: per protocol; Site: right antecubital; ph 13:19 Follow up: Response: No adverse reaction; IV Status: Completed infusion ph Disposition: 10/10/19 11:11 Hospitalization ordered by Michael Hollis for Observation. Preliminary diagnosis are Syncope and collapse - near, Weakness, Fall due to bumping against object, Laceration without foreign body of other part of head - lip, brow, Urinary tract infection, site not specified, Acute sinusitis. - Bed requested for Telemetry/MedSurg (observation). - Status is Observation. ph - Condition is Stable. - Problem is new. - Symptoms have improved. Signatures: Dispatcher [employer] Lisbeth Breen RN RN Leonid Loredo MD MD cha Hall, Patricia, RN RN ph Corrections: (The following items were deleted from the chart) 12:09 11:11 Hospitalization Ordered by Michael Hollis DO for Observation. Preliminary dw diagnosis is Syncope and collapse - near; Weakness; Fall due to bumping against object; Laceration without foreign body of other part of head - lip, brow; Urinary tract infection, site not specified; Acute sinusitis. Bed requested for Telemetry/MedSurg (observation). Status is Observation. Condition is Stable. Problem is new. Symptoms have improved. [facility] 13:20 12:09 10/10/2019 11:11 Hospitalization Ordered by Michael Hollis DO for Observation. ph Preliminary diagnosis is Syncope and collapse - near; Weakness; Fall due to bumping against object; Laceration without foreign body of other part of head - lip, brow; Urinary tract infection, site not specified; Acute sinusitis. Bed requested for Telemetry/MedSurg (observation). Status is Observation. Condition is Stable. Problem is new. Symptoms have improved. dw
--- NOTE | 2019-10-10 11:12 | ER ---
Nurse's Notes [facility] Name: Liliane Mejia Age: 84 yrs Sex: Female : 1935 Arrival Date: 10/10/2019 Time: 08:35 Bed 4 Private MD: Diagnosis: Syncope and collapse-near;Weakness;Fall due to bumping against object;Laceration without foreign body of other part of head-lip, brow;Urinary tract infection, site not specified;Acute sinusitis Presentation: 10/09 08:44 Chief complaint: EMS states: Pt from [facility], had unwitnessed fall, found unconscious ph by staff, does not take blood thinners, injuries noted to L side of face, lacerations to L eyebrow and L lower lip, swelling to L cheek, family reports hx of orthostatic hypotension. Coronavirus screen: The patient has NOT traveled to Center in the past 14 days. The patient has NOT had contact with known and/or suspected case of Coronavirus. Ebola Screen: No symptoms or risks identified at this time. Initial Sepsis Screen: Does the patient meet any 2 criteria? No. Patient's initial sepsis screen is negative. Does the patient have a suspected source of infection? No. Patient's initial sepsis screen is negative. Risk Assessment: Do you want to hurt yourself or someone else? Patient reports no desire to harm self or others. 08:44 Method Of Arrival: EMS: [facility] 08:44 Acuity: ROSA 2 ph 08:53 Care prior to arrival: None. Mechanism of Injury: Fall from standing position. Trauma ph event details: Injury occurred in the [facility], Injury occurred: in an institution. Injury occurred: October 10, 2019. Trauma Activation: Alert Physician: ED Physician; Name: ; Notified At: ; Arrived At: Physician: General Surgeon; Name: ; Notified At: ; Arrived At: Physician: Radiology; Name: ; Notified At: ; Arrived At: Physician: Respiratory; Name: ; Notified At: ; Arrived At: Physician: Lab; Name: ; Notified At: ; Arrived At: Historical: - Allergies: 09:14 Codeine; ph - Home Meds: 09:14 acetaminophen 500 mg Oral tab [Active]; ph - Immunization history: Last tetanus immunization: - up to date. - Family history:: not pertinent. - Social history:: Smoking status: Patient denies any tobacco usage or history of. Screenin:08 Abuse screen: Denies threats or abuse. Denies injuries from another. Nutritional ph screening: No deficits noted. Tuberculosis screening: No symptoms or risk factors identified. Fall Risk Fall in past 12 months (25 points). Secondary diagnosis (15 points) dementia, Ambulatory Aid- None/Bed Rest/Nurse Assist (0 pts). Gait- Normal/Bed Rest/Wheelchair (0 pts) Mental Status- Oriented to own ability (0 pts). Primary Survey: 08:54 NO uncontrolled hemorrhage observed. A: The patient is alert. Airway: patent, No ph supplemental oxygen in use on arrival. Oral cavity: clear, Trachea midline. Breathing/Chest: Respiratory pattern: regular, Chest inspection: symmetrical rise and fall of the chest. Circulation: Skin color: pink, Skin temperature: warm, dry. Disability Alert. Exposure/Environment: There is no evidence of uncontrolled external bleeding. Obvious injury(ies) are noted at this time: Bruising noted to L side of face, laceration to L eyebrow w/ minimal bleeding, laceration to L lower lip w/ minimal bleeding, swelling to L cheek A warming method has been applied: A warm blanket has been provided to the patient. 12:00 Reassessment Airway Airway Patent Breathing/Chest Respiratory pattern Regular ph Respiratory effort Spontaneous Unlabored Circulation Color Rupert Temperature Warm Dry Disability Alert. Secondary Survey: 08:57 HEENT: Face Other swelling noted to L cheek Eyes: Other laceration to L eyebrow, ph swelling noted to L cheek. Musculoskeletal: Circulation, motion, and sensation intact. Range of motion:. Assessment: 09:00 General: Appears in no apparent distress. comfortable, slender, well groomed, Behavior ph is calm, cooperative. Pain: Complains of pain in left eye and left cheek. Neuro: Level of Consciousness is awake, alert, obeys commands, Oriented to person, place, situation. Cardiovascular: Capillary refill < 3 seconds in bilateral fingers Patient's skin is warm and dry. Respiratory: Airway is patent Respiratory effort is even, unlabored. Derm: Skin is fragile, is thin, Skin is pink, warm \T\ dry. Bruising that is dark purple, on left eye and left cheek. Musculoskeletal: Circulation, motion, and sensation intact. Range of motion: intact in all extremities, Swelling present in left cheek. Injury Description: Laceration sustained to left eye and mouth. 10:00 Reassessment: Patient appears in no apparent distress at this time. No changes from ph previously documented assessment. Patient and/or family updated on plan of care and expected duration. Pain level reassessed. 11:00 Reassessment: Patient appears in no apparent distress at this time. No changes from ph previously documented assessment. Patient and/or family updated on plan of care and expected duration. Pain level reassessed. 12:50 Reassessment: Patient appears in no apparent distress at this time. Patient and/or ph family updated on plan of care and expected duration. Pain level reassessed. Pt awake and alert, oriented to person and place, attempted to call report to 4th floor, placed on hold for >5 min. Vital Signs: 08:44 BP 171 / 82; Pulse 74; Resp 18; Temp 97.3; Pulse Ox 99% on R/A; Weight 56.25 kg; Height ph 5 ft. 7 in. (170.18 cm); 10:00 BP 165 / 71; Pulse 69; Resp 18; Pulse Ox 99% on R/A; ph 11:00 BP 160 / 72; Pulse 70; Resp 16; Pulse Ox 98% on R/A; ph 12:24 BP 176 / 76; Pulse 69; Resp 18; Temp 97.5; Pulse Ox 98% on R/A; ph 08:44 Body Mass Index 19.42 (56.25 kg, 170.18 cm) ph Viktoria Coma Score: 08:40 Eye Response: spontaneous(4). Verbal Response: oriented(5). Motor Response: obeys nain commands(6). Total: 15. 09:09 Eye Response: spontaneous(4). Verbal Response: confused(4). Motor Response: obeys ph commands(6). Total: 14. 10:00 Eye Response: spontaneous(4). Verbal Response: confused(4). Motor Response: obeys ph commands(6). Total: 14. 11:00 Eye Response: spontaneous(4). Verbal Response: confused(4). Motor Response: obeys ph commands(6). Total: 14. 12:24 Eye Response: spontaneous(4). Verbal Response: confused(4). Motor Response: obeys ph commands(6). Total: 14. Trauma Score (Adult): 09:09 Eye Response: spontaneous(1); Verbal Response: confused(1); Motor Response: obeys ph commands(2); Systolic BP: > 89 mm Hg(4); Respiratory Rate: 10 to 29 per min(4); [place] Score: 14; Trauma Score: 12; pt at baseline, hx of demetia 10:00 Eye Response: spontaneous(1); Verbal Response: confused(1); Motor Response: obeys ph commands(2); Systolic BP: > 89 mm Hg(4); Respiratory Rate: 10 to 29 per min(4); [place] Score: 14; Trauma Score: 12 11:00 Eye Response: spontaneous(1); Verbal Response: confused(1); Motor Response: obeys ph commands(2); Systolic BP: > 89 mm Hg(4); Respiratory Rate: 10 to 29 per min(4); [place] Score: 14; Trauma Score: 12 12:24 Eye Response: spontaneous(1); Verbal Response: confused(1); Motor Response: obeys ph commands(2); Systolic BP: > 89 mm Hg(4); Respiratory Rate: 10 to 29 per min(4); [place] Score: 14; Trauma Score: 12 ED Course: 08:35 Patient arrived in ED. nain 08:36 Leonid Esqueda MD is Attending Physician. nain 08:44 Lore Nye, RN is Primary Nurse. ph 08:53 Triage completed. ph 08:53 Arm band placed on Patient placed in an exam room, on a stretcher. ph 08:56 CT Head C Spine In Process Unspecified. EDMS 08:56 CT Facial Bones W/O Con In Process Unspecified. EDMS 09:04 XRAY Chest (1 view) In Process Unspecified. EDMS 09:11 Patient has correct armband on for positive identification. Bed in low position. Call ph light in reach. Side rails up X 1. Pulse ox on. NIBP on. Door closed. Noise minimized. Warm blanket given. 09:11 Patient maintains SpO2 saturation greater than 95% on room air. Thermoregulation: warm ph blanket given to patient. 09:32 EKG done, by helpdesk technician. reviewed by Leonid Esqueda MD. at1 11:09 Michael Hollis DO is Hospitalizing Provider. nain 13:18 No provider procedures requiring assistance completed. Patient admitted, IV remains in ph place. Administered Medications: 09:35 Drug: Lidocaine-Epinephrine -2 % (1:100,000) 10 ml Route: Infiltration; ph 13:19 Follow up: Response: No adverse reaction ph 10:12 Drug: NS 0.9% 1000 ml Route: IV; Rate: 1 bolus; Site: right antecubital; ph 13:19 Follow up: Response: No adverse reaction; IV Status: Completed infusion; IV Intake: ph 1000ml 10:13 Drug: Ancef 1 grams Route: IVPB; Site: right antecubital; ph 13:20 Follow up: Response: No adverse reaction; IV Status: Completed infusion ph 10:33 Drug: Zofran (Ondansetron) 4 mg Route: IVP; Site: right antecubital; ph 13:18 Follow up: Response: No adverse reaction ph 10:35 Drug: fentaNYL (PF) 25 mcg Route: IVP; Site: right antecubital; ph 11:05 Follow up: Response: No adverse reaction; Pain is decreased ph 12:23 Drug: Aspirin 81 mg Route: PO; ph 13:18 Follow up: Response: No adverse reaction ph 12:24 Drug: Rocephin 1 grams Route: IV; Rate: per protocol; Site: right antecubital; ph 13:19 Follow up: Response: No adverse reaction; IV Status: Completed infusion ph Intake: 09:09 PO: 0ml; Total: 0ml. ph 13:19 IV: 1000ml; Total: 1000ml. ph Outcome: 11:11 Decision to Hospitalize by Provider. nain 13:17 Admitted to Tele accompanied by tech, family with patient, via wheelchair, room 410. ph 13:17 Condition: stable 13:17 Patient's length of stay was not longer than 2 hours. 13:20 Patient left the ED. ph Signatures: Dispatcher [employer] EDLeonid Pathak MD MD cha Gonzales, Amanda, gear hobber EKG Tat1 Lore Nye RN RN ph
--- NOTE | 2019-10-10 12:01 | P.HP ---
Certification for Inpatient Patient admitted to: Observation With expected LOS: <2 Midnights Patient will require the following post-hospital care: None Practitioner: I am a practitioner with admitting privileges, knowledge of patient current condition, hospital course, and medical plan of care. Services: Services provided to patient in accordance with Admission requirements found in Title 42 Section 412.3 of the Code of Federal Regulations Patient History Date of Service: 10/10/19 Primary Care Provider: Dr. Giordano; Neurology-Dr. Langley; Cardiology-Dr. Greco Reason for admission: Syncope History of Present Illness: 84-year-old female with history of hypertension, vascular dementia, TIA and hyperlipidemia. Patient presented to the emergency room after she had a syncopal episode at the assisted living facility. She adjust finish with breakfast this morning. She felt uneasy. She fell to the ground witnessed. Syncope lasted a couple of seconds. Patient was brought in to the ER for further evaluation. Patient denied any chest pain, shortness of breath, nausea, vomiting, diarrhea or constipation. No recent illness. Family at bedside. Family reports patient has history of orthostatic hypotension. Patient has had poor oral intake. In the ER patient was evaluated. Blood pressure slightly elevated at 170 1/82. Respirations stable. Heart rate stable. Oxygen saturations 90%. Chest x- ray unremarkable. Facial CT shows no fracture. Some maxillary sinus fluid noted. Head CT unremarkable. Urinalysis unremarkable. Sodium 137, potassium 4.5, BUN of 19, creatinine 0.9 with a GFR 59. Glucose 107. Troponin 0.1. BNP 995. CBC unremarkable. Patient admitted for further evaluation. I saw the patient ER, she was very appropriate. Ecchymosis noted to the facial region primarily to the left side.. Allergies codeine Allergy (Unverified 01/03/17 23:17) Unknown Home medications list reviewed: Yes Home Medications: Acetaminophen [Tylenol Arthritis] 650 mg PO BID 04/24/16 Aspirin [Aspirin EC 81 MG] 81 mg PO DAILY 04/24/16 Calcium Carbonate/Vitamin D3 [Calcium 600-Vit D3 200 Tablet] 1 each PO DAILY Ibuprofen/Diphenhydramine HCl [Advil Pm Liqui-Gels] 1 each PO PRN PRN 04/24/16 Vit C/E/Zn/Coppr/Lutein/Zeaxan [Preservision Areds 2 Softgel] 1 each PO DAILY lisinopriL [Prinivil*] 10 mg PO [id number] 04/24/16 - Past Medical/Surgical History Diabetic: No -: Hypertension -: Orthostatic hypotension -: Vascular dementia -: History TIA -: Hyperlipidemia -: Hysterectomy -: Bladder surgery Psychosocial/ Personal History: Patient lives at [facility]. - Family History Family History: Reviewed- Non-Contributory - Social History Smoking Status: Never smoker Alcohol use: Yes CD- Drugs: No Caffeine use: Yes Place of Residence: Assisted Review of Systems General: Weakness, As per HPI Eyes: Unremarkable ENT: Unremarkable Respiratory: Unremarkable Cardiovascular: Light Headedness, As per HPI Gastrointestinal: Unremarkable Genitourinary: Unremarkable Musculoskeletal: Unremarkable Integumentary: Unremarkable Neurological: As per HPI Lymphatics: Unremarkable Physical Examination - Physical Exam General: Alert, In no apparent distress, Oriented x3, Cooperative HEENT: Other (Ecchymosis noted to the left side with bruising throughout different stages. Swelling noted to the left side.) Neck: Supple Respiratory: Clear to auscultation bilaterally, Normal air movement Cardiovascular: Normal pulses, Regular rate/rhythm Gastrointestinal: Normal bowel sounds, Soft and benign, Non-distended, No tenderness, No masses, No rebound, No guarding Musculoskeletal: No erythema, No tenderness, No warmth Integumentary: Other (As above) Neurological: Normal speech, Normal strength at 5/5 x4 extr, Normal tone, Normal affect, Dementia (Mild dementia) - Studies Laboratory Data (last 24 hrs) 10/10/19 10:05: PT 11.5, INR 0.97 10/10/19 10:05: WBC 7.6, Hgb 12.9, Hct 38.2, Plt Count 228 10/10/19 10:05: Sodium 137, Potassium 4.5, BUN 19 H, Creatinine 0.91, Glucose 107 H, Magnesium 2.2, Total Bilirubin 0.7, AST 24, ALT 19, Alkaline Phosphatase 67 Assessment and Plan - Plan Impression: Syncope with fall likely orthostatic hypotension with mild dehydration Ecchymosis to the left facial region without fracture Hypertension with history of orthostatics hypotension Mild dehydration Vascular dementia with history of TIA Hyperlipidemia Plan: Syncope with fall likely orthostatic hypotension with mild dehydration: Patient will be admitted for further evaluation and observation. Will monitor cardiac enzymes and telemetry. Will obtain echocardiogram, carotid Doppler and stroke protocol MRI. Upon my examination, patient was lightheaded when going to sitting and standing. Patient is had poor oral intake lately. Will start IV fluids. Will give fluid bolus. Will have physical therapy occupational therapy evaluate patient. Will discuss with her neurologist. Possible discharge later today if workup unremarkable. Ecchymosis to the left facial region without fracture: Will provide medication for pain No evidence of fracture. Will monitor closely. Hypertension with history of orthostatic hypotension: Patient takes lisinopril. Will check orthostatics after hydration. May need to hold blood pressure medication if systolic less than 150. Mild dehydration: Will provide IV fluid bolus. Will continue with IV fluids. Vascular dementia with history of TIA: Will continue aspirin, lisinopril, Lovenox-DVT prophylaxis, and Lipitor. Continue workup above. Will discuss with Neurology. Hyperlipidemia: Patient previously on Lipitor but this was recently taken off. Will restart Lipitor and obtain lipid panel. Discharge Plan: Home Plan to discharge in: 24 Hours - Advance Directives Does patient have a Living Will: No Does patient have a Durable POA for Healthcare: No - Code Status/Comfort Care Code Status Assessed: Yes (Advanced care preference addressed. Patient is do not resuscitate.) Time Spent Managing Pts Care (In Minutes): 55
[2019-10-10] MEDS ORDERED: CEFTRIAXONE/SWI 1gm 1 GM/10 ML SYR ONE (12:11)
[2019-10-10] MEDS ORDERED: ASPIRIN 81 MG CHEWABLE TABLET ONE (12:11)
--- NOTE | 2019-10-10 12:29 | RAD REPORT ---
EXAM DESCRIPTION: - CP - 10/10/2019 12:18 pm CLINICAL HISTORY: DIZZINESS Fall, syncope, headache, drowsiness COMPARISON: Head C Spine Mpr Wo Con dated 10/10/2019 TECHNIQUE: Real-time sonographic evaluation of both carotid systems was performed. Doppler interroga tion was performed with waveform tracing bilaterally. FINDINGS: Normal high resistance waveforms are noted in both external carotid arteries. The common c arotid arteries and internal carotid arteries show normal low resistance waveforms. Moderate hard plaquing is seen in both carotid bulbs, more severe on the left. Mild elevated peak sys tolic velocity proximal left ICA is present 146 cm/second. This would be compatible with a 50-70% tyler nosis based on NASCET criteria. No hemodynamically significant right-sided stenosis. Antegrade flow seen in both vertebral arteries. IMPRESSION: Hard plaquing is present in both carotid bulbs, more severe on the left. 50-70% stenosis based on NASCET criteria suspected proximal left ICA.
[2019-10-10] MEDS ORDERED: ONDANSETRON 4 MG/2 ML VIAL IV PRN (12:50)
[2019-10-10] MEDS ORDERED: NA CHLORIDE 0.9% 500 ML IV ONE (12:50)
[2019-10-10] MEDS ORDERED: NA CHLORIDE 0.9% 1,000 ML IV SCH ×2 (12:50→19:00)
[2019-10-10 13:39] VITALS: BMI 19.4
[2019-10-10 13:46] LABS: Albumin 3.5 g/dL (3.4-5.0); Bilirubin Direct 0.2 mg/dL (0-0.2); Bilirubin Total 0.7 mg/dL (0.2-1.0); Protein, Total 6.9 g/dL (6.4-8.2)
[2019-10-10 13:52] LABS: CKMB Creatine Kinase MB 2.2 ng/mL (0.3-3.6); Troponin I 0.12 ng/mL (0.0-0.045)
--- NOTE | 2019-10-10 15:33 | EKG ---
Test Date: 2019-10-10 Test Time: 09:24:01 Triage Clinician: RASHAWN MEASUREMENT RESULTS: Intervals: Rate: 70 CO: 198 QRSD: 80 QT: 408 QTc: 440 [place]: P: 72 CO: 198 QRS: -29 T: 91 INTERPRETIVE STATEMENTS: Normal sinus rhythm Anteroseptal infarct, age undetermined T wave abnormality, consider lateral ischemia Abnormal ECG Compared to ECG 03/21/2018 18:46:22 T-wave abnormality now present Possible ischemia now present Atrial premature complex(es) no longer present Left-axis deviation no longer present Myocardial infarct finding still present Electronically Signed On 10-10-19 15:32:24 RIVETING MACHINE OPERATOR by Alvarez Haq
--- NOTE | 2019-10-10 16:14 | RAD REPORT ---
EXAM DESCRIPTION: MRI - MRA Head Wo Cont - 10/10/2019 4:04 pm CLINICAL HISTORY: Fall, head and neck injury, stroke-like symptoms, syncope, vascular dementia COMPARISON: None. TECHNIQUE: Axial and coronal 3D [id number] image acquisition was performed. 3D rotational images were generated with source and reconstruction images reviewed. Horizontal and vertical axis rotation al views generated using MIP protocol. FINDINGS: No aneurysm or vascular malformation identified. Distal vertebral arteries, basilar artery and distal internal carotid arteries show no significant disease. No dissection findings. Patient giron s mild to moderate atherosclerotic changes in the far peripheral branches of the middle and posterior cerebral arteries. No major branch occlusion seen. IMPRESSION: Mild to moderate atherosclerotic changes in the far peripheral branches of the middle an d posterior cerebral arteries.
--- NOTE | 2019-10-10 16:21 | RAD REPORT ---
EXAM DESCRIPTION: MRI - Brain Wo Cont - 10/10/2019 4:04 pm CLINICAL HISTORY: SYNCOPE,VASCULAR DEMENTIA COMPARISON: MRA Head Wo Cont dated 10/10/2019; Facial Bones W/ Mpr dated 10/10/2019 TECHNIQUE: Sagittal T1-weighted images were obtained along with axial PD, heavily T2-weighted and T2 -FLAIR images. Axial DWI and ADC mapping sequences were also obtained along with coronal heavily T2-w eighted images. FINDINGS: No intracranial hemorrhage, mass or acute infarction. There is no edema or shift of midlin e structures. Prominent atrophy changes are present. Ventricles are in proportion to the volume loss. Advanced chronic ischemic changes are present throughout the cerebral white matter and extensively i nto each basal ganglia and thalamus. Moderate braeden chronic ischemic change present. Cerebellum volume loss is more mild in degree. Burris-matter/white matter junction is preserved. Signal voids are seen a s a normal finding in the major intracranial vessels. Basilar tortuosity noted. No globe or orbital content acute finding. Mastoid air cells are clear. Air-fluid level present in the left maxillary sinus. IMPRESSION: No acute infarction change. No acute intracranial process. Moderate severity atrophy with advanced chronic ischemic change as detailed. Left maxillary sinusitis.
[2019-10-10] MEDS ORDERED: ALPRAZOLAM 0.25 MG TABLET PO PRN (17:49)
[2019-10-10] MEDS ORDERED: DONEPEZIL HCL 5 MG TAB PO SCH (21:00)
[2019-10-10] MEDS ORDERED: ATORVASTATIN 40 MG TAB PO SCH (21:00)
[2019-10-10] MEDS: FLUTICASONE 50MCG NASAL SPRAY NAS SCH (21:27)
[2019-10-10] MEDS: DOCOSAHEXANOIC AC/EPA 1000 MG PO SCH (21:28)
[2019-10-10] MEDS: ACETAMINOPHEN 500 MG TAB PO PRN (21:35)
[2019-10-11] MEDS: ACETAMINOPHEN 500 MG TAB PO PRN (02:00)
[2019-10-11 03:30] VITALS: O2SAT 97
[2019-10-11 04:29] LABS: Absolute Lymphocytes (CBC) 1.7 K/uL (0.7-4.9); Basophils % 0.6 % (0-1.3); Hematocrit 34.3 % (36.0-45.0); Lymphocytes % 20.3 % (15.3-44.8); MPV 8.5 fL (7.6-11.3); RBC Red Blood Cell Count 3.49 M/uL (3.86-4.86)
[2019-10-11 04:36] LABS: Magnesium 2.1 mg/dL (1.8-2.4)
[2019-10-11 08:38] VITALS: BP 147/70; TEMP 97.7
[2019-10-11] MEDS: FLUTICASONE 50MCG NASAL SPRAY NAS SCH (08:44)
[2019-10-11] MEDS: DOCOSAHEXANOIC AC/EPA 1000 MG PO SCH (08:45)
[2019-10-11] MEDS ORDERED: ENOXAPARIN 40 MG/0.4 ML SQ SCH (09:00)
[2019-10-11] MEDS ORDERED: ASPIRIN EC 81 MG TAB PO SCH (09:00)
[2019-10-11] MEDS ORDERED: lisinopriL 10 MG TAB PO SCH (09:00)
[2019-10-11] MEDS ORDERED: FOLIC ACID 1 MG TABLET PO SCH (09:00)
[2019-10-11] MEDS ORDERED: MEMANTINE HCL 10 MG TABLET PO SCH (09:00)
[2019-10-11] MEDS ORDERED: THIAMINE HCL 100 MG TABLET PO SCH (09:00)
--- NOTE | 2019-10-11 11:11 | P.DS ---
Admission Date: 10/10/19 Discharge Date: 10/11/19 Primary Care Provider: Dr. Giordano; Neurology-Dr. Langley; Cardiology-Dr. Greco Disposition: DC HOME/HOME HEALTH CARE Discharge Condition: GOOD Reason for Admission: Syncope Consultations: Neurology-Dr. Langley Procedures: CT Head: FINDINGS: No acute facial bone fracture is seen.The mandible is intact. The globes and orbital contents are grossly unremarkable.Fluid is present in the left maxillary antrum. The paranasal sinuses and mastoids are otherwise clear. IMPRESSION: Negative for facial bone fracture. Left maxillary sinus fluid. MRI Brain: FINDINGS: No intracranial hemorrhage, mass or acute infarction. There is no edema or shift of midline structures. Prominent atrophy changes are present. Ventricles are in proportion to the volume loss. Advanced chronic ischemic changes are present throughout the cerebral white matter and extensively into each basal ganglia and thalamus. Moderate braeden chronic ischemic change present. Cerebellum volume loss is more mild in degree. Burris-matter/white matter junction is preserved. Signal voids are seen as a normal finding in the major intracranial vessels. Basilar tortuosity noted. No globe or orbital content acute finding. Mastoid air cells are clear. Air-fluid level present in the left maxillary sinus. IMPRESSION: No acute infarction change. No acute intracranial process. Moderate severity atrophy with advanced chronic ischemic change as detailed. Left maxillary sinusitis. Carotid Doppler: FINDINGS: Normal high resistance waveforms are noted in both external carotid arteries. The common carotid arteries and internal carotid arteries show normal low resistance waveforms. Moderate hard plaquing is seen in both carotid bulbs, more severe on the left. Mild elevated peak systolic velocity proximal left ICA is present 146 cm/ second. This would be compatible with a 50-70% stenosis based on NASCET criteria. No hemodynamically significant right-sided stenosis. Antegrade flow seen in both vertebral arteries. IMPRESSION: Hard plaquing is present in both carotid bulbs, more severe on the left. 50-70% stenosis based on NASCET criteria suspected proximal left ICA. Xray: FINDINGS: No fracture or dislocation is seen. Bones are osteoporotic Xray Forearm: CLINICAL HISTORY: Left forearm pain status post injury FINDINGS: No fracture is seen. Bones are osteoporotic Medical Problem List: Syncope with fall likely orthostatic hypotension with mild dehydration Ecchymosis to the left facial region without fracture Left wrist sprain after fall Hypertension with history of orthostatic hypotension Mild dehydration Vascular dementia with history of TIA Hyperlipidemia Carotid arterial disease showing left ICA stenosis Brief History of Present Illness: 84-year-old female with history of hypertension, vascular dementia, TIA and hyperlipidemia. Patient presented to the emergency room after she had a syncopal episode at the assisted living facility. She adjust finish with breakfast this morning. She felt uneasy. She fell to the ground witnessed. Syncope lasted a couple of seconds. Patient was brought in to the ER for further evaluation. Patient denied any chest pain, shortness of breath, nausea, vomiting, diarrhea or constipation. No recent illness. Family at bedside. Family reports patient has history of orthostatic hypotension. Patient has had poor oral intake. In the ER patient was evaluated. Blood pressure slightly elevated at 170 1/82. Respirations stable. Heart rate stable. Oxygen saturations 90%. Chest x- ray unremarkable. Facial CT shows no fracture. Some maxillary sinus fluid noted. Head CT unremarkable. Urinalysis unremarkable. Sodium 137, potassium 4.5, BUN of 19, creatinine 0.9 with a GFR 59. Glucose 107. Troponin 0.1. BNP 995. CBC unremarkable. Patient admitted for further evaluation. I saw the patient ER, she was very appropriate. Ecchymosis noted to the facial region primarily to the left side.. Hospital Course: Patient presented with syncope. She had a fall which led to injury to the left facial region and left arm. This was further evaluated. Orthostatic hypotension was suspected. Large ecchymotic area to the left face noted. CT scan did not show any fracture to the face. X-rays to the hand showed no fracture as well. MRI brain showed no acute stroke. Carotid Doppler shows stenosis to the left ICA. 50-70% stenosis noted obtained. Patient appeared mildly dehydrated. Orthostatics changes were noted during the course of her stay. Patient now all better hydrated. Case discussed with her neurologist. No need for changes in her medications except additional Lipitor. Patient will return back to the assisted living facility. Patient may continue with physical therapy as an outpatient. Will provide a wrist splint to help with her likely left sprained wrist. Fall precautions in place. Will arrange for home health and physical therapy at discharge. At discharge patient may continue with Lipitor 40 mg daily, aspirin 81 mg daily and lisinopril 10 mg daily. Patient with hypertension. Orthostatic hypotension noted. Patient was given IV fluids. This resolved. Patient takes lisinopril 10 mg daily. Recommend to monitor blood pressures at least once daily. May need to hold lisinopril if blood pressure less than 140. Maintain blood pressure around 120-140 systolic. Will agitated on orthostatic hypertension. If blood pressure remains above 140/ 90 consistently then she will require medication. Patient takes lisinopril 10 mg daily. Patient with vascular dementia with history of TIA. At discharge patient may continue with aspirin 81 mg daily, Lipitor 40 mg daily, and lisinopril. Patient may follow up with neurology as directed. No evidence of acute stroke at this time. At discharge patient to continue with Aricept 5 mg daily and Namenda 5 mg daily. Patient may also continue with folic acid 1 mg daily. Patient with carotid arterial disease. As mentioned above patient has stenosis to the left ICA. Recommend to continue with lipid for 40 mg daily. Patient will also continue with aspirin 81 mg daily. Vital Signs/Physical Exam: Temp Pulse Resp BP Pulse Ox 97.7 F 79 17 147/70 H 96 10/11/19 08:00 10/11/19 08:45 10/11/19 08:00 10/11/19 08:45 10/11/19 08:00 General: Alert, In no apparent distress HEENT: Other (Ecchymoses to the left facial region) Respiratory: Clear to auscultation bilaterally, Normal air movement Cardiovascular: Normal pulses, Regular rate/rhythm Gastrointestinal: Normal bowel sounds, Soft and benign, Non-distended Musculoskeletal: Other (Mild pain to the left wrist.) Neurological: Normal speech, Normal strength at 5/5 x4 extr, Normal tone, Dementia Laboratory Data at Discharge: WBC 8.1 K/uL (4.3-10.9) 10/11/19 03:40 Hgb 11.9 g/dL (12.0-15.0) L 10/11/19 03:40 Hct 34.3 % (36.0-45.0) L 10/11/19 03:40 Plt Count 214 K/uL (152-406) 10/11/19 03:40 PT 11.5 SECONDS (9.5-12.5) 10/10/19 10:05 INR 0.97 10/10/19 10:05 Sodium 136 mmol/L (136-145) 10/11/19 03:40 Potassium 4.0 mmol/L (3.5-5.1) 10/11/19 03:40 BUN 15 mg/dL (7-18) 10/11/19 03:40 Creatinine 0.73 mg/dL (0.55-1.3) 10/11/19 03:40 Glucose 100 mg/dL (74-106) 10/11/19 03:40 Magnesium 2.1 mg/dL (1.8-2.4) 10/11/19 03:40 Total Bilirubin 0.7 mg/dL (0.2-1.0) 10/10/19 13:22 AST 22 U/L (15-37) 10/10/19 13:22 ALT 19 U/L (12-78) 10/10/19 13:22 Alkaline Phosphatase 65 U/L (45-117) 10/10/19 13:22 Troponin I 0.12 ng/mL (0.0-0.045) H 10/10/19 13:22 Home Medications: Acetaminophen [Tylenol Arthritis] 650 mg PO QID 04/24/16 Aspirin [Aspirin EC 81 MG] 81 mg PO DAILY 04/24/16 Vit C/E/Zn/Coppr/Lutein/Zeaxan [Preservision Areds 2 Softgel] 1 each PO DAILY lisinopriL [Prinivil*] 10 mg PO [id number] 04/24/16 Donepezil [Aricept*] 1 tab PO DAILY 10/10/19 Memantine HCl 1 tab PO DAILY 10/10/19 Atorvastatin Calcium [Lipitor] 40 mg PO BEDTIME #30 tab 10/11/19 Folic Acid 1 mg PO DAILY #90 tablet 10/11/19 New Medications: Atorvastatin Calcium [Lipitor] 40 mg PO BEDTIME #30 tab Folic Acid 1 mg PO DAILY #90 tablet Patient Discharge Instructions: 1. Recommend to follow up with PCP in 1 week to post hospitalization. 2. Patient presented with syncope. She had a fall which led to injury to the left facial region and left arm. This was further evaluated. Orthostatic hypotension was suspected. Large ecchymotic area to the left face noted. CT scan did not show any fracture to the face. X-rays to the hand showed no fracture as well. MRI brain showed no acute stroke. Carotid Doppler shows stenosis to the left ICA. 50-70% stenosis noted obtained. Patient appeared mildly dehydrated. Orthostatics changes were noted during the course of her stay. Patient now all better hydrated. Case discussed with her neurologist. No need for changes in her medications except additional Lipitor. Patient will return back to the assisted living facility. Patient may continue with physical therapy as an outpatient. Will provide a wrist splint to help with her likely left sprained wrist. Fall precautions in place. Will arrange for home health and physical therapy at discharge. At discharge patient may continue with Lipitor 40 mg daily, aspirin 81 mg daily and lisinopril 10 mg daily. 3. Patient with hypertension. Orthostatic hypotension noted. Patient was given IV fluids. This resolved. Patient takes lisinopril 10 mg daily. Recommend to monitor blood pressures at least once daily. May need to hold lisinopril if blood pressure less than 140. Maintain blood pressure around 120-140 systolic. Will agitated on orthostatic hypertension. If blood pressure remains above 140/90 consistently then she will require medication. Patient takes lisinopril 10 mg daily. 4. Patient with vascular dementia with history of TIA. At discharge patient may continue with aspirin 81 mg daily, Lipitor 40 mg daily, and lisinopril. Patient may follow up with neurology as directed. No evidence of acute stroke at this time. At discharge patient to continue with Aricept 5 mg daily and Namenda 5 mg daily. Patient may also continue with folic acid 1 mg daily. 5. Patient with carotid arterial disease. As mentioned above patient has stenosis to the left ICA. Recommend to continue with lipid for 40 mg daily. Patient will also continue with aspirin 81 mg daily. Diet: AHA Activity: Fall precautions Time spent managing pt's care (in minutes): 55
--- NOTE | 2019-10-11 11:26 | RAD REPORT ---
EXAM DESCRIPTION: RAD - Forearm Left - 10/11/2019 11:07 am CLINICAL HISTORY: Left forearm pain status post injury FINDINGS: No fracture is seen. Bones are osteoporotic
--- NOTE | 2019-10-11 11:30 | RAD REPORT ---
EXAM DESCRIPTION: RAD -Hand Left 3 View - 10/11/2019 11:10 am CLINICAL HISTORY: Left hand pain status post injury FINDINGS: No fracture or dislocation is seen. Bones are osteoporotic
--- NOTE | 2019-10-11 13:03 | ECHO ---
HEIGHT: 5 ft 7 in WEIGHT: 124 lb 0 oz DATE OF STUDY: 10/11/[address]: Leonid Esqueda MD 2-DIMENSIONAL: YES M.MODE: YES DOPPLER: YES COLOR FLOW: YES TDS: YES PORTABLE: DEFINITY: BUBBLE STUDY: DIAGNOSIS: CHEST PAIN CARDIAC HISTORY: CATHERIZATION: NO SURGERY: NO PROSTHETIC VALVE: NO PACEMAKER: NO MEASUREMENTS (cm) DIASTOLIC (NORMALS) SYSTOLIC (NORMALS) IVSd 1.1 (0.6-1.2) LA Diam 2.7 (1.9-4.0) LVEF 65-69% LVIDd 2.9 (3.5-5.7) LVIDs 2.2 (2.0-3.5) %FS % LVPWd 1.3 (0.6-1.2) Ao Diam 2.1 (2.0-3.7) 2 DIMENSIONAL ASSESSMENT: RIGHT ATRIUM: NORMAL LEFT ATRIUM: NORMAL RIGHT VENTRICLE: NORMAL LEFT VENTRICLE: NORMAL TRICUSPID VALVE: NORMAL MITRAL VALVE: NORMAL PULMONIC VALVE: NORMAL AORTIC VALVE: NORMAL PERICARDIAL EFFUSION: NONE AORTIC ROOT: NORMAL LEFT VENTRICULAR WALL MOTION: NORMAL DOPPLER/COLOR FLOW: NORMAL COMMENTS: NORMAL 2-DIMENSIONAL ECHOCARDIOGRAM WITH DOPPLER. NO WALL MOTION ABNORMALITY. NO EFFUSION. TECHNOLOGIST: BRIANNA WILLIAM
== END 2019-10-11 14:35 | disposition home health service (06) ==
LOC: ER 08:28 → ERHOLD 11:45 → 4TH 13:11
PROVIDERS: ADMIT Family Medicine; ATTEND Family Medicine
PROC: 0JQ10ZZ Repair Face Subcutaneous Tissue and Fascia, Open Approach (ICD-10-PCS; principal; 2019-10-10)
DX: I95.1 Orthostatic hypotension (principal); E86.0 Dehydration; S00.83XA Contusion of other part of head, initial encounter; I65.22 Occlusion and stenosis of left carotid artery; S63.502A Unspecified sprain of left wrist, initial encounter; I10 Essential (primary) hypertension; F01.50 Vascular dementia, unspecified severity, without behavioral disturbance, psychotic disturbance, mood disturbance, and anxiety; E78.5 Hyperlipidemia, unspecified; W19.XXXA Unspecified fall, initial encounter; Z86.73 Personal history of transient ischemic attack (TIA), and cerebral infarction without residual deficits
CPT/HCPCS: 96365; 93005; 93306; 87088; 85025 ×2; 87086; 80048 ×2; 36415; 83735 ×2; 82550; 85610; 80076 ×2; 81003; 84484 ×2; 82553; 83880; 70450; 72125; 70486; 76377; 71045; 73130; 73090; 93880; 70551; 70544; 97112; 97116; 97161; 97530; 96375; 99285; 96366; 12011; J1650; J3010; J0690; J0696; J7030 ×2; J2405; G0378 ×3

== ENCOUNTER 2020-04-10 08:53 | Emergency (ER) | payer OTHER ==
--- OUTSIDE RECORDS SUMMARY | 2020-04-10 09:04 | XMS REPORT | Continuity of Care Document ---
:1935 Author Organization [facility] t Address [address] [place] [address] Care Team Providers Name Role Phone DALE SCOTT Attending Clinician Unavailable DALE SCOTT Admitting Clinician Unavailable Problems Condition Condition Condition Status Onset Resolution Last Treating Co mments Source Name Details Category Date Date Treatment Clinician Date Vascular Vascular Disease [facility] with with 00:[facility]: Medical behavior behavior 00 Center disturbanc disturbanc e e Apraxia Apraxia Disease Active [facility] - 00:00: Medical 00 [place] Disorienta Disorienta Disease Active [facility] tion tion 5-28 [facility] - 00:00: Medical 00 Center TIA TIA Disease Active [facility] (transient (transient 01-04 Lisa kes - ischemic ischemic 00:00: Medica l attack) attack) 00 Center Dementia Dementia Problem [facility] without [facility] - behavioral behavioral Me moria disturbanc disturbanc l e, e, Outpati unspecifie unspecifie en t d dementia d dementia Cl inics type type Other Other Problem Active [facility] chronic chronic [facility] - pain pain [facility] Pain in Pain in Problem Active [facility] left knee left knee [facility] - [facility] Neck pain Neck pain Problem Active [facility] Scoliosis Scoliosis Problem Active [facility] Osteopenia Osteopenia Problem [facility] Essential Essential Diagnosis Active [facility] hypertensi hypertensi Lisa kes - on on [facility]ics Memory Memory Problem Active [facility] loss loss [facility]ics Hyperchole Hyperchole Problem Active [facility] sterolemia sterolemia Lisa kes - Memoria l [facility] ent Clinics Low back Low back Problem Active [facility] pain pain [facility] Nausea Nausea Problem Active [facility] kes - [facility]oria [facility] Decreased Decreased Problem Active [facility] appetite appetite [facility] Elevated Elevated Problem Active [facility] brain brain [facility] - natriureti natriureti Me moria c peptide c peptide l (BNP) (BNP) [facility] Shortness Shortness Problem Active [facility] of breath of breath Luke s - Memoria l [facility] ent [facility] Status Status Problem Active [facility] post fall post fall ke s - Memoria [facility] Acute pain Acute pain Problem Active [facility] of left of left [facility] - shoulder shoulder [facility] Fluctuatin Fluctuatin Problem Active [facility] g blood g blood [facility] - pressure pressure [facility] Hyperglyce Hyperglyce Problem Active [facility] pancho pancho [facility] ent [facility] Polyarthra Polyarthra Diagnosis Active [facility] lgia lgia [facility] Allergies, Adverse Reactions, Alerts This patient has no known allergies or adverse reactions. Social History Social Habit Start Date Stop Date Quantity Comments Source Sex Assigned At [facility] Smoking Status Start Date Stop Date Source Never smoker [facility] Medications Ordered Filled Start Stop Current Ordering Indication Dosage Frequency Signature Comments Components Source Medication Medication Date Date Medication? Clinician (SIG) Name Name Gorge Pennington 2019- No Miriam [address] [facility] 2-19 03-21 [place] affected [facility] - 00:00: 00:00 area(s); Memoria 00 :00 remove l after 12 Outpati hours ent Clinics Lisinopril Lisinopril Yes Miriam [address] [facility] 5-21 [place] [facility] Atorvastati Atorvastati Yes Miriam [address] [facility] n Calcium n Calcium 5-21 [place] in evening [facility] - 00:00: [facility] melatonin 5 2016- Yes 5mg QD Take [address] [facility] [facility] mg Tab 5-29 tablet (5 [facility] - tablet 00:00: mg total) Medica l 00 by mouth Center nightly. acetaminoph Yes headache 500mg Take [address] [facility] en 5-28 mg by [facility] - (TYLENOL) 02:10: mouth Medical 500 MG 11 every 4 Center tablet (four) hours as needed for Pain. cetirizine Yes 10mg Take [address] (ZYRTEC) 10 -28 by mouth. Shanita es - MG chewable 02:10: Medica l tablet 11 [place] omega-3 Yes 1{tbl} QD Take [address] [facility] fatty 5-28 tablet by [facility] - acids-vitam 02:10: mouth Medic al in E 1,000 11 daily. Center mg Cap multivitami Yes 1{tbl} Take [address] n per - tablet by [facility] - tablet 02:10: mouth. Medical 11 [place] dimenhyDRIN Yes 50mg Take [address] [facility] ATE -28 by mouth. [facility] - (DRAMAMINE) 02:10: Medica l 50 MG 10 Center tablet Aricept Aricept Yes Miriam as [facility] directed [facility] Fish Oil Fish Oil Yes Miriam [address] [place] [facility]ics Namenda Namenda Yes Miriam As [facility] directed [facility]ics PreserVisio PreserVisio Yes Miriam not [facility] n AREDS 2 n AREDS 2 [place] defined [facility] Ciprofloxac Ciprofloxac Yes Miriam [address] [facility] in HCl in HCl [place] [facility] Procedures This patient has no known procedures. Encounters Start End Encounter Admission Attending Care Care Encounter Source Date/Time Date/Time Type Type Clinicians Facility Department ID 2018-09-28 2018-09-28 Outpatient Jeremias Galicia [id number] [facility] 10[facility]00[facility]00 10:00:00 [facility] Family Medicine l Medicine Outpati ent Clinics 2018-04-20 2018-04-20 Outpatient Jeremias Galicia [id number] 12:00:00 12:00:00 t [facility] 2018-04-08 2018-04-08 Outpatient Jeremias [place] [id number] [address] 09:47:00 09:47:00 t [facility]gent [facility] ent Clinics 2018-03-30 2018-03-30 Outpatient Jeremias [place] [id number] [facility] 11:10:00 11:10:00 t [facility] 2018-03-25 2018-03-25 [place] [id number] [facility] 00:07:00 00:07:00 t [facility] 2018-03-24 2018-03-24 Outpatient [facility] [id number] [facility] 16:00:00 16:00:00 t [facility] 2017-12-28 2017-12-28 [facility] [id number] 19:49:00 19:49:00 t [facility] 2017-12-28 2017-12-28 Outpatient Jeremias [place] [id number] 10:00:00 10:00:00 t [facility] ent Clinics Results Test Description Test Time Test Comments Results Result Comments Source TROPONIN I 2017-01-04 09:28:00 Test Item Value Reference Range Interpretation Comme nts TROPONIN I (CEZARAKER) (test code = 397) 0.02 ng/mL 0.00-0.03 Effective 06/27/2014: Reference Range [...] acidosis, acute neurological disease, and persistent tachyarrhythmia.HEMOGLOBIN [id number] 07:32:00 Test Item Value Reference Range Interpretation Comments HEMOGLOBIN A1C (BEAKER) (test code = 5.1 % 4.3-6.1 368) FastingVITAMIN [id number] 05:27:00 Test Item Value Reference Range Interpretation Comments VITAMIN B12 (BEAKER) (test code = 374 pg/mL 213-816 774) TSH/FREE T4 IF [id number] 05:27:00 Test Item Value Reference Range Interpretation Comments THYROID STIMULATING HORMONE 1.01 uIU/mL 0.35-4.94 (BEAKER) (test code = 772) CREATINE KINASE (CK), TOTAL AND [id number] 05:10:00 Test Item Value Reference Range Interpretation Comments CREATINE KINASE TOTAL (BEAKER) 80 U/L 29-200 (test code = 380) CREATINE KINASE-MB (BEAKER) (test 2.0 ng/mL 0.0-6.6 code = 750) CREATINE KINASE-MB INDEX (AKER) 2.5 % (test code = 395) Effective 06/27/2014: CK-MB Reference Range ChangeNew: 0.0-6.6 Previous: 0.0-4.9CK-MB Reference Range:<6.7 Normal6.7-10.0 Borderline>10.0 AbnormalFastingFastingTROPONIN [id number] 05:10:00 Test Item Value Reference Range Interpretation Comments TROPONIN I (BEAKER) (test code = 0.02 ng/mL 0.00-0.03 397) Effective 06/27/2014: Reference Range ChangeNew: 0.00-0.03 Previous [...] acidosis, acute neurological disease, and persistent tachyarrhythmia.FastingLIPID [id number] 05:03:00 Test Item Value Reference Range Interpretation Comments TRIGLYCERIDES (BEAKER) 102 mg/dL Speci men slightly (test code = 540) hemolyzed CHOLESTEROL (BEAKER) 197 mg/dL Specime n slightly (test code = 631) hemolyzed HDL CHOLESTEROL (BEAKER) 55 mg/dL (test code = 976) LDL CHOLESTEROL 122 mg/dL CALCULATED (BEAKER) (test code = 633) Triglyceride Reference Range: Low Risk <150 Borderline 150-199 High Risk 200-499 Very High Risk >=500Cholesterol Reference Range: Low Risk <200 Borderline 200-239 High Risk >240HDL Cholesterol Reference Range: Low Risk >=60 High Risk <40LDL Cholesterol Reference Range: Optimal <100 Near Optimal 100-129 Borderline 130-159 High 160-189 Very High >=190 Fasting
--- OUTSIDE RECORDS SUMMARY | 2020-04-10 09:04 | XMS REPORT | Clinical Summary ---
:1935 Author Organization [facility] Address [address] [place] [address] Care Team Providers Name Role Phone Unavailable Primary Care Provider Unavailable Allergies No Known Allergies Medications Medication Sig Dispensed Refills Start Date End Date Status dimenhyDRINATE Take 50 mg by 0 A ctive (DRAMAMINE) 50 MG tablet mouth. acetaminophen (TYLENOL) Take 500 mg by 0 Active 500 MG mouth every 4 tabletIndications: (four) hours as headache needed for Pain. cetirizine (ZYRTEC) 10 Take 10 mg by 0 Active MG chewable tablet mouth. omega-3 fatty Take 1 tablet by 0 Active acids-vitamin E 1,000 mg mouth daily. Cap multivitamin per tablet Take 1 tablet by 0 Active mouth. melatonin 5 mg Tab Take 1 tablet (5 30 each 0 01/05/2017 Active tablet mg total) by mouth nightly. Active Problems Problem Noted Date Vascular dementia with behavior disturbance 01/05/2017 Apraxia 01/04/2017 Disorientation 01/04/2017 TIA (transient ischemic attack) 01/04/2017 Social History Tobacco Use Types Packs/Day Years Used Date Never Smoker Tobacco Cessation: Counseling Given: No Alcohol Use Drinks/Week oz/Week Comments No Sex Assigned at Date Recorded Not on file Job Start Date Occupation Industry Not on file Not on file Not on file Travel History Travel Start Travel End No recent travel history available. Last Filed Vital Signs Not on file Plan of Treatment Not on file Results Not on fileafter 04/10/2019 Insurance Payer Benefit Plan / Subscriber ID Type Phone Address Group [employer] - MEDICARE AETNA MEDICARE HMO xxxxxxxx [address] [employer] CARE POS PPO [place], [place] [id number] Advance Directives For more information, please contact:[place] [id number] [facility] [place], [place] [phone] Code Status Date Activated Date Inactivated Comments Full Code 01/04/2017 1:36 AM 01/05/2017 4:17 PM This code status was determined by: Patient
[2020-04-10 09:24] LABS: Absolute Lymphocytes (CBC) 0.6 K/uL (0.7-4.9); Basophils % 0.4 % (0-1.3); Hematocrit 34.9 % (36.0-45.0); Lymphocytes % 8.4 % (15.3-44.8); RBC Red Blood Cell Count 3.58 M/uL (3.86-4.86)
[2020-04-10 09:45] LABS: BUN Blood Urea Nitrogen 11 mg/dL (7-18); Bicarbonate 25 mmol/L (21-32); Glucose Level 112 mg/dL (74-106); Magnesium 2.1 mg/dL (1.8-2.4); Sodium Level 130 mmol/L (136-145); Troponin (Emerg Dept Use Only) < 0.02 ng/mL (0.0-0.045)
--- NOTE | 2020-04-10 09:56 | RAD REPORT ---
EXAM DESCRIPTION: RAD - Chest Single View - 04/10/2020 9:43 am CLINICAL HISTORY: PALPITATIONS COMPARISON: AP chest October 10, 2019 TECHNIQUE: AP portable chest image was obtained 04/10/2020 9:43 am . FINDINGS: No peripheral mass or consolidation. No significant failure or volume overload. Interstiti al markings are increased from prior imaging. This is in part due to a more shallow inspiratory effor t. A minimal interstitial edema or infiltrate would be possible. No ground-glass opacification to silvino pect COVID-19 pneumonia. Heart and vasculature are normal. No measurable pleural effusion and no pneumothorax. No acute bony abnormality seen. No acute aortic findings suspected. IMPRESSION: Interstitial pattern is increased slightly above the baseline. This is in part due to lo w lung volumes but a minimal interstitial edema or infiltrate should be considered. No focal consolidation seen. No patchy airspace opacification to suspect COVID-19 pneumonia.
[2020-04-10] MEDS ORDERED: NA CHLORIDE 0.9% 500 ML ONE (10:16)
[2020-04-10 10:22] LABS: Urine Blood TRACE (NEG); Urine Glucose NEGATIVE (NEG); Urine Protein 1+ (NEG); Urine Specific Gravity 1.015 (1.005-1.030); Urine pH 6.5 (5.0-7.0)
--- NOTE | 2020-04-10 10:29 | ER ---
Nurse's Notes [facility] Name: Liliane Mejia Age: 84 yrs Sex: Female : 1935 Arrival Date: 04/10/2020 Time: 08:59 Bed 4 Private MD: Diagnosis: Urinary tract infection, site not specified Presentation: 04/10 08:54 Chief complaint: EMS states: Pt. is from [facility], they walked in this morning and the rb1 pt. was restless in the bed, they assumed she was having chest pain and called EMS. Pt. reports that she just doesn't feel right. BP 154/75, 12-Lead shows PVC's. History of Dementia. Coronavirus screen: Client denies travel out of the [place] in the last 14 days. At this time, the client does not indicate any symptoms associated with coronavirus-19. Ebola Screen: Patient denies travel to an Ebola-affected area in the 21 days before illness onset. Initial Sepsis Screen: Does the patient meet any 2 criteria?. Risk Assessment: Do you want to hurt yourself or someone else? Patient reports no desire to harm self or others. Onset of symptoms was April 10, 2020. 08:54 Method Of Arrival: EMS: [place] [id number] 08:54 Acuity: ROSA 3 rb1 08:54 Initial Sepsis Screen: Does the patient meet any 2 criteria? No. Patient's initial rb1 sepsis screen is negative. Does the patient have a suspected source of infection? Yes:. Triage Assessment: 08:54 General: Appears in no apparent distress. comfortable, slender, Behavior is calm, rb1 cooperative, Reports "I just don't feel right". Pain: Complains of pain in toes Quality of pain is described as crampy. Neuro: Level of Consciousness is awake, alert, obeys commands, Oriented to person, place, time, situation. Cardiovascular: Capillary refill < 3 seconds. Cardiovascular: Reports chest pain. Respiratory: Airway is patent Respiratory effort is even, unlabored, Respiratory pattern is regular, symmetrical, Denies cough, shortness of breath. Derm: Skin is pink, warm \\T\\ dry. Historical: - Allergies: 08:54 Codeine; rb1 - Home Meds: 08:54 acetaminophen 500 mg Oral tab [Active]; aspirin 81 mg Oral chew 1 tab once daily rb1 [Active]; atorvastatin 40 mg oral tab 1 tab once daily [Active]; donepezil 5 mg oral tab 1 tab once daily [Active]; folic acid 1 mg Oral tab 1 tab once daily [Active]; lisinopril 10 mg Oral tab 1 tab once daily [Active]; loratadine 10 mg oral tab 1 tab once daily [Active]; melatonin 5 mg Oral tab 1 tab daily [Active]; memantine 5 mg Oral tab 2 times per day [Active]; Ocuvite with Lutein oral oral [Active]; Lovaza 1 gram oral cap 1 caps once daily [Active]; stool softner [Active]; - PMHx: 08:54 Dementia; Hypertension; macular degeneration; scoliosis; shingles; rb1 - Immunization history:: Adult Immunizations up to date. - Social history:: Smoking status: Patient/guardian denies using. - Family history:: not pertinent. - Hospitalizations: : No recent hospitalization is reported. Screenin:15 Abuse screen: Denies threats or abuse. Denies injuries from another. Nutritional bp screening: No deficits noted. Tuberculosis screening: No symptoms or risk factors identified. Fall Risk No fall in past 12 months (0 pts). Secondary diagnosis (15 points) dementia, IV access (20 points). Ambulatory Aid- None/Bed Rest/Nurse Assist (0 pts). Gait- Normal/Bed Rest/Wheelchair (0 pts) Mental Status- Oriented to own ability (0 pts). Total Sheikh Fall Scale indicates Low Risk Score (25-44 pts). Fall prevention measures have been instituted. Side Rails Up X 2 Placed close to Nursing Station Frequent Obs/Assesments occuring Family Present and informed to notify staff if they need to leave bedside As available Patient and Family Educated on Fall Prevention Program and strategies. Assessment: 08:54 Pain: Pain does not radiate. Denies chest pain, reports cramping in her toes Pain began rb1 30 min ago. 10:00 Reassessment: Pt. ambulated to the restroom without difficulty. rb1 10:54 Reassessment: Patient appears in no apparent distress at this time. Patient and/or rb1 family updated on plan of care and expected duration. Pain level reassessed. Patient is alert, oriented x 3, equal unlabored respirations, skin warm/dry/pink. Patient denies pain at this time. Vital Signs: 08:54 BP 109 / 82; Pulse 81; Resp 18; Pulse Ox 96% ; Weight 56.25 kg (R); Height 5 ft. 6 in. rb1 (167.64 cm) (R); 09:05 BP 109 / 82; Pulse 80; Resp 16; Temp 97.8; Pulse Ox 96% on R/A; kj1 10:00 rb1 10:12 BP 142 / 67; Pulse 75; Resp 19; Pulse Ox 97% on R/A; rb1 10:53 BP 132 / 64; Pulse 81; Resp 18; Pulse Ox 98% on R/A; rb1 08:54 Body Mass Index 20.01 (56.25 kg, 167.64 cm) rb1 10:00 Pt. is in the restroom rb1 ED Course: 08:54 Patient maintains SpO2 saturation greater than 95% on room air. rb1 08:54 Arm band placed on right wrist. rb1 08:59 Patient arrived in ED. rn 08:59 Angel Gurrola MD is Attending Physician. rn 09:03 Lenore Hanson, ELTON is Primary Nurse. rb1 09:07 Triage completed. rb1 09:11 EKG done, by ED staff, reviewed by Angel Gurrola MD. kj1 09:14 Inserted saline lock: 22 gauge in right forearm, using aseptic technique. Blood bp collected. 09:15 Patient has correct armband on for positive identification. Bed in low position. Call bp light in reach. Side rails up X2. Adult w/ patient. lathe spotter on. Pulse ox on. NIBP on. 09:43 XRAY Chest (1 view) In Process Unspecified. EDMS 11:07 No provider procedures requiring assistance completed. IV discontinued, intact, rb1 bleeding controlled, No redness/swelling at site. Pressure dressing applied. Administered Medications: 10:05 Drug: NS 0.9% 500 ml Route: IV; Rate: bolus; Site: right forearm; rb1 10:37 Follow up: IV Status: Completed infusion rb1 10:49 Drug: Rocephin 1 grams Route: IV; Rate: calculated rate; Site: right forearm; rb1 11:07 Follow up: Response: No adverse reaction; IV Status: Completed infusion rb1 Outcome: 10:27 Discharge ordered by . rn 11:07 Discharged to home via wheelchair, with family. rb1 11:07 Condition: stable 11:07 Discharge instructions given to patient, Instructed on discharge instructions, follow up and referral plans. medication usage, Demonstrated understanding of instructions, follow-up care, medications, Prescriptions given X 1. 11:08 Patient left the ED. rb1 Signatures: Dispatcher [employer] EDMS Angel Gurrola MD MD rn Barber, Rebecca RN RN rb1 Gerber Rivera RN RN bp Patricia, Tavia [facility]
--- NOTE | 2020-04-10 10:29 | EDPHYS ---
Physician Documentation [facility] Name: Liliane Mejia Age: 84 yrs Sex: Female : 1935 Arrival Date: 04/10/2020 Time: 08:59 Bed 4 Private MD: ED Physician Angel Gurrola HPI: 04/10 09:02 This 84 yrs old Female presents to ER via Unassigned with complaints of rn restlessness, possible chest pain. 09:02 Onset: The symptoms/episode began/occurred just prior to arrival. Severity of symptoms: rn At their worst the symptoms were mild in the emergency department the symptoms have improved. It is unknown whether or not the patient has had similar symptoms in the past. Assisted living facility called 911 for restlessness and presumed chest pain, patient not sure if she had chest pain, does recall feeling restless but cannot elaborate. Denies pain earlier and now. Reports just feels cold and asking for covers. No palpitations or feeling heart racing. No vomiting/diarrhea/abd pain/headache/focal neuro complaint. . Historical: - Allergies: 08:54 Codeine; rb1 - Home Meds: 08:54 acetaminophen 500 mg Oral tab [Active]; aspirin 81 mg Oral chew 1 tab once daily rb1 [Active]; atorvastatin 40 mg oral tab 1 tab once daily [Active]; donepezil 5 mg oral tab 1 tab once daily [Active]; folic acid 1 mg Oral tab 1 tab once daily [Active]; lisinopril 10 mg Oral tab 1 tab once daily [Active]; loratadine 10 mg oral tab 1 tab once daily [Active]; melatonin 5 mg Oral tab 1 tab daily [Active]; memantine 5 mg Oral tab 2 times per day [Active]; Ocuvite with Lutein oral oral [Active]; Lovaza 1 gram oral cap 1 caps once daily [Active]; stool softner [Active]; - PMHx: 08:54 Dementia; Hypertension; macular degeneration; scoliosis; shingles; rb1 - Immunization history:: Adult Immunizations up to date. - Social history:: Smoking status: Patient/guardian denies using. - Family history:: not pertinent. - Hospitalizations: : No recent hospitalization is reported. ROS: 09:02 Constitutional: Negative for fever, chills, and weight loss, Eyes: Negative for injury, rn pain, redness, and discharge, Neck: Negative for injury, pain, and swelling, Cardiovascular: Negative for chest pain, palpitations, and edema, Respiratory: Negative for shortness of breath, cough, wheezing, and pleuritic chest pain, Abdomen/GI: Negative for abdominal pain, nausea, vomiting, diarrhea, and constipation, MS/Extremity: Negative for injury and deformity, Skin: Negative for injury, rash, and discoloration, Neuro: Negative for headache, weakness, numbness, tingling, and seizure. Exam: 09:02 Constitutional: Thin female, no acute distress, alert, sitting upright. Head/Face: rn Normocephalic, atraumatic. ENT: dry MM Neck: Trachea midline, no masses palpated, and no cervical lymphadenopathy. Supple, full range of motion without nuchal rigidity, or vertebral point tenderness. No Meningismus. Cardiovascular: Irregular rhythm, regular rate, equal distal pulses Respiratory: No increased work of breathing, no retractions or nasal flaring. Abdomen/GI: Soft, non-tender Skin: Warm, dry MS/ Extremity: Pulses equal, no cyanosis. Neurovascular intact. Full, normal range of motion. Equal circumference. Neuro: Awake and alert, GCS 15, oriented to person, place, and situation. Cranial nerves II-XII grossly intact. Motor strength 4/5 in all extremities. Sensory grossly intact. Cerebellar exam normal. 09:18 ECG was reviewed by the Attending Physician. rn Vital Signs: 08:54 BP 109 / 82; Pulse 81; Resp 18; Pulse Ox 96% ; Weight 56.25 kg (R); Height 5 ft. 6 in. rb1 (167.64 cm) (R); 09:05 BP 109 / 82; Pulse 80; Resp 16; Temp 97.8; Pulse Ox 96% on R/A; kj1 10:00 rb1 10:12 BP 142 / 67; Pulse 75; Resp 19; Pulse Ox 97% on R/A; rb1 10:53 BP 132 / 64; Pulse 81; Resp 18; Pulse Ox 98% on R/A; rb1 08:54 Body Mass Index 20.01 (56.25 kg, 167.64 cm) rb1 10:00 Pt. is in the restroom rb1 MDM: 08:59 Patient medically screened. rn 10:26 Differential Diagnosis UTI. Data reviewed: vital signs, nurses notes, lab test rn result(s), EKG, radiologic studies, plain films, and as a result, I will discharge patient. Counseling: I had a detailed discussion with the patient and/or guardian regarding: the historical points, exam findings, and any diagnostic results supporting the discharge/admit diagnosis, lab results, radiology results, the need for outpatient follow up, to return to the emergency department if symptoms worsen or persist or if there are any questions or concerns that arise at home. Special discussion: I discussed with the patient/guardian in detail that at this point there is no indication for admission to the hospital. It is understood, however, that if the symptoms persist or worsen the patient needs to return immediately for re-evaluation. ED course: + UTI, no indication for emergent admission, will dc home with abx. PVCs resolved. . 04/10 09:01 Order name: CBC with Diff; Complete Time: 09:48 rn 04/10 09:01 Order name: Basic Metabolic Panel; Complete Time: 09:48 rn 04/10 09:01 Order name: Urine Microscopic Only rn 04/10 09:02 Order name: Magnesium; Complete Time: 09:48 rn 04/10 09:02 Order name: Troponin (emerg Dept Use Only); Complete Time: 09:48 rn 04/10 10:20 Order name: Urine Dipstick--Ancillary (enter results); Complete Time: 10:25 bd 04/10 09:01 Order name: IV Start; Complete Time: 09:32 rn 04/10 09:01 Order name: Urine Dipstick-Ancillary (obtain specimen); Complete Time: 10:14 rn 04/10 09:02 Order name: EKG; Complete Time: 09:02 rn 04/10 09:02 Order name: EKG - Nurse/Tech; Complete Time: 09:32 rn 04/10 09:02 Order name: XRAY Chest (1 view); Complete Time: 10:02 rn 04/10 10:26 Order name: Urine Culture rn EC:18 Rate is 78 beats/min. Rhythm is irregular. [place] interval is normal. QRS interval is rn normal. QT interval is normal. No Q waves. T waves are Normal. No ST changes noted. Clinical impression: NSR w/ Non-specific ST/T Changes and Sinus Rhythm with PVCs. Interpreted by me. Reviewed by me. Administered Medications: 10:05 Drug: NS 0.9% 500 ml Route: IV; Rate: bolus; Site: right forearm; rb1 10:37 Follow up: IV Status: Completed infusion rb1 10:49 Drug: Rocephin 1 grams Route: IV; Rate: calculated rate; Site: right forearm; rb1 11:07 Follow up: Response: No adverse reaction; IV Status: Completed infusion rb1 Disposition: 04/10/20 10:27 Discharged to Home. Impression: Urinary tract infection, site not specified. - Condition is Stable. - Discharge Instructions: Urinary Tract Infection, Adult. - Prescriptions for Macrobid 100 mg Oral Capsule - take 1 capsule by ORAL route every 12 hours for 10 days; 20 capsule. - Medication Reconciliation Form, Thank You Letter, Antibiotic Education, Prescription Opioid Use form. - Follow up: Private Physician; When: As needed; Reason: Recheck today's complaints, Re-evaluation by your physician. - Problem is new. - Symptoms have improved. Signatures: Dispatcher [employer] EDMS Angel Gurrola MD MD rn Barber, Rebecca, RN RN rb1 Corrections: (The following items were deleted from the chart) 11:08 10:27 04/10/2020 10:27 Discharged to Home. Impression: Urinary tract infection, site rb1 not specified. Condition is Stable. Forms are Medication Reconciliation Form, Thank You Letter, Antibiotic Education, Prescription Opioid Use. Follow up: Private Physician; When: As needed; Reason: Recheck today's complaints, Re-evaluation by your physician. Problem is new. Symptoms have improved. rn
[2020-04-10 10:35] LABS: Urine Bacteria >50 /HPF (<20); Urine Culture Reflex Order REFLEXED; Urine Mucus 1+ /HPF (NONE SEEN); Urine RBC <5 /HPF (NONE SEEN)
[2020-04-10] MEDS ORDERED: CEFTRIAXONE/SWI 1gm 1 GM/10 ML SYR ONE (10:58)
--- NOTE | 2020-04-11 12:27 | EKG ---
Test Date: 2020-04-10 Test Time: 09:09:42 Header Set Up Operator: MATTHIAS MEASUREMENT RESULTS: Intervals: Rate: 78 MT: 200 QRSD: 84 QT: 374 QTc: 426 [place]: P: 70 MT: 200 QRS: -24 T: 107 INTERPRETIVE STATEMENTS: Sinus rhythm with frequent premature ventricular complexes Anteroseptal infarct, age undetermined ST & T wave abnormality, consider lateral ischemia Abnormal ECG Compared to ECG 10/10/2019 09:24:01 Ventricular premature complex(es) now present ST (T wave) deviation now present T-wave abnormality no longer present Myocardial infarct finding still present Possible ischemia still present Electronically Signed On 04-11-20 12:23:05 CDT by Ruddy Greco
[2020-04-12 17:05] VITALS: TEMP 97.8
[2020-04-12 17:07] VITALS: BP 132/64; O2SAT 98
== END 2020-04-10 11:08 | disposition home or self-care (01) ==
LOC: ER 08:53
DX: N39.0 Urinary tract infection, site not specified (principal); I10 Essential (primary) hypertension; F03.90 Unspecified dementia, unspecified severity, without behavioral disturbance, psychotic disturbance, mood disturbance, and anxiety; Z88.6 Allergy status to analgesic agent
CPT/HCPCS: 96365; 96361; 93005; 87088; 85025; 87086; 80048; 36415; 83735; 84484; 71045; 99285; J0696; J7040; 81003; 81015; 87077; 87186

== ENCOUNTER 2020-07-05 18:12 | Emergency (ER) | payer OTHER ==
--- OUTSIDE RECORDS SUMMARY | 2020-07-05 18:13 | XMS REPORT | Clinical Summary ---
:1935 Author Organization [facility] Address [address] [place] [address] Care Team Providers Name Role Phone Unavailable Primary Care Provider Unavailable Allergies No Known Allergies Medications Medication Sig Dispensed Refills Start Date End Date Status dimenhyDRINATE Take 50 mg by 0 A ctive (DRAMAMINE) 50 MG tablet mouth. acetaminophen (TYLENOL) Take 500 mg by 0 Active 500 MG mouth every 4 tabletIndications: (four) hours as headache disorder needed for Pain. cetirizine (ZYRTEC) 10 Take [...] Not on file Results Not on fileafter 07/05/2019 Insurance Payer Benefit Plan / Subscriber ID Effective Dates Phone Addre ss Type Group AETNA - AETNA MEDICARE [id number] 2016-Kirsty [phone] [address] MEDICARE MGD HMO POS PPO t 2 [id number] [place] [address] Advance Directives For more information, please contact: [phone] Code Status Date Activated Date Inactivated Comments Full Code 01/04/2017 1:36 AM 01/05/2017 4:17 PM This code status was determined by: Patient
--- OUTSIDE RECORDS SUMMARY | 2020-07-05 18:14 | XMS REPORT | Continuity of Care Document ---
:1935 Author Organization [facility] t Address [address] [place] [address] Care Team Providers Name Role Phone DALE SCOTT Attending Clinician Unavailable DALE SCOTT Admitting Clinician Unavailable Problems Condition Condition Condition Status Onset Resolution Last Treating Co mments Source Name Details Category Date Date Treatment Clinician Date Vascular Vascular Disease [facility] with [facility]: Medical behavior behavior 00 Center disturbanc disturbanc e e Apraxia Apraxia Disease Active [facility] Medical [facility] Center Disorienta Disorienta Disease Active [facility] [...] St loss loss [facility] Hyperchole Hyperchole Problem Active [facility] sterolemia sterolemia Lisa kes - [facility] Low back Low back Problem Active [facility] pain pain [facility] Nausea Nausea Problem Active [facility] Decreased Decreased Problem Active [facility] appetite appetite [facility] Elevated Elevated Problem Active [facility] brain brain [facility] - natriureti natriureti Me moria c peptide c peptide l (BNP) (BNP) [facility] level level ent Clinics Shortness Shortness Problem Active [facility] of breath of breath [facility] - [facility] Status Status Problem Active [facility] post fall post fall ke s - [facility] Acute pain Acute pain Problem Active [facility] left [facility] left [facility] - shoulder shoulder [facility] Fluctuatin Fluctuatin Problem Active [facility] g blood g blood [facility]ics Hyperglyce Hyperglyce Problem Active [facility] pancho pancho [facility] - [facility] ent Clinics Polyarthra Polyarthra Diagnosis Active [facility] lgia lgia kes - [facility] Clinics Allergies, Adverse Reactions, Alerts This patient has no known allergies or adverse reactions. Social History Social Habit Start Date Stop Date Quantity Comments Source Sex Assigned At [facility] Alcohol intake 2017-01-04 2017-01-04 Current [facility] - 00:00:00 00:00:00 non-drinker of Medical Ce nter alcohol (finding) Smoking Status Start Date Stop Date Source Never smoker [facility] Medications Ordered Filled Start Stop Current Ordering Indication Dosage Frequency Signature Comments Components Source Medication Medication Date Date Medication? Clinician (SIG) Name Name Lidoderm Lidoderm 2018- 2019- No Miriam [address] [facility] 2-19 03-21 [facility] affected [facility] - 00:00: 00:00 area(s); Memoria 00 :00 remove l after 12 Outpati hours ent Clinics Lisinopril Lisinopril 2017- Yes Miriam [address] [facility] 5-[facility] - 00:[facility]: [facility] 00 l [facility] Atorvastati Atorvastati Yes Miriam [address] [facility] n Calcium n Calcium 5-21 [place] in evening [facility] - 00:00: [facility] 00 l [facility] dimenhyDRIN Yes 50mg Take [address] [facility] ATE 5-29 by mouth. [facility] - (DRAMAMINE) 14:17: Medica l 50 MG 45 Center tablet acetaminoph Yes headache 500mg Take [address] [facility] [facility] en 5-29 disorder mg by [facility] - (TYLENOL) 14:17: mouth Medical 500 MG 45 every 4 Center tablet (four) hours as needed for Pain. cetirizine Yes 10mg Take [address] (ZYRTEC) 10 5-29 by mouth. Shanita es - MG chewable 14:17: Medica l tablet 45 Center omega-3 Yes 1{tbl} QD Take [address] fatty 5-29 tablet by [facility] - acids-vitam 14:17: mouth Medic al in E 1,000 45 daily. Center mg Cap multivitami Yes 1{tbl} Take [address] n per 5-29 tablet by [facility] - tablet 14:17: mouth. Medical 45 Center melatonin 5 Yes 5mg QD Take [address] mg Tab 5-29 tablet (5 [facility] - tablet 00:00: mg total) Medica l 00 by mouth Center nightly. Aricept Aricept Yes Miriam as [facility] Fish Oil Fish Oil Yes Miriam [address] [facility]ics Namenda Namenda Yes Miriam As [facility] directed [facility] PreserVisio PreserVisio Yes Miriam not [facility] n AREDS 2 n AREDS 2 [facility]ender defined [facility] - [facility] Ciprofloxac Ciprofloxac Yes Miriam [address] in HCl in HCl Millender [facility] Procedures This patient has no known procedures. Encounters Start End Encounter Admission Attending Care Care Encounter Source Date/Time Date/Time Type Type Clinicians Facility Department ID 2018-09-28 2018-09-28 Outpatient Jeremias Galicia [id number] [address] 10:00:00 10:00:00 t [facility] Outpati ent Clinics 2018-04-20 2018-04-20 [facility] [id number] [address] 12:00:00 12:00:00 t [facility] Outpati ent Clinics 2018-04-08 2018-04-08 [facility] [id number] [address] 09:47:00 09:47:00 t Urgent [facility] Outpati ent Clinics 2018-03-30 2018-03-30 [facility] [id number] 11:10:00 11:10:00 t [facility] Outpati ent Clinics 2018-03-25 2018-03-25 [facility] [id number] [address] 00:07:00 00:07:00 t [facility] Outpati ent Clinics 2018-03-24 2018-03-24 [facility] [id number] 16:00:00 16:00:00 t [facility] Outpati ent Clinics 2017-12-28 2017-12-28 [facility] [id number] [address] 19:49:00 19:49:00 t [facility] Outpati ent Clinics 2017-12-28 2017-12-28 [facility] [id number] 10:00:00 10:00:00 t [facility] Outpati ent Clinics Results Test Description Test Time Test Comments Results Result Comments Source TROPONIN I 2017-01-04 09:28:00 Test Item Value Reference Range Interpretation Comme nts TROPONIN I (KB) (test code = 397) 0.02 ng/mL 0.00-0.03 [...] acidosis, acute neurological disease, and persistent tachyarrhythmia.HEMOGLOBIN [id number] 07:32:00 Test Item Value Reference Range Interpretation Comments HEMOGLOBIN A1C (BEAKER) (test code = 5.1 % 4.3-6.1 368) FastingVITAMIN [id number] 05:27:00 Test Item Value Reference Range Interpretation Comments VITAMIN B12 (BEAKER) (test code = 374 pg/mL [phone]) TSH/FREE T4 IF [id number] 05:27:00 Test Item Value Reference Range Interpretation Comments THYROID STIMULATING HORMONE 1.01 uIU/mL 0.35-4.94 (BEAKER) (test code = 772) CREATINE KINASE (CK), TOTAL AND [id number] 05:10:00 Test Item Value Reference Range Interpretation Comments CREATINE KINASE TOTAL (BEAKER) 80 U/L 29-200 (test code = 380) CREATINE KINASE-MB (BEAKER) (test 2.0 ng/mL 0.0-6.6 code = 750) CREATINE KINASE-MB INDEX (BEAKER) 2.5 % (test code = 395) Effective 06/27/2014: CK-MB Reference Range ChangeNew: 0.0-6.6 Previous: 0.0-4.9CK-MB Reference Range:<6.7 Normal6.7-10.0 Borderline>10.0 AbnormalFastingFastingTROPONIN [id number] 05:10:00 Test Item Value Reference Range Interpretation [...] acidosis, acute neurological disease, and persistent tachyarrhythmia.FastingLIPID [id number] 05:03:00 Test Item Value Reference Range Interpretation [...]
[2020-07-05 18:49] LABS: Basophils % 0.9 % (0-1.3); Hematocrit 35.1 % (36.0-45.0); Lymphocytes % 24.4 % (15.3-44.8); MPV 8.3 fL (7.6-11.3); RBC Red Blood Cell Count 3.47 M/uL (3.86-4.86)
[2020-07-05 18:55] LABS: Protime INR 0.9
[2020-07-05 19:01] LABS: Potassium 4.2 mmol/L (3.5-5.1)
--- NOTE | 2020-07-05 19:14 | RAD REPORT ---
EXAM DESCRIPTION: CT - Head C Spine Cap Rudy Moody - 07/05/2020 6:48 pm CLINICAL HISTORY: Head and neck injury with chest and abdominal pain status post fall. . Head and ne ck pain . TECHNIQUE: Computed axial tomography of the head and cervical spine was obtained Computed axial tomography of the chest, abdomen and pelvis was obtained. 100 cc Isovue-300 was given intravenously coronal and sagittal reconstruction was performed. All CT scans are performed using dose optimization technique as appropriate and may include automated exposure control or mA/KV adjustment according to patient size. COMPARISON: October 2019 FINDINGS: Moderate low-density areas within periventricular, deep and subcortical white matter likel y ischemic changes secondary to small vessel disease. An intracranial bleed is not seen. The ventricl es are normal in caliber. An extra-axial fluid collection is not noted. A cervical fracture is not seen. No dislocation is seen. Mild subluxation of several cervical vertebr al body is unchanged from October 2019. A mediastinal hematoma is not noted. A pleural effusion is not present. A lung contusion is not seen. 17 millimeter nodule right lobe thyroid gland The liver, spleen, pancreas, adrenals, kidneys and bladder do not demonstrate a traumatic injury IMPRESSION: 1. No acute intracranial abnormality is seen 2. A cervical fracture is not visualized. If the patient continues have symptoms to suggest intracran ial/spinal cord pathology then MRI would be recommended. 3. No traumatic injury involving the chest, abdomen or pelvis is seen.
--- NOTE | 2020-07-05 19:14 | RAD REPORT ---
EXAM DESCRIPTION: RAD - Pelvis - 07/05/2020 7:00 pm CLINICAL HISTORY: Pelvic pain status post injury FINDINGS: No fracture or dislocation is seen.
--- NOTE | 2020-07-05 19:16 | RAD REPORT ---
EXAM DESCRIPTION: RAD - Femur Left - 07/05/2020 7:02 pm CLINICAL HISTORY: Left leg pain FINDINGS: The bones are osteoporotic. No fracture is seen.
[2020-07-05] MEDS ORDERED: MORPHINE 2 MG/ML SYR ONE (19:17)
--- NOTE | 2020-07-05 19:25 | EDPHYS ---
Physician Documentation [facility] Name: Liliane Mejia Age: 84 yrs Sex: Female : 1935 Arrival Date: 07/05/2020 Time: 18:14 Bed 6 Private MD: ED Physician Jennifer Lunsford HPI: 07/05 18:36 This 84 yrs old Female presents to ER via EMS with complaints of Fall Injury. cp 18:36 Details of fall: The patient fell from an upright position, while walking. Onset: The cp symptoms/episode began/occurred just prior to arrival. Associated injuries: The patient sustained injury to the head, hematoma, left upper leg. 18:36 Fall was unwitnessed. cp Historical: - Allergies: 18:17 Codeine; sv - Home Meds: 18:24 Arthritis Pain Relief (acetam) 650 mg oral TbER 1 tabs four times a day [Active]; sv Artificial Tears Opht lunch and dinner [Active]; aspirin 81 mg Oral chew 1 tab once daily [Active]; atorvastatin 40 mg Oral tab 1 tab nightly [Active]; celecoxib 200 mg Oral cap 1 cap once daily [Active]; divalproex 500 mg oral Tb24 twice a day [Active]; donepezil 5 mg Oral tab 1 tab nightly [Active]; folic acid 1 mg Oral tab 1 tab once daily [Active]; lisinopril 10 mg Oral tab 1 tab once daily [Active]; loratadine 10 mg Oral tab 1 tab once daily [Active]; melatonin 5 mg Oral tab 1 tab nightly [Active]; memantine 5 mg Oral tab 2 times per day [Active]; Ocuvite with Lutein Oral twice a day [Active]; [place]-3 oral 1 gm daily oral [Active]; STOOL SOFTNER 100 mg BID [Active]; tylenol 324 mg 1 tabs Q4h prn pain [Active]; - PMHx: 18:17 Dementia; Hypertension; macular degeneration; scoliosis; shingles; sv - Immunization history:: Adult Immunizations up to date. - Social history:: Smoking status: Patient denies any tobacco usage or history of. - Immunization history: Last tetanus immunization: unknown. ROS: 18:40 MS/extremity: Positive for pain, of the left upper leg, Negative for decreased range of cp motion, deformity. 18:40 Neck: Positive for bony tenderness. cp 18:40 Back: Positive for pain with movement, of the thoracic area. 18:40 Neuro: Negative for altered mental status, loss of consciousness. 18:40 Constitutional: Negative for fever, poor PO intake. cp 18:40 Cardiovascular: Negative for chest pain. 18:40 Respiratory: Negative for cough, shortness of breath, wheezing. 18:40 Abdomen/GI: Negative for abdominal pain, nausea, vomiting, and diarrhea. 18:40 All other systems are negative. Exam: 18:45 Constitutional: The patient appears in no acute distress, alert, awake, cp non-diaphoretic, non-toxic, well developed, well nourished. 18:45 Head/face: Noted is contusion, that is superficial, of the left side of the back of cp head, hematoma, that is mild, of the left side of the back of head. 18:45 Eyes: Periorbital structures: appear normal, Pupils: equal, round, and reactive to light and accomodation, Extraocular movements: intact throughout, Conjunctiva: normal, no exudate, no injection, Sclera: no appreciated abnormality, Lids and lashes: appear normal, bilaterally. 18:45 ENT: External ear(s): are unremarkable, Nose: is normal, Posterior pharynx: Airway: no evidence of obstruction, patent. 18:45 Neck: C-spine: C-collar placed in ED, vertebral tenderness, that is mild, appreciated at C5 and C6, crepitus, is not appreciated. 18:45 Chest/axilla: Inspection: normal, Palpation: crepitus, is not appreciated, tenderness, is not appreciated. 18:45 Cardiovascular: Rate: normal, Rhythm: regular, Edema: is not appreciated, JVD: is not appreciated. 18:45 Respiratory: the patient does not display signs of respiratory distress, Respirations: normal, no use of accessory muscles, no retractions, labored breathing, is not present, Breath sounds: are clear throughout, no decreased breath sounds. 18:45 Abdomen/GI: Inspection: abdomen appears normal, Bowel sounds: active, all quadrants, Palpation: abdomen is soft and non-tender, in all quadrants. 18:45 Back: pain, that is mild, of the thoracic area. 18:45 Musculoskeletal/extremity: Extremities: grossly normal except: noted in the left hip and left knee: pain, tenderness. 18:45 Neuro: Orientation: to person, situation, Mentation: no acute changes, Motor: moves all fours, strength is normal. 19:19 ECG was reviewed by the Attending Physician. Vital Signs: 18:25 BP 158 / 78; Pulse 80; Resp 19 S; Temp 97.5(TE); Pulse Ox 100% on R/A; Weight 56.25 kg jd3 (R); Height 5 ft. 6 in. (167.64 cm) (R); Pain 10/10; 19:30 BP 142 / 77; Pulse 78; Resp 18; Temp 97.4; Pulse Ox 99% on R/A; wh 18:25 Body Mass Index 20.01 (56.25 kg, 167.64 cm) jd3 [place] Coma Score: 18:35 Eye Response: spontaneous(4). Verbal Response: oriented(5). Motor Response: obeys jl7 commands(6). Total: 15. 19:08 Eye Response: spontaneous(4). Verbal Response: oriented(5). Motor Response: obeys ea commands(6). Total: 15. Trauma Score (Adult): 18:35 Eye Response: spontaneous(1); Verbal Response: oriented(1); Motor Response: obeys jl7 commands(2); Systolic BP: > 89 mm Hg(4); Respiratory Rate: 10 to 29 per min(4); Viktoria Score: 15; Trauma Score: 12 MDM: 18:27 Patient medically screened. cp 19:00 Differential diagnosis: closed head injury, contusion, fracture, multiple trauma. 19:23 Data reviewed: vital signs, nurses notes, lab test result(s), EKG, radiologic studies, cp CT scan, plain films. 19:23 Test interpretation: by ED physician or midlevel provider: ECG. Counseling: I had a cp detailed discussion with the patient and/or guardian regarding: the historical points, exam findings, and any diagnostic results supporting the discharge/admit diagnosis, lab results, radiology results, to return to the emergency department if symptoms worsen or persist or if there are any questions or concerns that arise at home. Response to treatment: the patient's symptoms have mildly improved after treatment, and as a result, I will discharge patient. 07/05 18:22 Order name: Basic Metabolic Panel; Complete Time: 19:17 07/05 19:17 Interpretation: Normal except: NA 132; GFR 77. 07/05 18:22 Order name: CBC with Diff; Complete Time: 19:17 07/05 19:17 Interpretation: Normal except: RBC 3.47; HCT 35.1; MCV 101.0. 07/05 18:22 Order name: CT Traumagram (Head C Spine CAP W Con); Complete Time: 19:17 07/05 18:22 Order name: Type And Screen 07/05 18:22 Order name: PT-INR; Complete Time: 19:17 07/05 18:22 Order name: Ptt, Activated; Complete Time: 19:17 07/05 18:22 Order name: Labs collected and sent; Complete Time: 18:39 07/05 18:22 Order name: EKG; Complete Time: 18:23 07/05 18:22 Order name: EKG - Nurse/Tech; Complete Time: 19:10 07/05 18:23 Order name: XRAY Pelvis; Complete Time: 19:17 07/05 18:23 Order name: XRAY Femur LEFT; Complete Time: 19:17 cp EC:19 Rate is 78 beats/min. Rhythm is regular. [place] interval is normal. QRS interval is normal. cp QT interval is normal. T waves are Inverted in leads aVL, V2. Interpreted by me. Reviewed by me. Administered Medications: 19:10 Drug: morphine 2 mg {Note: RASS 0.} Route: IVP; Site: right wrist; 19:40 Follow up: Response: No adverse reaction; Pain is decreased; RASS: Alert and Calm (0) Disposition: 19:30 Chart complete. 07/06 11:08 Co-signature as Attending Physician, Jennifer Lunsford MD. ma2 Disposition: 07/05/20 19:24 Discharged to Home. Impression: Contusion of unspecified part of head, Fall on same level from slipping, tripping and stumbling, Pain in left hip, Pain in left knee, Dorsalgia. - Condition is Stable. - Discharge Instructions: Back Pain, Adult, Head Injury, Adult, Hematoma, Knee Pain, Hip Pain. - Medication Reconciliation Form, Thank You Letter, Antibiotic Education, Prescription Opioid Use form. - Follow up: Private Physician; When: 1 - 2 days; Reason: Worsening of condition. - Problem is new. - Symptoms have improved. Signatures: Dispatcher [employer] Freda Leon, RN RN Leonid Quispe PA PA cp Leal, Jahala, RN RN jl7 Carlos Mcclellan Jonathon RN RN jd3 Jennifer Lunsford MD MD ma2 MitulSeth clemens mw2 Corrections: (The following items were deleted from the chart) 07/05 19:41 19:24 07/05/2020 19:24 Discharged to Home. Impression: Contusion of unspecified part of mw2 head; Fall on same level from slipping, tripping and stumbling; Pain in left hip; Pain in left knee; Dorsalgia. Condition is Stable. Forms are Medication Reconciliation Form, Thank You Letter, Antibiotic Education, Prescription Opioid Use. Follow up: Private Physician; When: 1 - 2 days; Reason: Worsening of condition. Problem is new. Symptoms have improved. cp 07/06 18:20 07/05 18:40 All other systems are negative, cp cp
--- NOTE | 2020-07-05 19:25 | ER ---
Nurse's Notes [facility] Name: Liliane Mejia Age: 84 yrs Sex: Female : 1935 Arrival Date: 07/05/2020 Time: 18:14 Bed 6 Private MD: Diagnosis: Contusion of unspecified part of head;Fall on same level from slipping, tripping and stumbling;Pain in left hip;Pain in left knee;Dorsalgia Presentation: 07/05 18:22 Chief complaint: EMS states: "the pt fell and hit her head and left hip. pt denies LOC. jd3 the pt does report chronic back problems which has caused the pain to be worse today.". Coronavirus screen: At this time, the client does not indicate any symptoms associated with coronavirus-19. Ebola Screen: Patient negative for fever greater than or equal to 101.5 degrees Fahrenheit, and additional compatible Ebola Virus Disease symptoms. Initial Sepsis Screen: Does the patient meet any 2 criteria? No. Patient's initial sepsis screen is negative. Does the patient have a suspected source of infection? No. Patient's initial sepsis screen is negative. Risk Assessment: Do you want to hurt yourself or someone else? Patient reports no desire to harm self or others. Onset of symptoms was July 05, 2020. Care prior to arrival: Medication(s) given: Fentanyl 25 mg at 1810 IV initiated. 22 GA, in the right wrist. Transition of care: patient was received from another setting of care (long-term care facility), [facility]. 18:22 Method Of Arrival: EMS: [facility] jd3 18:22 Acuity: ROSA 3 jd3 18:32 Mechanism of Injury: Fall from standing position. Trauma event details: Injury occurred jl7 in the [facility], Injury occurred: at home. Injury occurred: July 05, 2020 Injury occurred at: 17:50. 19:10 Care prior to arrival: None. wh Trauma Activation: Physician: ED Physician; Name: ; Notified At: 18:22; Arrived At: Physician: General Surgeon; Name: ; Notified At: 18:22; Arrived At: Physician: Radiology; Name: ; Notified At: 18:22; Arrived At: Physician: Respiratory; Name: ; Notified At: 18:22; Arrived At: Physician: Lab; Name: ; Notified At: 18:22; Arrived At: Historical: - Allergies: 18:17 Codeine; sv - Home Meds: 18:24 Arthritis Pain Relief (acetam) 650 mg oral TbER 1 tabs four times a day [Active]; sv Artificial Tears Opht lunch and dinner [Active]; aspirin 81 mg Oral chew 1 tab once daily [Active]; atorvastatin 40 mg Oral tab 1 tab nightly [Active]; celecoxib 200 mg Oral cap 1 cap once daily [Active]; divalproex 500 mg oral Tb24 twice a day [Active]; donepezil 5 mg Oral tab 1 tab nightly [Active]; folic acid 1 mg Oral tab 1 tab once daily [Active]; lisinopril 10 mg Oral tab 1 tab once daily [Active]; loratadine 10 mg Oral tab 1 tab once daily [Active]; melatonin 5 mg Oral tab 1 tab nightly [Active]; memantine 5 mg Oral tab 2 times per day [Active]; Ocuvite with Lutein Oral twice a day [Active]; [place]-3 oral 1 gm daily oral [Active]; STOOL SOFTNER 100 mg BID [Active]; tylenol 324 mg 1 tabs Q4h prn pain [Active]; - PMHx: 18:17 Dementia; Hypertension; macular degeneration; scoliosis; shingles; sv - Immunization history:: Adult Immunizations up to date. - Social history:: Smoking status: Patient denies any tobacco usage or history of. - Immunization history: Last tetanus immunization: unknown. Screenin:35 Abuse screen: Denies threats or abuse. Denies injuries from another. Tuberculosis jl7 screening: No symptoms or risk factors identified. 18:38 Nutritional screening: No deficits noted. Fall Risk Fall in past 12 months (25 points). jl7 Secondary diagnosis (15 points) dementia, IV access (20 points). Ambulatory Aid- None/Bed Rest/Nurse Assist (0 pts). Gait- Weak (10 pts.). Mental Status- Overestimates/Forgets Limitations (15 pts.). Total Sheikh Fall Scale indicates High Risk Score (45 or more points). Fall prevention measures have been instituted. Side Rails Up X 2 Placed Close to Nursing Station Frequent Obs/Assessments Occuring Family Present and informed to notify staff if the need to leave the bedside As available patient and family educated on Fall Prevention Program and Strategies. Primary Survey: 18:35 NO uncontrolled hemorrhage observed. Breathing/Chest: Respiratory pattern: regular, jl7 Respiratory effort: spontaneous, unlabored, Breath sounds: clear, Chest inspection: symmetrical rise and fall of the chest. Circulation: Heart tones present. Skin color: pink, Skin temperature: warm. Disability Alert. Exposure/Environment: There is no evidence of uncontrolled external bleeding. A warming method has been applied: A warm blanket has been provided to the patient. 19:15 Reassessment Airway Airway Patent Breathing/Chest Respiratory pattern Regular wh Respiratory effort Spontaneous Unlabored Circulation Color [place]. Assessment: 18:35 General: Appears in no apparent distress. uncomfortable, Behavior is cooperative, jl7 appropriate for age, anxious. Pain: Complains of pain in scalp and left hip Pain currently is 10 out of 10 on a pain scale. Neuro: Level of Consciousness is awake, alert, obeys commands, Oriented to person, place, time, situation. Cardiovascular: Patient's skin is warm and dry. Respiratory: Airway is patent Respiratory effort is even, unlabored, Respiratory pattern is regular, symmetrical. GI: No signs and/or symptoms were reported involving the gastrointestinal system. : No signs and/or symptoms were reported regarding the genitourinary system. Derm: Skin is pink, warm \\T\\ dry. 19:10 General: Appears in no apparent distress. Behavior is calm, cooperative, appropriate wh for age. Pain: Complains of pain in scalp and left hip. Neuro: Level of Consciousness is awake, alert, obeys commands, Oriented to person, place, time, situation, Appropriate for age. Cardiovascular: Capillary refill < 3 seconds. Respiratory: Airway is patent Respiratory effort is even, unlabored, Respiratory pattern is regular, symmetrical. GI: Abdomen is flat, non-distended. : No signs and/or symptoms were reported regarding the genitourinary system. EENT: No signs and/or symptoms were reported regarding the EENT system. Derm: Skin is intact. Musculoskeletal: Circulation, motion, and sensation intact. Vital Signs: 18:25 BP 158 / 78; Pulse 80; Resp 19 S; Temp 97.5(TE); Pulse Ox 100% on R/A; Weight 56.25 kg jd3 (R); Height 5 ft. 6 in. (167.64 cm) (R); Pain 10/10; 19:30 BP 142 / 77; Pulse 78; Resp 18; Temp 97.4; Pulse Ox 99% on R/A; wh 18:25 Body Mass Index 20.01 (56.25 kg, 167.64 cm) jd3 Viktoria Coma Score: 18:35 Eye Response: spontaneous(4). Verbal Response: oriented(5). Motor Response: obeys jl7 commands(6). Total: 15. 19:08 Eye Response: spontaneous(4). Verbal Response: oriented(5). Motor Response: obeys ea commands(6). Total: 15. Trauma Score (Adult): 18:35 Eye Response: spontaneous(1); Verbal Response: oriented(1); Motor Response: obeys jl7 commands(2); Systolic BP: > 89 mm Hg(4); Respiratory Rate: 10 to 29 per min(4); Viktoria Score: 15; Trauma Score: 12 ED Course: 18:14 Patient arrived in ED. ss 18:14 Leonid Garcia PA is PHCP. cp 18:14 Jennifer Lunsford MD is Attending Physician. cp 18:24 Arm band placed on Patient placed in an exam room, on a stretcher. sv 18:24 Patient has correct armband on for positive identification. Bed in low position. Call sv light in reach. Adult w/ patient. Pulse ox on. NIBP on. 18:25 Triage completed. jd3 18:25 Patient maintains SpO2 saturation greater than 95% on room air. sv 18:25 Thermoregulation: warm blanket given to patient. sv 18:32 Lo Malhotra, ELTON is Primary Nurse. jl7 18:38 Initial lab(s) drawn, by me, sent to lab. Maintain EMS IV. Dressing intact. Good blood jl7 return noted. Site clean \\T\\ dry. Gauge \\T\\ site: 22 right wrist. 18:48 CT Traumagram (Head C Spine CAP W Con) In Process Unspecified. EDMS 18:54 Report given to Carlos RN and Bridgett RN. sv 19:00 XRAY Pelvis In Process Unspecified. EDMS 19:02 XRAY Femur LEFT In Process Unspecified. EDMS 19:40 No provider procedures requiring assistance completed. IV discontinued, intact, bleeding controlled, No redness/swelling at site. Administered Medications: 19:10 Drug: morphine 2 mg {Note: RASS 0.} Route: IVP; Site: right wrist; 19:40 Follow up: Response: No adverse reaction; Pain is decreased; RASS: Alert and Calm (0) Intake: 18:25 PO: 0ml; Total: 0ml. sv Output: 18:25 Urine: 0ml; Total: 0ml. sv Outcome: 19:24 Discharge ordered by MD. cp 19:40 Discharged to [facility] with Family 19:40 Condition: stable 19:40 Discharge instructions given to patient, family, Instructed on discharge instructions, follow up and referral plans. POC Demonstrated understanding of instructions, follow-up care, POC 19:40 Patient's length of stay was not longer than 2 hours. 19:41 Patient left the ED. mw2 Signatures: Dispatcher [employer] EDMS Freda Randolph RN Rosio Rojo RN RN Leonid Jefferson PA PA cp Leal, Jahala, RN RN jl7 Bridgett Perez RN Carlos Mckeon ea See Earl RN RN jSeth Scott mw2 Corrections: (The following items were deleted from the chart) 20:21 19:08 Pulse 78bpm; Resp 18bpm; Pulse Ox 99%; [facility]
[2020-07-05 21:43] VITALS: BP 158/78; TEMP 97.5
[2020-07-05 21:45] VITALS: O2SAT 99
== END 2020-07-05 19:41 | disposition home or self-care (01) ==
LOC: ER 18:12
DX: S00.83XA Contusion of other part of head, initial encounter (principal); M25.562 Pain in left knee; M54.9 Dorsalgia, unspecified; W01.0XXA Fall on same level from slipping, tripping and stumbling without subsequent striking against object, initial encounter; Y93.9 Activity, unspecified; Y92.9 Unspecified place or not applicable; I10 Essential (primary) hypertension; F03.90 Unspecified dementia, unspecified severity, without behavioral disturbance, psychotic disturbance, mood disturbance, and anxiety; Z79.82 Long term (current) use of aspirin; Z88.5 Allergy status to narcotic agent
CPT/HCPCS: 93005; 85025; 80048; 36415; 86900; 86850; 85610; 82565; 86901; 85730; 70450; 72125; 71260; 74177; 72170; 73552; 96374; 99284; Q9967; J2270

== ENCOUNTER 2021-01-08 15:29 | Inpatient (IN) | payer OTHER ==
--- OUTSIDE RECORDS SUMMARY | 2021-01-08 15:33 | XMS REPORT | Continuity of Care Document ---
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 [id number] 20:53:009.1[facility] [id number] 20:53:00 Test Item Value Reference Range Interpretation Comments B/C Ratio (test code = B/C Ratio) 24 1 6-25 [facility] [id number] 20:53:004.0[facility] PANEL 2020-11-17 20:53:00 Test Item Value Reference Range Interpretation Comments A/G Ratio (test code = A/G Ratio) 0.9 1 0.7-1.6 [facility] [id number] 20:53:0056[facility]annHEMATOLOGY 2020-11-17 20:53:0012.6[facility] YzfwgxyUFXDNRNGGT8871-15-49 20:53:003.61[facility] QqyqnyrPHNAZIHUAI5937-50-70 20:53:0012.7[facility] WnrynzzQXKGSKXJXS5898-93-21 20:53:0037.1[facility] TdgvgmuOMBEKWODOP4982-20-30 20:53:81025.9[facility] [place] [id number] 20:53:00 Test Item Value Reference Range Interpretation Comments MCH (test code = MCH) 35.2 pg 27.0-31.0 [facility] MqmlqluJDFVEZRCPU7941-15-21 20:53:0034.2[facility]annHEMATOLOGY 2020-11-17 20:53:0013.2[facility] XvuvdohFWAVHPBIMP0758-91-74 20:53:63817Lupirnjv PdfscgqOTBMGDEKGH7763-21-88 20:53:008.4[facility] IgmdfkeSLLFWZYPLF9005-93-51 20:53:0080.5[facility] FfnyverLTIYUXLZVA9885-05-79 20:53:0010.8[facility] VEUVDZYHFH3365-08-57 20:53:008.3[facility] EtpmykkUQJWDXLKEH5316-50-22 20:53:000.1 [facility] PqbxrlcWCVILXAJBQ4703-76-94 20:53:000.3[facility]annHEMATOLOGY 2020-11-17 20:53:0010.1[facility] KoebuwzZJQQJCORBS4534-17-40 20:53:001.4[facility] OwmycpuSJPFHYLTPW9221-54-71 20:53:001.0[facility] [id number] 21:45:00Yellow *NA*(09/30/20 3:45 PM)[facility] [id number] 21:45:00Marked *ABN*(09/30/20 3:45 PM)[facility] [id number] 21:45:00 Test Item Value Reference Range Interpretation Comments UA Spec Grav (test code = UA Spec 1.022 1 Grav) [facility] [id number] 21:45:00 Test Item Value Reference Range Interpretation Comments UA pH (test code = UA pH) 7.0 1 5.0-8.0 [facility] [id number] 21:45:00Negative *NA*(09/30/20 3:45 PM) [facility] [id number] 21:45:00Negative (09/30/20 3:45 PM) [facility] [id number] 21:45:004.0[facility] [id number] 21:45:00Negative (09/30/20 3:45 PM)[facility] [id number] 21:45:00Large *ABN*(09/30/20 3:45 PM)[facility] [id number] 21:45:00>182[facility] HermannTROPONIN [id number] 09:28:00 Test Item Value Reference Range Interpretation Comments [...] acidosis, acute neurological disease, and persistent tachyarrhythmia.HEMOGLOBIN [id number] 07:32:00 Test Item Value Reference Range Interpretation Comments HEMOGLOBIN A1C (BEAKER) (test code = 5.1 % 4.3-6.1 368) FastingTSH/FREE T4 IF [id number] 05:27:00 Test Item Value Reference Range Interpretation Comments THYROID STIMULATING HORMONE 1.01 uIU/mL 0.35-4.94 (BEAKER) (test code = 772) VITAMIN [id number] 05:27:00 Test Item Value Reference Range Interpretation Comments VITAMIN B12 (BEAKER) (test code = 374 pg/mL 213-816 774) CREATINE KINASE (CK), TOTAL AND [id number] 05:10:00 Test Item Value Reference Range Interpretation Comments CREATINE KINASE TOTAL (BEAKER) 80 U/L 29-200 (test code = 380) CREATINE KINASE-MB (BEAKER) (test 2.0 ng/mL 0.0-6.6 code = 750) CREATINE KINASE-MB INDEX (BEAKER) 2.5 % (test code = 395) Effective 06/27/2014: CK-MB Reference Range ChangeNew: 0.0-6.6 Previous: 0.0-4.9CK-MB Reference Range:<6.7 Normal6.7-10.0 Borderline>10.0 AbnormalFastingFastingTROPONIN [id number] 05:10:00 Test Item Value Reference Range Interpretation [...] acidosis, acute neurological disease, and persistent tachyarrhythmia.FastingLIPID [id number] 05:03:00 Test Item Value Reference Range Interpretation [...]
--- NOTE | 2021-01-08 18:40 | ER ---
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 Coronavirus screen: Client denies travel out of the [place] in the last 14 days. At this time, the client does not indicate any symptoms associated with coronavirus-19. Ebola Screen: No symptoms or risks identified at this time. Initial Sepsis Screen: Does the patient meet any 2 criteria? No. Patient's initial sepsis screen is negative. Does the patient have a suspected source of infection? No. Patient's initial sepsis screen is negative. Risk Assessment: Do you want to hurt yourself or someone else? Patient reports no desire to harm self or others. Onset of symptoms is unknown. Care prior to arrival: None. 16:36 Method Of Arrival: Wheelchair [facility] 16:36 Acuity: ROSA 3 jl7 Historical: - Allergies: 16:38 Codeine; jl7 - PMHx: 16:38 Dementia; Hypertension; macular degeneration; scoliosis; shingles; jl7 - Immunization history:: Adult Immunizations unknown. - Social history:: Smoking status: Patient denies any tobacco usage or history of. Screenin:20 Abuse screen: Denies threats or abuse. Nutritional screening: No deficits noted. ea Tuberculosis screening: No symptoms or risk factors identified. Fall Risk IV access (20 points). Assessment: 19:19 General: Appears uncomfortable, Behavior is appropriate for age. Pain: Complains of ea pain in back. Neuro: Level of Consciousness is awake, alert, obeys commands. Cardiovascular: Patient's skin is warm and dry. Respiratory: Airway is patent Respiratory effort is even, unlabored, Respiratory pattern is regular, symmetrical. Derm: Skin is pink, warm \T\ dry. 20:18 Reassessment: Patient and/or family updated on plan of care and expected duration. Pain ea level reassessed. Pt resting with eyes closed, respirations even and unlabored, chest expansions even and symmetrical. No s/s of pain or discomfort noted at this time. 20:19 Reassessment: Patient and/or family updated on plan of care and expected duration. Pain ea level reassessed. Patient is alert, oriented x 3, equal unlabored respirations, skin warm/dry/pink. Pt taken to CT. 22:55 Reassessment: Patient and/or family updated on plan of care and expected duration. Pain ea level reassessed. Pt alert oriented to self. Respirations even and unlabored, chest expansions even and symmetrical. Skin pink warm and dry. Pt admitted to second floor, pt left ED via stretcher per technician chemical cleaning. Vital Signs: 16:36 BP 124 / 102; Pulse 101; Resp 19; Temp 98.4; Pulse Ox 98% ; jl7 19:39 BP 160 / 82; Pulse 95; Resp 18; Pulse Ox 99% ; ea 20:29 BP 160 / 82; Pulse 109; Resp 17; Pulse Ox 90% on R/A; ea 22:59 BP 126 / 80; Pulse 97; Resp 18; Pulse Ox 98% ; ea ED Course: 15:32 Patient arrived in ED. ds1 16:38 Triage completed. jl7 16:38 Arm band placed on right wrist. Patient placed in waiting room, Patient notified of jl7 wait time. 17:55 Leonid Esqueda MD is Attending Physician. nain 18:15 Lore Nye, ELTON is Primary Nurse. ph 18:17 XRAY Chest (1 view) In Process Unspecified. EDMS 18:30 EKG done, by ED staff, reviewed by Leonid Esqueda MD. 3 18:37 Jennifer Fountain MD is Hospitalizing Provider. nain 19:03 Initial lab(s) drawn, by me, sent to lab. Inserted saline lock: 20 gauge in right dh3 antecubital area, using aseptic technique. Blood collected. 19:20 Patient has correct armband on for positive identification. Bed in low position. Call ea light in reach. Side rails up X2. 19:53 Head C Spine Cap W Con In Process Unspecified. EDMS 22:48 No provider procedures requiring assistance completed. Patient admitted, IV remains in ea place. Administered Medications: 18:55 Drug: fentaNYL (PF) 25 mcg Route: IVP; Site: right antecubital; ea 22:53 Follow up: Response: No adverse reaction ea 19:13 Drug: Zofran (Ondansetron) 4 mg Route: IVP; Site: right antecubital; ea 20:31 Follow up: Response: No adverse reaction ea 19:13 Drug: Rocephin (cefTRIAXone) 1 grams Route: IV; Rate: per protocol; Site: right ea antecubital; 20:31 Follow up: IV Status: Completed infusion ea 19:14 Drug: fentaNYL (PF) 25 mcg Route: IVP; Site: right antecubital; ea 22:52 Follow up: Response: No adverse reaction ea 19:15 Drug: NS 0.9% 500 ml Route: IV; Rate: bolus; Site: right antecubital; ea 22:52 Follow up: Response: No adverse reaction; IV Status: Completed infusion; IV Intake: ea 500ml 19:34 Drug: Ativan (LORazepam) 0.5 mg Route: IVP; Site: right antecubital; ea 20:31 Follow up: Response: No adverse reaction ea Intake: 22:52 IV: 500ml; Total: 500ml. ea Outcome: 18:40 Decision to Hospitalize by Provider. nain 22:48 Condition: stable ea 22:48 Instructed on the need for admit. 23:00 Admitted to Med/surg accompanied by tech, via stretcher, room 232, with chart, Report ea called to Receiving nurse on second floor 23:00 Patient left the ED. ea Signatures: Dispatcher [employer] EDMO Leonid Esqueda MD MD cha Sanford, Demi ds1 Lore Nye RN RN Lo Khan RN RN esme7 Madeline Joseph 3 Bridgett Perez RN RN ea
--- NOTE | 2021-01-08 18:40 | EDPHYS ---
Physician Documentation [facility] Name: Liliane Mejia Age: 85 yrs Sex: Female : 1935 Arrival Date: 01/08/2021 Time: 15:32 Bed 18 Private MD: ED Physician Leonid Esqueda HPI: 01/08 18:28 This 85 yrs old Female presents to ER via Wheelchair with complaints of Back nain Pain. 18:28 The patient presents with pain that is acute, with no known mechanism of injury, that nain is chronic, with no known mechanism of injury. The symptoms are located in the thoracic area, lumbar area, left low back, left mid back, right mid back and right low back. Onset: The symptoms/episode began/occurred 3 day(s) ago. Location: lumbar area, left low back, left mid back, right mid back and right low back. Associated signs and symptoms: The patient has no apparent associated signs or symptoms. Modifying factors: The patient symptoms are alleviated by nothing, remaining still, the patient symptoms are aggravated by any movement. Severity of symptoms: At their worst the symptoms were mild, moderate, in the emergency department the symptoms are unchanged. The patient has not experienced similar symptoms in the past. Historical: - Allergies: 16:38 Codeine; jl7 - PMHx: 16:38 Dementia; Hypertension; macular degeneration; scoliosis; shingles; jl7 - Immunization history:: Adult Immunizations unknown. - Social history:: Smoking status: Patient denies any tobacco usage or history of. ROS: 18:29 Constitutional: Negative for fever, chills, and weight loss, Eyes: Negative for injury, nain pain, redness, and discharge, ENT: Negative for injury, pain, and discharge, Neck: Negative for injury, pain, and swelling, Cardiovascular: Negative for chest pain, palpitations, and edema, Respiratory: Negative for shortness of breath, cough, wheezing, and pleuritic chest pain, Abdomen/GI: Negative for abdominal pain, nausea, vomiting, diarrhea, and constipation, : Negative for injury, bleeding, discharge, and swelling, MS/Extremity: Negative for injury and deformity, Skin: Negative for injury, rash, and discoloration. 18:29 Back: Positive for decreased range of motion, pain at rest, pain with movement. 18:29 Neuro: Positive for altered mental status, weakness, late dementia. Exam: 18:29 Constitutional: This is a well developed, well nourished patient who is awake, alert, nain and in no acute distress. Head/Face: Normocephalic, atraumatic. Eyes: Pupils equal round and reactive to light, extra-ocular motions intact. Lids and lashes normal. Conjunctiva and sclera are non-icteric and not injected. Cornea within normal limits. Periorbital areas with no swelling, redness, or edema. ENT: Nares patent. No nasal discharge, no septal abnormalities noted. Tympanic membranes are normal and external auditory canals are clear. Oropharynx with no redness, swelling, or masses, exudates, or evidence of obstruction, uvula midline. Mucous membranes moist. Neck: Trachea midline, no thyromegaly or masses palpated, and no cervical lymphadenopathy. Supple, full range of motion without nuchal rigidity, or vertebral point tenderness. No Meningismus. Chest/axilla: Normal chest wall appearance and motion. Nontender with no deformity. No lesions are appreciated. Cardiovascular: Regular rate and rhythm with a normal S1 and S2. No gallops, murmurs, or rubs. Normal PMI, no JVD. No pulse deficits. Respiratory: Lungs have equal breath sounds bilaterally, clear to auscultation and percussion. No rales, rhonchi or wheezes noted. No increased work of breathing, no retractions or nasal flaring. Abdomen/GI: Soft, non-tender, with normal bowel sounds. No distension or tympany. No guarding or rebound. No evidence of tenderness throughout. Back: No spinal tenderness. No costovertebral tenderness. Full range of motion. Female : Normal external genitalia. Skin: Warm, dry with normal turgor. Normal color with no rashes, no lesions, and no evidence of cellulitis. Psych: Awake, alert, with orientation to person, place and time. Behavior, mood, and affect are within normal limits. 18:29 Musculoskeletal/extremity: Extremities: all appear grossly normal, with no appreciated pain with palpation, ROM: full active range of motion, full passive range of motion, Circulation is intact in all extremities. Compartment Syndrome exam of affected extremity: is normal. DVT Exam: No signs of deep vein thrombosis. no pain, no swelling, no tenderness, negative Homans' sign noted on exam, no appreciated bluish discoloration, no erythema, no increased warmth. 18:29 Neuro: Orientation: to person, Not oriented to place, time, situation, Mentation: confused, Memory: immediate memory is impaired, remote memory is impaired, recent memory is impaired, Sensation: appropriate no acute changes, Gait: not tested. Deep tendon reflexes are 1 (trace) + in the right patellar and left patellar, seizure activity, is not displayed by the patient. 18:43 ECG was reviewed by the Attending Physician. [facility] Vital Signs: 16:36 BP 124 / 102; Pulse 101; Resp 19; Temp 98.4; Pulse Ox 98% ; jl7 19:39 BP 160 / 82; Pulse 95; Resp 18; Pulse Ox 99% ; ea 20:29 BP 160 / 82; Pulse 109; Resp 17; Pulse Ox 90% on R/A; ea 22:59 BP 126 / 80; Pulse 97; Resp 18; Pulse Ox 98% ; ea MDM: 17:55 Patient medically screened. [facility] 18:34 Differential diagnosis: Fatigue Fracture Hydronephrosis Osteoarthritis Osteomalacia nain Osteoporosis Pyelonephritis ruptured disc, Scoliosis sprain, Ureterolithiasis. Data reviewed: vital signs, nurses notes, lab test result(s), EKG, radiologic studies, CT scan, plain films. Data interpreted: group work program director: Pulse oximetry: on room air is 98 %. Test interpretation: by ED physician or midlevel provider: ECG, plain radiologic studies. Counseling: I had a detailed discussion with the patient and/or guardian regarding: the historical points, exam findings, and any diagnostic results supporting the discharge/admit diagnosis, the presence of at least one elevated blood pressure reading (>120/80) during this emergency department visit, lab results, the need for further work-up and treatment in the hospital. 01/08 17:59 Order name: Basic Metabolic Panel [facility] 01/08 17:59 Order name: CBC with Diff [facility] 01/08 17:59 Order name: LFT's; Complete Time: 19:38 [facility] 01/08 17:59 Order name: Magnesium; Complete Time: 19:38 [facility] 01/08 17:59 Order name: NT PRO-BNP; Complete Time: 19:38 [facility] 01/08 17:59 Order name: PT-INR; Complete Time: 19:26 [facility] 01/08 17:59 Order name: Troponin (emerg Dept Use Only); Complete Time: 19:38 [facility] 01/08 17:59 Order name: Lipase; Complete Time: 19:38 [facility] 01/08 17:59 Order name: Urine Culture [facility] 01/08 18:00 Order name: Basic Metabolic Panel; Complete Time: 19:38 [facility] 01/08 18:00 Order name: CBC with Automated Diff; Complete Time: 19:26 [facility] 01/08 19:29 Order name: Urine Dipstick-Ancillary; Complete Time: 19:38 [facility] 01/08 20:57 Order name: SARS-COV-2 RT PCR [facility] 01/08 17:59 Order name: XRAY Chest (1 view); Complete Time: 19:26 [facility] 01/08 17:59 Order name: EKG; Complete Time: 18:00 [facility] 01/08 17:59 Order name: Cardiac monitoring; Complete Time: 19:21 [facility] 01/08 17:59 Order name: EKG - Nurse/Tech; Complete Time: 19:07 [facility] 01/08 17:59 Order name: IV Saline Lock; Complete Time: 19:07 [facility] 01/08 17:59 Order name: Labs collected and sent; Complete Time: 19:07 [facility] 01/08 18:32 Order name: Head C Spine Cap W Con; Complete Time: 20:53 [facility] 01/08 17:59 Order name: O2 Per Protocol; Complete Time: 19:08 [facility] 01/08 17:59 Order name: O2 Sat Monitoring; Complete Time: 19:08 [facility] 01/08 17:59 Order name: Urine Dipstick-Ancillary (obtain specimen); Complete Time: 22:53 [facility] EC:43 Rate is 90 beats/min. Rhythm is regular. QRS [place] is Normal. [place] interval is normal. QRS nain interval is normal. QT interval is normal. No Q waves. T waves are Normal. No ST changes noted. Clinical impression: NSR w/ Non-specific ST/T Changes and No evidence of ischemia. Interpreted by me. Reviewed by me. Administered Medications: 18:55 Drug: fentaNYL (PF) 25 mcg Route: IVP; Site: right antecubital; ea 22:53 Follow up: Response: No adverse reaction ea 19:13 Drug: Zofran (Ondansetron) 4 mg Route: IVP; Site: right antecubital; ea 20:31 Follow up: Response: No adverse reaction ea 19:13 Drug: Rocephin (cefTRIAXone) 1 grams Route: IV; Rate: per protocol; Site: right ea antecubital; 20:31 Follow up: IV Status: Completed infusion ea 19:14 Drug: fentaNYL (PF) 25 mcg Route: IVP; Site: right antecubital; ea 22:52 Follow up: Response: No adverse reaction ea 19:15 Drug: NS 0.9% 500 ml Route: IV; Rate: bolus; Site: right antecubital; ea 22:52 Follow up: Response: No adverse reaction; IV Status: Completed infusion; IV Intake: ea 500ml 19:34 Drug: Ativan (LORazepam) 0.5 mg Route: IVP; Site: right antecubital; ea 20:31 Follow up: Response: No adverse reaction ea Disposition: 01/08/21 18:40 Hospitalization ordered by Jennifer Fountain for Inpatient Admission. Preliminary diagnosis are Scoliosis, unspecified, Low back pain, Dementia in other diseases classified elsewhere - end stage, Altered mental status, unspecified, Urinary tract infection, site not specified. - Bed requested for Telemetry/MedSurg (Inpatient). - Status is Inpatient Admission. ea - Condition is Stable. - Problem is new. - Symptoms have improved. Signatures: Dispatcher [employer] EDIA Leonid Esqueda MD MD cha Mickail, Joel, PA PA jmm Garcia, Cindy, RN RN Lo Orourke RN RN jl7 Antunez, Elena, RN RN ea Corrections: (The following items were deleted from the chart) 18:32 18:00 Chest Abdomen Pelvis W Con+CT.RAD.BRZ ordered. EDIA EDIA 18:33 18:28 Head C Spine MPR Wo Con+CT.RAD.BRZ ordered. EDIA EDIA 19:28 18:40 Hospitalization Ordered by Jennifer Fountain MD for Inpatient Admission. Preliminary [facility] diagnosis is Scoliosis, unspecified; Low back pain; Dementia in other diseases classified elsewhere - end stage; Altered mental status, unspecified. Bed requested for Telemetry/MedSurg (Inpatient). Status is Inpatient Admission. Condition is Stable. Problem is new. Symptoms have improved. [facility] 20:02 18:00 CORONAVIRUS+MR.LAB.BRZ ordered. EDMS EDMS 22:44 19:28 01/08/2021 18:40 Hospitalization Ordered by Jennifer Fountain MD for Inpatient cg Admission. Preliminary diagnosis is Scoliosis, unspecified; Low back pain; Dementia in other diseases classified elsewhere - end stage; Altered mental status, unspecified; Urinary tract infection, site not specified. Bed requested for Telemetry/MedSurg (Inpatient). Status is Inpatient Admission. Condition is Stable. Problem is new. Symptoms have improved. [facility] 23:00 22:44 01/08/2021 18:40 Hospitalization Ordered by Jennifer Fountain MD for Inpatient ea Admission. Preliminary diagnosis is Scoliosis, unspecified; Low back pain; Dementia in other diseases classified elsewhere - end stage; Altered mental status, unspecified; Urinary tract infection, site not specified. Bed requested for Telemetry/MedSurg (Inpatient). Status is Inpatient Admission. Condition is Stable. Problem is new. Symptoms have improved. cg
--- NOTE | 2021-01-08 19:05 | RAD REPORT ---
EXAM DESCRIPTION: RAD - Chest Single View - 01/08/2021 6:17 pm CLINICAL HISTORY: COUGH COMPARISON: Portable April 2020 TECHNIQUE: AP portable chest image was obtained 01/08/2021 6:17 pm . FINDINGS: No focal lung parenchymal process seen. Interstitial pattern is prominent but not clearly different. Heart and vasculature are normal. No measurable pleural effusion and no pneumothorax. No a cute bony abnormality seen. No acute aortic findings suspected. IMPRESSION: No acute cardiopulmonary process. Chronic interstitial lung pattern matches comparison.
[2021-01-08 19:19] LABS: Absolute Lymphocytes (CBC) 2.8 K/uL (0.7-4.9); Basophils % 0.9 % (0-1.3); Hematocrit 36.7 % (36.0-45.0); Lymphocytes % 28.8 % (15.3-44.8); MPV 8.5 fL (7.6-11.3); RBC Red Blood Cell Count 3.57 M/uL (3.86-4.86)
[2021-01-08] MEDS ORDERED: NA CHLORIDE 0.9% 500 ML ONE (19:19)
[2021-01-08] MEDS ORDERED: ONDANSETRON 4 MG/2 ML VIAL ONE (19:19)
[2021-01-08] MEDS ORDERED: FENTANYL CITR 100 MCG/2 ML ONE (19:19)
[2021-01-08] MEDS ORDERED: CEFTRIAXONE/SWI 1gm 1 GM/10 ML SYR ONE (19:28)
[2021-01-08 19:29] LABS: Urine Blood Trace-intact (Negative); Urine Glucose Negative (Negative); Urine Protein 2+ (Negative); Urine Specific Gravity 1.025 (1.005-1.030)
[2021-01-08 19:33] LABS: Albumin 3.6 g/dL (3.4-5.0); Bilirubin Direct 0.3 mg/dL (0-0.2); Bilirubin Total 0.9 mg/dL (0.2-1.0); Magnesium 2.3 mg/dL (1.8-2.4); Potassium 4.8 mmol/L (3.5-5.1); Protein, Total 7.3 g/dL (6.4-8.2); Troponin (Emerg Dept Use Only) 0.02 ng/mL (0.0-0.045)
[2021-01-08] MEDS ORDERED: LORazepam 2 MG/ML VIAL ONE (19:47)
--- NOTE | 2021-01-08 20:26 | RAD REPORT ---
EXAM DESCRIPTION: CT - Head C Spine Cap W Con - 01/08/2021 7:53 pm CLINICAL HISTORY: PAIN, fall, head, neck, chest and abdomen injury COMPARISON: CT imaging June 2020 TECHNIQUE: Axial [address] head images were obtained. Axial [address] cervical spine images were obtaine d with sagittal and coronal reconstruction images reviewed. During dynamic enhancement of 100mL non-i onic contrast, axial 5 mm images of the chest, abdomen and pelvis were obtained. Biphasic technique p erformed of the abdomen and pelvis. All CT scans are performed using dose optimization technique as appropriate and may include automated exposure control or mA/KV adjustment according to patient size. FINDINGS: No intracranial hemorrhage, mass or edema. No midline shift or abnormal fluid collection. Patient has very advanced atrophy and chronic ischemic change. Ventricles are in proportion to the am ount of volume loss. Mastoid air cells and paranasal sinuses are clear. No skull fracture. Arterial and physiologic calcifications are present. CT cervical spine imaging shows normal height. Slight anterior subluxation of C3 is present similar t o comparison. C5-6 and C6-7 disc space narrowing present. No paraspinal mass or hematoma seen. Centra l canal detail is inherently limited. Concerns for traumatic disc herniation or traumatic cord injury can be further addressed with MR imaging. A fracture or acute bone process is not identified. Patien t has very pronounced facet joint degenerative change. CT chest shows no pneumothorax, pulmonary contusion or pleural fluid collection. No mediastinal hemat sanchez and the aorta and pulmonary arteries are unremarkable. No chest will mass or abnormal axillary fi nding. No displaced rib fracture or other significant bony finding. Prominent thoracic spine degener ative changes are present scoliotic curvature. CT abdomen and pelvis show no injury to solid abdominal viscera. Gallbladder is distended but no ston es or acute finding seen. No biliary tree dilatation. No bowel injury or significant finding. No free air, free fluid or abnormal stranding. Urinary bladder is mostly contracted around a Zambrano catheter. Diverticulosis is moderate stool volume noted in the colon. Advanced degenerative changes are present in the lumbar spine without an acute process. Facet joint d egenerative changes severe. Patient has dense arterial tree calcifications. IMPRESSION: Very advanced atrophy and chronic ischemic change with no acute CT Head finding. Advanced cervical spine degenerative change without acute finding. No acute CT Chest finding. No acute CT Abdomen and Pelvis finding. Exam is not substantially different from prior imaging.
[2021-01-08] MEDS ORDERED: ONDANSETRON 4 MG/2 ML VIAL IV PRN (22:57)
[2021-01-08] MEDS ORDERED: ACETAMINOPHEN 500 MG TAB PO PRN (22:57)
[2021-01-09] MEDS: MORPHINE 2 MG/ML SYR IV PRN ×3 (00:02→17:20)
[2021-01-09 00:36] VITALS: BMI 18.1
[2021-01-09 04:41] LABS: Absolute Lymphocytes (CBC) 2.4 K/uL (0.7-4.9); Basophils % 0.8 % (0-1.3); Lymphocytes % 31.9 % (15.3-44.8); MPV 8.6 fL (7.6-11.3); RBC Red Blood Cell Count 3.19 M/uL (3.86-4.86)
--- NOTE | 2021-01-09 04:41 | P.HP ---
Certification for Inpatient Patient admitted to: Observation With expected LOS: <2 Midnights Patient will require the following post-hospital care: None Practitioner: I am a practitioner with admitting privileges, knowledge of patient current condition, hospital course, and medical plan of care. Services: Services provided to patient in accordance with Admission requirements found in Title 42 Section 412.3 of the Code of Federal Regulations <Mitch Peoples - Last Filed: 01/09/21 04:43> Patient History Date of Service: 01/09/21 Primary Care Provider: Channing Reason for admission: back pain History of Present Illness: Ms. Mejia is an 85 yo F with HTN, vascular dementia, HLD, scoliosis here today with onset of acute R lower back pain and back spasms beginning 2 weeks ago. Prior to this episode, patient was ambulatory but now is wheelchair bound. She has been taking tylenol with no relief. CT shows severe degenerative changes but no acute change. BNP 2992. Urine 2+ protein, 1+ketone, +nitrites, + leukocyte esterase. She has been taking Bactrim daily for 2 weeks. - Past Medical/Surgical History Diabetic: No -: Hypertension -: Orthostatic hypotension -: Vascular dementia -: History TIA -: Hyperlipidemia -: Hysterectomy -: Bladder surgery Psychosocial/ Personal History: Patient lives at [facility] assisted [facility] facility. - Family History Mother -: Stroke Father -: Liver disease - Social History Smoking Status: Never smoker Alcohol use: No CD- Drugs: No Caffeine use: No Place of Residence: [facility] <Mitch Peoples - Last Filed: 01/09/21 04:43> Date of Service: 01/09/21 <Jennifer Fountain - Last Filed: 01/13/21 13:02> Allergies codeine Allergy (Mild, Verified 01/09/21 01:35) Unknown Home Medications: Acetaminophen [Tylenol Arthritis] 650 mg PO QID 04/24/16 Aspirin [Aspirin EC 81 MG] 81 mg PO DAILY 04/24/16 Vit C/E/Zn/Coppr/Lutein/Zeaxan [Preservision Areds 2 Softgel] 1 each PO DAILY 04/24/16 lisinopriL [Prinivil*] 10 mg PO [id number] 04/24/16 Memantine HCl 1 tab PO DAILY 10/10/19 Atorvastatin Calcium [Lipitor] 40 mg PO BEDTIME #30 tab 10/11/19 Celecoxib 1 cap PO DAILY 01/09/21 Divalproex Sodium 1 cap PO BID 01/09/21 Docusate [Colace Cap*] 1 cap PO BID 01/09/21 Folic Acid 1 mg PO DAILY 01/09/21 LORazepam [Lorazepam] 1 tab PO Q12H PRN 01/09/21 Lidocaine 4% Patch [Lidoderm 5% Patch*] 1 patch TOP SEECOM 01/09/21 Melatonin 1 tab PO BEDTIME 01/09/21 Vits A,C,E/Lutein/Minerals [Ocuvite with Lutein Tablet] 1 tab PO BID 01/09/21 methocarbamoL [Methocarbamol] 1 tab PO Q12H 01/09/21 Review of Systems 10-point ROS is otherwise unremarkable <Mitch Peoples - Last Filed: 01/09/21 04:43> Physical Examination - Vital Signs Temperature: 97.5 F Blood Pressure: 111/59 Pulse: 80 Respirations: 16 Pulse Ox (%): 94 - Physical Exam General: Alert, Cooperative, Cachectic, Demented HEENT: Atraumatic, Normocephalic, PERRLA, Mucous membr. moist/pink, EOMI, Sclerae nonicteric Neck: Supple, 2+ carotid pulse no bruit, JVD not distended, No Thyromegaly, No LAD Respiratory: Clear to auscultation bilaterally, Normal air movement Cardiovascular: No edema, Normal pulses, Regular rate/rhythm, Normal S1 S2, No gallops, No rubs, No murmurs Capillary refill: <2 Seconds Gastrointestinal: Normal bowel sounds, Soft and benign, Non-distended, No ascites, No tenderness, No masses, No rebound, No guarding Musculoskeletal: No clubbing, No swelling, No contractures, No erythema, No warmth, Tenderness Integumentary: No rashes, No breakdown, No significant lesion, No tenderness/swelling, No erythema, No warmth, No cyanosis Neurological: Normal speech, Normal strength at 5/5 x4 extr, Normal tone, Sensation intact, Cranial nerves 3-12 intact, Dementia Lymphatics: No axilla or inguinal lymphadenopathy - Studies Laboratory Data (last 24 hrs) 01/08/21 19:03: PT 11.5, INR 1.00 01/08/21 19:03: WBC 9.50, Hgb 12.5, Hct 36.7, Plt Count 282 01/08/21 19:03: Sodium 138, Potassium 4.8, BUN 20 H, Creatinine 0.87, Glucose 96, Magnesium 2.3, Total Bilirubin 0.9, AST 15, ALT 13, Alkaline Phosphatase 76, Lipase 96 <Mitch Peoples S - Last Filed: 01/09/21 04:43> Assessment and Plan - Plan Assessment chronic back pain dementia UTI Plan pain management as needed, PT consulted will consult ortho neurology consulted continue depakote, ativan continue IV antibiotics for UTI Discharge Plan: Home Plan to discharge in: 24 Hours - Advance Directives Does patient have a Living Will: Yes Does patient have a Durable POA for Healthcare: Yes - Code Status/Comfort Care Code Status Assessed: Yes (full code) Critical Care: No Time Spent Managing Pts Care (In Minutes): 70 <Mitch Peoples S - Last Filed: 01/09/21 04:43> - Problems (Diagnosis) (1) UTI (urinary tract infection) Current Visit: Yes Status: Acute (2) Toxic encephalopathy Current Visit: Yes Status: Acute (3) Alzheimer's dementia with behavioral disturbance Current Visit: Yes Status: Acute (4) HTN (hypertension) Current Visit: Yes Status: Acute (5) TIA (transient ischemic attack) Current Visit: Yes Status: Acute <Jennifer Fountain - Last Filed: 01/13/21 13:02> Date of Service: 01/09/21 Agree with current plan of care at this time. Will speak with family when they arrive in the morning <Jennifer Fountain - Last Filed: 01/13/21 13:02>
[2021-01-09 04:59] LABS: ALT/SGPT 13 U/L (12-78); AST/SGOT 15 U/L (15-37); Albumin 3.1 g/dL (3.4-5.0); Alkaline Phosphatase 66 U/L (45-117); BUN Blood Urea Nitrogen 19 mg/dL (7-18); Bicarbonate 24 mmol/L (21-32); Bilirubin Total 0.5 mg/dL (0.2-1.0); Glucose Level 85 mg/dL (74-106); Magnesium 2.3 mg/dL (1.8-2.4); Phosphorus 4.3 mg/dL (2.5-4.9); Protein, Total 6.2 g/dL (6.4-8.2); Sodium Level 140 mmol/L (136-145)
[2021-01-09] MEDS ORDERED: PNEUMOCOCCAL VACCINE 0.5 ML IMVAC ONE (09:00)
[2021-01-09] MEDS: LIDOCAINE 4% PATCH TOP SCH (10:12)
[2021-01-09] MEDS: DIVALPROEX DR 500MG TAB PO SCH ×2 (10:13→21:18)
--- NOTE | 2021-01-09 11:56 | EKG ---
Test Date: 2021-01-08 Test Time: 18:18:26 Colorectal Surgeon: CARIN MEASUREMENT RESULTS: Intervals: Rate: 90 FL: 182 QRSD: 80 QT: 368 QTc: 450 Tresckow: P: 100 FL: 182 QRS: -63 T: 85 INTERPRETIVE STATEMENTS: Normal sinus rhythm Left axis deviation Anteroseptal infarct, age undetermined Abnormal ECG Compared to ECG 07/05/2020 19:11:25 Left-axis deviation now present Myocardial infarct finding still present Electronically Signed On 01-09-21 11:53:47 CDT by Ruddy Greco
[2021-01-09] MEDS ORDERED: HALOPERIDOL LACT 5 MG/ML INJ IV PRN (15:26)
[2021-01-09] MEDS ORDERED: dexAMETHasone 4 MG/ML VIAL IV ONE (16:00)
[2021-01-09] MEDS ORDERED: WATER FOR INJ,STERILE 10 ML IM PRN (17:34)
[2021-01-09] MEDS ORDERED: ZIPRASIDONE MESYLA 20 MG/VIAL IM ONE (17:36)
[2021-01-09] MEDS ORDERED: CEFTRIAXONE/SWI 1gm 1 GM/10 ML SYR IVP SCH (20:00)
[2021-01-09] MEDS ORDERED: CEFTRIAXONE 1 GM/NS 50 ML 1 GM/50 ML BAG IV SCH (21:00)
[2021-01-09] MEDS: NA CHLORIDE 0.9% 1,000 ML IV SCH (21:18)
[2021-01-10] MEDS: NA CHLORIDE 0.9% 1,000 ML IV SCH ×2 (08:20→16:44)
[2021-01-10] MEDS: LIDOCAINE 4% PATCH TOP SCH (08:51)
[2021-01-10] MEDS: DIVALPROEX DR 500MG TAB PO SCH ×2 (08:52→19:45)
[2021-01-10] MEDS ORDERED: WATER FOR INJ,STERILE 10 ML IM PRN (11:40)
[2021-01-10] MEDS ORDERED: ZIPRASIDONE MESYLA 20 MG/VIAL IM ONE (11:45)
[2021-01-10] MEDS: Meropenem 500 MG in NA CHLORIDE 0.9% 100 ML IV SCH (16:35)
[2021-01-10] MEDS ORDERED: Meropenem 500 MG VIAL IV SCH (17:00)
[2021-01-10] MEDS ORDERED: ZIPRASIDONE MESYLA 20 MG/VIAL IM PRN (17:16)
[2021-01-10] MEDS: ZIPRASIDONE 20 MG CAP PO SCH (19:45)
[2021-01-10] MEDS: MEMANTINE HCL 10 MG TABLET PO SCH (21:00)
[2021-01-10] MEDS ORDERED: RISPERIDONE 1 MG TABLET PO SCH (21:00)
--- NOTE | 2021-01-10 22:53 | CON ---
Reason: Dementia and back pain. History: An 85-year-old lady whom I have not seen in quite some time. She is in a structured facili ty and she has a mixed vascular Alzheimer's dementia, brought to the Emergency Department with acute back pain, inability to ambulate, and worsening confusion. CT scan of the brain to the pelvis showed advanced atrophy, cervical spondylosis, and advanced degenerative changes in the lumbar spine, not u nexpectedly. The patient is delirious and confused and is now requiring Geodon to keep her from harm ing herself or others. I do not think she would tolerate any type of MRI imaging given her confusion . Labs revealed urinary tract infection and she is receiving antibiotics. She is chronically on Dep akote for behavioral issues, presumptively SARS was negative. As I have seen the patient in the past , consultation was requested. Past Medical History: Dementia, hypertension, hyperlipidemia. Medications: Currently, Depakote, lidocaine patch, meropenem, Geodon. Home medications were those a nd also include lisinopril, Namenda, Celebrex, aspirin, Lipitor, lorazepam as needed, and Robaxin. Social History: The patient requires assistance with all activities of daily living. Family History: Noncontributory. Review of Systems: General: She is chronically ill. Eyes: Denies. Ears, Nose, Throat: Negative. Cardiovascular: Hypertension. Pulmonary: Negative. GI: Negative. : Negative. Musculoskeletal: Scoliosis. Acute back pain. Neurologic: As noted. Psychiatric: Behavioral problems. Endocrine: Negative. Physical Examination: Vital Signs: Temperature 97.5, pulse 81, respirations 18, blood pressure 166/81. General: She is an elderly lady, who is lying in bed, tremulous or at least with a very prominent tr emor and picking at her IVs, but is able to tell me her name. HEENT: Pupils are reactive. Ocular motion is full. Blinks to threat. Neck: Supple. Extremities: Strength is greater than 4+. Sensation intact. Reflexes symmetric. Toes are bilatera lly upgoing. Pertinent Laboratory Data: White count 7.6, hemoglobin 11.2, BUN 19, creatinine 0.62. COVID negativ e. Impression: 1.Acute back pain. 2.Dementia, mixed Alzheimer's/vascular. Plan: We will do a dedicated CT scan of the lumbar spine in the morning. Check a sedimentation rate . Given the significant discomfort, I do not think the patient will tolerate a MRI. Check a Depakot e level. Check an ammonia level. Restart Namenda 5 mg b.i.d. Agree with PT evaluation, although I think the patient's sensorium will need to improve in order to accomplish any type of improvement wit h regard to therapy. Thank you for the consult. We will continue to follow with you. RUTH Voice ID: [id number] Report ID: [id number]
[2021-01-11] MEDS: Meropenem 500 MG in NA CHLORIDE 0.9% 100 ML IV SCH ×3 (00:42→18:15)
[2021-01-11] MEDS: MEMANTINE HCL 10 MG TABLET PO SCH ×2 (08:09→21:41)
[2021-01-11] MEDS: ZIPRASIDONE 20 MG CAP PO SCH (08:09)
[2021-01-11] MEDS: LIDOCAINE 4% PATCH TOP SCH (08:09)
[2021-01-11] MEDS: DIVALPROEX DR 500MG TAB PO SCH ×2 (08:09→21:41)
[2021-01-11] MEDS: NA CHLORIDE 0.9% 1,000 ML IV SCH (08:13)
[2021-01-11] MEDS: MORPHINE 2 MG/ML SYR IV PRN (10:05)
--- NOTE | 2021-01-11 10:27 | RAD REPORT ---
EXAM DESCRIPTION: CT - Spine Lumbar Wo Con - 01/11/2021 9:35 am CLINICAL HISTORY: radiculopathy, scoliosis COMPARISON: None. TECHNIQUE: Thin section axial imaging of the lumbar spine was performed. Sagittal and coronal recon struction images were generated and reviewed. All CT scans are performed using dose optimization technique as appropriate and may include automated exposure control or mA/KV adjustment according to patient size. FINDINGS: The patient has a very pronounced right convex scoliosis with the apex at the inferior L2 level. This is approximately 40 degrees. No acute compression fracture seen. No lytic, sclerotic or e xpansile bony destructive process seen. There is approximately 10 mm of lateral subluxation to the ri ght of the L3 body relative to L4. The L1 body shows approximately 7 mm left lateral subluxation rela tive to L3. There is slight height loss in the left lateral aspect of the L2 body along the concavity of the scoliosis. L5-S1 disc height is normal. There is significant loss in height right lateral L4-5 disc level where there is also very large right lateral endplate spurring. Degenerative gas and disc space narrowing p resent in the L3-4 disc space. There is pronounced loss in disc height left lateral aspect of L2-3 wi th prominent left lateral endplate spurring. T11-12 through L1-2 disc levels show degenerative gas wi th significant loss in disc height. No paraspinal soft tissue mass identified. T11-12: No central spinal stenosis. No significant foraminal encroachment suspected. T12-L1 level: No central spinal stenosis. Mild left lateral foraminal stenosis suspected. L1-2 level: Left facet joint hypertrophy encroaches on the central canal but does not cause significa nt central spinal stenosis. Endplate spurring and facet hypertrophy cause left foraminal stenosis. Th ere is bulging disc material and bony hypertrophy causing a mild right foraminal stenosis. L2-3 level: No central spinal stenosis. No right foraminal stenosis. There is facet hypertrophy and f ar lateral endplate spurring changes causing a mild foraminal stenosis on the left. L3-4 level: Right lateral subluxation abnormalities and facet hypertrophy cause significant right for aminal stenosis. Central spinal stenosis is present with disc bulge and facet hypertrophy along with the scoliosis change. Left foraminal stenosis is probably mild. L4-5 level: Disc bulge and facet hypertrophy are present. Central spinal stenosis is present down to 6-7 mm. Disc bulge causes left foraminal stenosis. Severe facet hypertrophy and severe right lateral endplate hypertrophy cause a very pronounced right foraminal stenosis. L5-S1 level: Disc bulge is present. No central spinal stenosis. Prominent facet hypertrophy is presen t but no significant foraminal stenosis. Prominent dense calcifications of the aorta, iliac vasculature and renal vasculature. IMPRESSION: Severe degenerative and scoliotic changes are present in the lumbar spine. Findings resu lt in significant central spinal stenosis and foraminal stenosis at L4-5. Additional multilevel foraminal stenoses are present detailed in the body of the report. Full finding s are detailed in the body of the report. No acute compression fractures seen. No pathologic bone process.
[2021-01-11] MEDS ORDERED: WATER FOR INJ,STERILE 10 ML IM PRN (15:42)
[2021-01-11] MEDS ORDERED: ZIPRASIDONE MESYLA 20 MG/VIAL IM ONE (17:00)
--- NOTE | 2021-01-11 18:10 | RAD REPORT ---
EXAM DESCRIPTION: RAD - Chest Single View - 01/11/2021 6:04 pm CLINICAL HISTORY: Device placement PICC line placement . IMPRESSION: PICC line with its tip in the mid superior vena cava
[2021-01-11] MEDS ORDERED: ZIPRASIDONE 20 MG CAP PO SCH ×2 (21:00)
[2021-01-11] MEDS ORDERED: ZIPRASIDONE 40 MG CAP PO SCH (21:00)
--- NOTE | 2021-01-12 00:15 | PN ---
Reason: Dementia, back pain. Interval History: The patient is stable, improved. Still confused. Still has dementia, less restle ss, able to follow simple commands. Labs were fairly unremarkable. Sedimentation rate 12. Ammonia 10, Depakote 6. CT lumbar spine, severe spondylosis and scoliosis, multilevel stenosis worst at L4/5 . Fortunately, nothing on labs or imaging to suggest an abscess or diskitis. She has a PICC line in place because she has EBSL, E. coli urine infection. Physical Examination: Vital Signs: On exam, she is afebrile. Blood pressure is a little high right now 194/98, but it had not been that high for most of the day, generally 150/68, heart rate 108, temp 99.1, sats 97%. General: She is awake. She can tell me her name. She will follow simple commands with encouragemen t. HEENT: Ocular motion full. Jane full. Strength greater than 4+. Reflexes symmetric. Pertinent Laboratory Data: As alluded to in the history. Impression: 1.Dementia, Alzheimer/vascular mixed. 2.Lumbar spondylosis. Plan: The patient is stable currently. No medication changes suggested presently. Continue general supportive care. BLESSING/MODL Voice ID: [id number] Report ID: [id number]
[2021-01-12] MEDS: NA CHLORIDE 0.9% 1,000 ML IV SCH ×2 (01:15→13:40)
[2021-01-12] MEDS: Meropenem 500 MG in NA CHLORIDE 0.9% 100 ML IV SCH ×3 (01:16→16:06)
[2021-01-12 06:09] LABS: Absolute Lymphocytes (CBC) 1.2 K/uL (0.7-4.9); Basophils % 0.3 % (0-1.3); Hematocrit 35.8 % (36.0-45.0); Lymphocytes % 11.6 % (15.3-44.8); MPV 8.5 fL (7.6-11.3); RBC Red Blood Cell Count 3.47 M/uL (3.86-4.86)
[2021-01-12 06:25] LABS: BUN Blood Urea Nitrogen 12 mg/dL (7-18); Bicarbonate 28 mmol/L (21-32); Glucose Level 103 mg/dL (74-106); NT PRO-BNP 3660 pg/mL (<450); Phosphorus 2.5 mg/dL (2.5-4.9); Sodium Level 140 mmol/L (136-145)
[2021-01-12] MEDS: MORPHINE 2 MG/ML SYR IV PRN ×2 (08:51→16:05)
[2021-01-12] MEDS: LIDOCAINE 4% PATCH TOP SCH (08:51)
[2021-01-12] MEDS: MEMANTINE HCL 10 MG TABLET PO SCH ×2 (08:51→20:47)
[2021-01-12] MEDS: DIVALPROEX DR 500MG TAB PO SCH ×2 (08:52→20:47)
[2021-01-12] MEDS ORDERED: ZIPRASIDONE 20 MG CAP PO SCH (09:00)
[2021-01-12] MEDS ORDERED: NA CHLORIDE 0.9% 250 ML IV ONE (17:14)
[2021-01-12] MEDS ORDERED: ACETAMINOPHEN 500 MG TAB PO ONE (17:14)
[2021-01-12] MEDS ORDERED: HYDROCORTISONE SUC 100 MG INJ IV ONE (17:22)
[2021-01-12] MEDS ORDERED: ACETAMINOPHEN 650MG/RECT SUPP PR ONE (18:26)
[2021-01-12 19:10] LABS: BUN Blood Urea Nitrogen 9 mg/dL (7-18); Bicarbonate 25 mmol/L (21-32); Creatine Phosphokinase 61 U/L (26-192); Glucose Level 115 mg/dL (74-106); Potassium 3.3 mmol/L (3.5-5.1); Sodium Level 139 mmol/L (136-145)
[2021-01-12] MEDS: KCL 20 MEQ/100 mL IVPB 20 MEQ/100 ML BAG IV SCH (20:46)
[2021-01-12] MEDS ORDERED: RISPERIDONE 1 MG TABLET PO SCH (21:00)
[2021-01-13] MEDS: KCL 20 MEQ/100 mL IVPB 20 MEQ/100 ML BAG IV SCH (00:13)
[2021-01-13] MEDS: Meropenem 500 MG in NA CHLORIDE 0.9% 100 ML IV SCH ×3 (00:49→16:43)
[2021-01-13] MEDS: NA CHLORIDE 0.9% 1,000 ML IV SCH ×3 (03:00→16:20)
[2021-01-13 06:17] LABS: Absolute Lymphocytes (CBC) 1.4 K/uL (0.7-4.9); Basophils % 0.3 % (0-1.3); Hematocrit 33.5 % (36.0-45.0); Lymphocytes % 11.2 % (15.3-44.8); MPV 8.7 fL (7.6-11.3); RBC Red Blood Cell Count 3.31 M/uL (3.86-4.86)
[2021-01-13 06:29] LABS: ALT/SGPT 10 U/L (12-78); AST/SGOT 12 U/L (15-37); Albumin 2.3 g/dL (3.4-5.0); Alkaline Phosphatase 55 U/L (45-117); BUN Blood Urea Nitrogen 10 mg/dL (7-18); Bicarbonate 26 mmol/L (21-32); Bilirubin Total 0.6 mg/dL (0.2-1.0); Creatine Phosphokinase 54 U/L (26-192); Glucose Level 111 mg/dL (74-106); Protein, Total 5.9 g/dL (6.4-8.2); Sodium Level 141 mmol/L (136-145)
[2021-01-13 06:31] LABS: Protime INR 1.21
[2021-01-13] MEDS: LIDOCAINE 4% PATCH TOP SCH (09:05)
[2021-01-13] MEDS: DIVALPROEX DR 500MG TAB PO SCH ×3 (09:06→21:00)
[2021-01-13] MEDS: MEMANTINE HCL 10 MG TABLET PO SCH ×2 (09:06→20:45)
--- NOTE | 2021-01-13 12:49 | P.PN ---
Subjective Date of Service: 01/10/21 Spoke with daughter for quite a while. She is not able to keep her daughter at [facility] care unit because of her severe pain. She had imaging of her L-spine which did not reveal any significant abnormalities. Unsure as to the etiology. Will prescribe an anti-inflammatory. Also will give her an tipsychotic to help with her mentation. Patient's psychiatric condition waxes and wanes. She may be better suited to go to a [facility] facility. At this time, they are contemplating trying to get her back to the memory care unit. She does qualify for hospice. Spoke with patient's family about this as well. They will contemplate all of this going forward. Review of Systems is unable to be obtained Physical Examination - Vital Signs Temperature: 97.6 F Blood Pressure: 138/66 Pulse: 78 Respirations: 19 Pulse Ox (%): 96 - Physical Exam General: Alert, Mild distress, Confused Cardiovascular: Regular rate/rhythm, Normal S1 S2, Systolic murmur Gastrointestinal: Normal bowel sounds, Soft and benign, Non-distended, No tenderness Musculoskeletal: No clubbing, No swelling, No tenderness Neurological: Normal speech, Sensation intact, Cranial nerves 3-12 intact, Abnormal gait, Abnormal strength - Studies Medications List Reviewed: Yes Assessment & Plan - Problems (Diagnosis) (1) UTI (urinary tract infection) Current Visit: Yes Status: Acute (2) Toxic encephalopathy Current Visit: Yes Status: Acute (3) Alzheimer's dementia with behavioral disturbance Current Visit: Yes Status: Acute (4) HTN (hypertension) Current Visit: Yes Status: Acute (5) TIA (transient ischemic attack) Current Visit: Yes Status: Acute - Plan 1. Will resume dementia medications 2. Antipsychotics 3. Antibiotic therapy; await culture results 4. Pain control 5. Strict blood pressure control 6. Physical therapy evaluation 7. GI and DVT prophylaxis Discharge Plan: [facility] Plan to discharge in: Greater than 2 days - Advance Directives Does patient have a Living Will: Yes Does patient have a Durable POA for Healthcare: Yes - Code Status/Comfort Care Code Status Assessed: Yes Code Status: Full Code Critical Care: No Time Spent Managing PTS Care (In Minutes): 35
[2021-01-13] MEDS: MORPHINE 2 MG/ML SYR IV PRN (13:04)
--- NOTE | 2021-01-13 13:06 | P.PN ---
Date of Service: 01/11/21 Subjective Patient is clinically doing well with no new complaints. Symptoms are continuing to improve. Pain is better relief. She is interacting with her daughter. Her daughter states she is much better with the antipsychotics. Will start oral dosing. Review of Systems pleasantly confused today Physical Examination - Vital Signs reviewed - Physical Exam General: Alert, Mild distress, Confused Cardiovascular: Regular rate/rhythm, Normal S1 S2, Systolic murmur Gastrointestinal: Normal bowel sounds, Soft and benign, Non-distended, No tenderness Musculoskeletal: No clubbing, No swelling, No tenderness Neurological: Normal speech, Sensation intact, Cranial nerves 3-12 intact, Abnormal gait, Abnormal strength - Studies Medications List Reviewed: Yes Assessment & Plan - Problems (Diagnosis) (1) UTI (urinary tract infection) Current Visit: Yes Status: Acute (2) Toxic encephalopathy Current Visit: Yes Status: Acute (3) Alzheimer's dementia with behavioral disturbance Current Visit: Yes Status: Acute (4) HTN (hypertension) Current Visit: Yes Status: Acute (5) TIA (transient ischemic attack) Current Visit: Yes Status: Acute - Plan Plan: 1. Continue medications for how Alzheimer; if psychosis tends to be disturbance would advise transfer to a geriatric psychiatric facility 2. Antipsychotics 3. Cultures revealed ESBL; continue with Merrem & arrange for outpatient antibiotic therapy 4. Pain control 5. Strict blood pressure control 6. Physical therapy evaluation appreciated 7. GI and DVT prophylaxis Discharge Plan: Long Term Plan to discharge in: Greater than 2 days
--- NOTE | 2021-01-13 13:09 | P.PN ---
Date of Service: 01/12/21 Subjective Patient is currently doing well no new complaints. She is more lethargic and she had a low-grade fever. This could be related to the antipsychotics. I will go ahead and stop these and may use restart at a lower dose of Risperdal. I think she will benefit from [facility]; however, in light of her ESBL UTI will need to be treated prior to transfer. This will need to be done at a intermediate facility. Review of Systems pleasantly confused today Physical Examination - Vital Signs reviewed - Physical Exam General: Alert, Mild distress, Confused Cardiovascular: Regular rate/rhythm, Normal S1 S2, Systolic murmur Gastrointestinal: Normal bowel sounds, Soft and benign, Non-distended, No tenderness Musculoskeletal: No clubbing, No swelling, No tenderness Neurological: Normal speech, Sensation intact, Cranial nerves 3-12 intact, Abnormal gait, Abnormal strength - Studies Medications List Reviewed: Yes Assessment & Plan - Problems (Diagnosis) (1) UTI (urinary tract infection) Current Visit: Yes Status: Acute (2) Toxic encephalopathy Current Visit: Yes Status: Acute (3) Alzheimer's dementia with behavioral disturbance Current Visit: Yes Status: Acute (4) HTN (hypertension) Current Visit: Yes Status: Acute (5) TIA (transient ischemic attack) Current Visit: Yes Status: Acute - Plan Plan: 1. Was UTI is treated and patient is still having psychotic thoughts and behavior then may benefit from [facility] facility versus hospice care 2. Hold antipsychotic in light of fever and tachycardia; check CPK level 3. Cultures revealed ESBL; continue with Merrem & arrange for outpatient antibiotic therapy 4. Pain control 5. Strict blood pressure control 6. Physical therapy evaluation appreciated 7. GI and DVT prophylaxis Discharge Plan: [facility] Plan to discharge in: Greater than 2 days
--- NOTE | 2021-01-13 13:10 | P.PN ---
Date of Service: 01/13/21 Subjective Had a long conversation with family. Patient is a DNR. There was multiple complaints including patient with swelling of the right upper extremity and left lower extremity. Will get a venous Doppler. Patient waking up and appears to have be having some sundowning. She had been doing well throughout the day according to the daughter but around 4 o'clock she started becoming a little more agitated. She kept repeating the same thing over and over again and became more fidgety with her hands. Her daughter temperature redirect her. It appears which she does not really know how to say what is going on. She has ESBL E coli and we of arrange for outpatient IV antibiotic therapy and are awaiting acceptance back [facility]. Her memory care unit will not take her back and tell her infection is cleared and her neurologic status and strength is improved. If she does not improve then they may leave her at [place] under nursing care. Her prognosis is poor. 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 She will qualify for hospice care at this time. Will need to further discuss this with family if that is something they wonder proceed with in the near future. Review of Systems pleasantly confused today Physical Examination - Vital Signs reviewed - Physical Exam General: Alert, Mild distress, Confused Cardiovascular: Regular rate/rhythm, Normal S1 S2, Systolic murmur Gastrointestinal: Normal bowel sounds, Soft and benign, Non-distended, No tenderness Musculoskeletal: No clubbing, No swelling, No tenderness Neurological: Normal speech, Sensation intact, Cranial nerves 3-12 intact, Abnormal gait, Abnormal strength - Studies Medications List Reviewed: Yes Assessment & Plan - Problems (Diagnosis) (1) UTI (urinary tract infection) Current Visit: Yes Status: Acute (2) Toxic encephalopathy Current Visit: Yes Status: Acute (3) Alzheimer's dementia with behavioral disturbance Current Visit: Yes Status: Acute (4) HTN (hypertension) Current Visit: Yes Status: Acute (5) TIA (transient ischemic attack) Current Visit: Yes Status: Acute - Plan Plan: 1. Continue with Merrem therapy at the nursing facility; dementia waxes and wanes. She appears to have some good moments and also some bad moments. 2. Antipsychotics are on hold as patient became over-sedated with the antipsychotic and her daughter does not want them. Will resumed benzodiazepines 3. Physical therapy evaluation 4. Pain control as needed 5. Strict blood pressure control; resume BP medications 6. Patient prognosis long-term is poor 7. GI and DVT prophylaxis Discharge Plan: Group Home Plan to discharge in: Greater than 2 days
[2021-01-13] MEDS ORDERED: LORAZEPAM 0.5 MG TABLET PO PRN (17:46)
[2021-01-13] MEDS ORDERED: HYDROCORTISONE SUC 100 MG INJ IV ONE (17:48)
[2021-01-13] MEDS: methocarbamoL 500 MG TAB PO SCH (18:26)
[2021-01-13] MEDS: MELATONIN 5 MG TABLET PO SCH (20:45)
[2021-01-13] MEDS: ATORVASTATIN 40 MG TAB PO SCH (20:45)
[2021-01-13] MEDS: DOCUSATE NA 100 MG CAP PO SCH (21:00)
[2021-01-14] MEDS: Meropenem 500 MG in NA CHLORIDE 0.9% 100 ML IV SCH ×3 (00:02→17:00)
[2021-01-14] MEDS: NA CHLORIDE 0.9% 1,000 ML IV SCH ×2 (00:02→05:40)
[2021-01-14] MEDS: lisinopriL 10 MG TAB PO SCH (05:24)
[2021-01-14] MEDS: methocarbamoL 500 MG TAB PO SCH ×2 (05:25→18:00)
[2021-01-14 06:21] LABS: Absolute Lymphocytes (CBC) 1.3 K/uL (0.7-4.9); Basophils % 0.2 % (0-1.3); Hematocrit 26.8 % (36.0-45.0); Lymphocytes % 15.5 % (15.3-44.8); MPV 8.8 fL (7.6-11.3); RBC Red Blood Cell Count 2.62 M/uL (3.86-4.86)
[2021-01-14 06:38] LABS: BUN Blood Urea Nitrogen 12 mg/dL (7-18); Bicarbonate 24 mmol/L (21-32); Glucose Level 95 mg/dL (74-106); Magnesium 1.9 mg/dL (1.8-2.4); Phosphorus 1.8 mg/dL (2.5-4.9); Potassium 3.5 mmol/L (3.5-5.1); Sodium Level 142 mmol/L (136-145)
[2021-01-14] MEDS ORDERED: POTASSIUM PHOS IN 0.9 % NACL 15 MMOL/250 ML BAG IV ONE (08:00)
[2021-01-14] MEDS: MEMANTINE HCL 10 MG TABLET PO SCH ×3 (09:00→21:00)
[2021-01-14] MEDS: CELECOXIB 100 MG CAPSULE PO SCH (09:00)
[2021-01-14] MEDS: DIVALPROEX DR 500MG TAB PO SCH ×4 (09:00→21:00)
[2021-01-14] MEDS: LIDOCAINE 4% PATCH TOP SCH (09:45)
[2021-01-14] MEDS: ASPIRIN EC 81 MG TAB PO SCH (09:46)
[2021-01-14] MEDS: DOCUSATE NA 100 MG CAP PO SCH ×2 (09:47→21:00)
--- NOTE | 2021-01-14 09:52 | RAD REPORT ---
EXAM DESCRIPTION: USExtremity Venous Uni Ltd01/14/2021 9:09 am CLINICAL HISTORY: left leg swelling. COMPARISON: None. FINDINGS: Left common femoral, superficial femoral, popliteal and posterior tibial veins are compre ssible and demonstrate augmentation. Doppler demonstrates good flow. IMPRESSION: No evidence of deep venous thrombosis involving the left lower extremity.
--- NOTE | 2021-01-14 10:10 | RAD REPORT ---
EXAM DESCRIPTION: US - UPPER EXTREMITY VENOUS UNILATE - 01/14/2021 9:29 am CLINICAL HISTORY: Right upper extremity swelling COMPARISON: None. FINDINGS: The right internal jugular, subclavian, brachial, axillary, cephalic, basilic, radial and ulnar veins demonstrate phasic signal. The veins are generally compressible. Doppler demonstrates good flow IMPRESSION: No evidence of thrombus involving the right upper extremity
--- NOTE | 2021-01-14 10:37 | P.PN ---
Subjective Date of Service: 01/14/21 Primary Care Provider: Channing Chief Complaint: back pain Subjective: Improving, Doing well, Demented Physical Examination - Vital Signs Temperature: 97.9 F Blood Pressure: 136/67 Pulse: 103 Respirations: 18 Pulse Ox (%): 95 - Studies Medications List Reviewed: Yes Assessment & Plan Discharge Plan: [facility] (SNF) Plan to discharge in: 24 Hours Physician Review Additional Text: Physical exam General: Alert, Mild distress, Confused Cardiovascular: Regular rate/rhythm, Normal S1 S2, Systolic murmur Gastrointestinal: Normal bowel sounds, Soft and benign, Non-distended, No tenderness Musculoskeletal: No clubbing, mild swelling to the right hand. No deficits noted. Neurological: Patient with advanced dementia. Overall stable. Normal speech, normal strength. Impression: Toxic encephalopathy secondary to UTI, urine culture positive for E coli-ESBL Alzheimer's dementia with behavioral disturbance, advanced Hypertension History of TIA Chronic pain Plan: Toxic encephalopathy secondary to UTI, urine culture positive for E coli-ESBL: Patient remains on IV meropenem for one week. PICC line in place. Venous Dopplers negative to the extremities. Repeat urine culture. Urine and blood cultures reviewed. Social work working to transfer patient to skilled facility to continue IV antibiotic therapy. Daughter wants to continue long-term care at the same facility. Will discuss with social work. Anticipate approval to SNF likely tomorrow. Alzheimer's dementia with behavioral disturbance, advanced: Antipsychotics have been discontinued. Continue Depakote, Ativan and Namenda. Neurology who follows patient has seen and evaluated patient. Overall stable. Patient is do not resuscitate. Hypertension: Continue current medication-lisinopril. Overall stable. History of TIA: Continue with current medication- aspirin, Lipitor, hypertensive medication. History of urinary retention: Continue with Zambrano catheter to be changed every month. Chronic pain: Continue with NSAIDS as needed DVT prophylaxis: Lovenox Code status: Patient is DNR Advanced care planning-30 min: Case discussed with daughter. Patient to go to skilled facility to continue IV antibiotic therapy for total of 7 days. Daughter wishes for patient to go to same facility for long-term care. Time Spent Managing Pts Care (In Minutes): 55
[2021-01-14] MEDS: ENOXAPARIN 30 MG/0.3 ML SQ SCH (17:00)
[2021-01-14] MEDS: ATORVASTATIN 40 MG TAB PO SCH (21:00)
[2021-01-14] MEDS: MELATONIN 5 MG TABLET PO SCH (21:00)
[2021-01-15] MEDS: Meropenem 500 MG in NA CHLORIDE 0.9% 100 ML IV SCH ×3 (00:38→17:00)
[2021-01-15] MEDS: lisinopriL 10 MG TAB PO SCH (05:08)
[2021-01-15] MEDS: methocarbamoL 500 MG TAB PO SCH ×2 (05:08→17:20)
[2021-01-15 05:43] LABS: BUN Blood Urea Nitrogen 10 mg/dL (7-18); Bicarbonate 26 mmol/L (21-32); Glucose Level 92 mg/dL (74-106); Phosphorus 2.4 mg/dL (2.5-4.9); Potassium 3.6 mmol/L (3.5-5.1); Sodium Level 139 mmol/L (136-145)
[2021-01-15] MEDS ORDERED: POTASSIUM PHOS 20 MM in NA CHLORIDE 0.9% 500 ML IV ONE (09:00)
[2021-01-15] MEDS: CELECOXIB 100 MG CAPSULE PO SCH (09:00)
[2021-01-15] MEDS: MEMANTINE HCL 10 MG TABLET PO SCH ×3 (09:00→20:20)
[2021-01-15] MEDS: DIVALPROEX DR 500MG TAB PO SCH ×4 (09:00→20:21)
[2021-01-15] MEDS: ASPIRIN EC 81 MG TAB PO SCH (09:21)
[2021-01-15] MEDS: LIDOCAINE 4% PATCH TOP SCH (09:22)
[2021-01-15] MEDS: DOCUSATE NA 100 MG CAP PO SCH ×2 (09:22→20:20)
--- NOTE | 2021-01-15 12:59 | P.PN ---
Subjective Date of Service: 01/15/21 Primary Care Provider: Channing Chief Complaint: back pain Subjective: Demented Physical Examination - Vital Signs Temperature: 98.4 F Blood Pressure: 177/79 Pulse: 83 Respirations: 16 Pulse Ox (%): 95 - Studies Medications List Reviewed: Yes Assessment & Plan Discharge Plan: Other (SNF v [facility] Plan to discharge in: Greater than 2 days Physician Review Additional Text: Physical exam General: Alert, patient with advanced dementia. Patient stable. No significant agitation noted at this time. Cardiovascular: Regular rate/rhythm, Normal S1 S2, Systolic murmur Gastrointestinal: Normal bowel sounds, Soft and benign, Non-distended, No tenderness Musculoskeletal: No clubbing, mild swelling to the right hand. No deficits noted. Neurological: Patient with advanced dementia. Overall stable. Impression: Toxic encephalopathy secondary to UTI, urine culture positive for E coli-ESBL Alzheimer's dementia with behavioral disturbance, advanced Hypertension History of TIA Chronic pain Plan: Toxic encephalopathy secondary to UTI, urine culture positive for E coli-ESBL: Repeat urine culture negative so far. Patient currently on IV meropenem. Currently on day 4/7 of IV antibiotic therapy. Patient continue IV meropenem for at least 7 days. Spoke with daughter at length concerning patient's Alzheimer's dementia with behavioral disturbance. Patient remains on medication. Patient did not need a great deal of medication for agitation last night. Will have psychiatry evaluate patient to consider inpatient geriatric psych facility to further address her behavioral disturbance verses patient to be discharged to skilled facility to continue rehab and IV antibiotic therapy then pursue long-term care. Will discuss with social insurance administrator. Await recommendations by psychiatry. Alzheimer's dementia with behavioral disturbance, advanced: Patient did well overnight. Continue with Ativan as needed. Will provide Geodon with severe agitation. Continue Depakote, Ativan and Namenda. Await Psychiatry evaluation to determine if patient requires inpatient geriatric psych facility to further address her behavioral disturbance. Neurology who follows patient has seen and evaluated patient. Overall stable. Patient is do not resuscitate. Hypertension: Continue current medication-lisinopril. Overall stable. History of TIA: Continue with current medication- aspirin, Lipitor, hypertensive medication. History of urinary retention: Continue with Zambrano catheter to be changed every month. Chronic pain: Continue with NSAIDS as needed DVT prophylaxis: Lovenox Code status: Patient is DNR Advanced care planning-30 min: Await Psychiatry evaluation to determine if patient require inpatient geriatric psych facility to further address her behavioral disturbance or to consider discharge to skilled facility to continue IV antibiotic therapy. Family desires long-term care for the patient. Patient is DNR. Time Spent Managing Pts Care (In Minutes): 55
[2021-01-15] MEDS: ENOXAPARIN 30 MG/0.3 ML SQ SCH (17:21)
[2021-01-15] MEDS: OLANZapine 2.5 MG TAB PO SCH (20:20)
[2021-01-15] MEDS: DOXEPIN HCL 25 MG CAP PO SCH (20:20)
[2021-01-15] MEDS: MELATONIN 5 MG TABLET PO SCH (20:20)
[2021-01-15] MEDS: ATORVASTATIN 40 MG TAB PO SCH (20:21)
[2021-01-15] MEDS: ENSURE ENLIVE 237 ML CAN PO SCH (20:21)
[2021-01-16] MEDS: Meropenem 500 MG in NA CHLORIDE 0.9% 100 ML IV SCH ×3 (00:30→16:52)
[2021-01-16] MEDS: LORAZEPAM 0.5 MG TABLET PO PRN ×2 (00:50→13:27)
[2021-01-16] MEDS: lisinopriL 10 MG TAB PO SCH (05:27)
[2021-01-16] MEDS: methocarbamoL 500 MG TAB PO SCH ×2 (05:28→16:52)
[2021-01-16 06:13] LABS: BUN Blood Urea Nitrogen 7 mg/dL (7-18); Bicarbonate 28 mmol/L (21-32); Glucose Level 94 mg/dL (74-106); Phosphorus 2.7 mg/dL (2.5-4.9); Potassium 3.2 mmol/L (3.5-5.1); Sodium Level 140 mmol/L (136-145)
[2021-01-16] MEDS ORDERED: KCL 20 MEQ/100 mL IVPB 20 MEQ/100 ML BAG IV SCH (08:00)
[2021-01-16] MEDS ORDERED: POTASSIUM 25 MEQ EFFERV TAB PO ONE (09:00)
[2021-01-16] MEDS: DIVALPROEX DR 500MG TAB PO SCH ×3 (09:00→20:21)
[2021-01-16] MEDS: CELECOXIB 100 MG CAPSULE PO SCH (09:00)
[2021-01-16] MEDS: ENSURE ENLIVE 237 ML CAN PO SCH ×2 (09:00→20:23)
[2021-01-16] MEDS: DOCUSATE NA 100 MG CAP PO SCH ×2 (09:04→20:22)
[2021-01-16] MEDS: MEMANTINE HCL 10 MG TABLET PO SCH ×2 (09:04→20:22)
[2021-01-16] MEDS: ASPIRIN EC 81 MG TAB PO SCH (09:04)
[2021-01-16] MEDS: LIDOCAINE 4% PATCH TOP SCH (09:04)
[2021-01-16] MEDS: OLANZapine 2.5 MG TAB PO SCH ×2 (09:05→20:21)
--- NOTE | 2021-01-16 09:44 | P.PN ---
Subjective Date of Service: 01/16/21 Primary Care Provider: Channing Chief Complaint: back pain Subjective: Doing well (Sitter at bedside.), Demented Physical Examination - Vital Signs Temperature: 98.4 F Blood Pressure: 155/67 Pulse: 79 Respirations: 19 Pulse Ox (%): 95 - Studies Medications List Reviewed: Yes Assessment & Plan Discharge Plan: Psychiatry Plan to discharge in: 24 Hours Physician Review Additional Text: Physical exam General: Patient resting in bed. Patient with advanced dementia. Sitter at bedside. No significant agitation last night. Patient did require some medication for agitation. Better last night than the day prior. Cardiovascular: Regular rate/rhythm, Normal S1 S2, Systolic murmur Gastrointestinal: Normal bowel sounds, Soft and benign, Non-distended, No tenderness Musculoskeletal: No clubbing, mild swelling to the right hand. No deficits noted. Neurological: Patient with advanced dementia. Overall stable. Impression: Toxic encephalopathy secondary to UTI, urine culture positive for E coli-ESBL Alzheimer's dementia with behavioral disturbance, advanced Hypertension History of TIA Chronic pain Plan: Toxic encephalopathy secondary to UTI, urine culture positive for E coli-ESBL: Repeat urine culture negative. Patient remains on IV meropenem. Patient needs 1 more day of antibiotic therapy. Case discussed at length with psychiatry. Psychiatry recommends inpatient psych facility to address her advanced dementia and behavioral disturbance. Some psychosis noted. Zyprexa and doxepin added. Patient should be able to finish up antibiotic treatment tomorrow. We will pursue inpatient geriatric psych facility placement after that time. Will discuss with family and social work. Alzheimer's dementia with behavioral disturbance, advanced: Patient improved today. Psychiatry recommends inpatient geriatric psych placement for further evaluation and treatment. Zyprexa and doxepin added. Continue with Depakote. Will address recommendations with family for inpatient psych likely after completion of treatment of her UTI tomorrow. Patient with sitter. Sitter reports some improvement. Patient is do not resuscitate. Hypertension: Continue current medication-lisinopril. Overall stable. History of TIA: Continue with current medication- aspirin, Lipitor, hypertensive medication. History of urinary retention: Continue with Zambrano catheter to be changed every month. Chronic pain: Continue with NSAIDS as needed DVT prophylaxis: Lovenox Code status: Patient is DNR Advanced care planning-30 min: Psych recommends inpatient geriatric psych placement for further treatment and evaluation. Will recommend this after completion of treatment of her ESBL tomorrow. Time Spent Managing Pts Care (In Minutes): 55
[2021-01-16] MEDS: ENOXAPARIN 30 MG/0.3 ML SQ SCH (16:52)
[2021-01-16] MEDS: DOXEPIN HCL 25 MG CAP PO SCH (20:22)
[2021-01-16] MEDS: MELATONIN 5 MG TABLET PO SCH (20:22)
[2021-01-16] MEDS: ATORVASTATIN 40 MG TAB PO SCH (20:25)
[2021-01-17] MEDS: Meropenem 500 MG in NA CHLORIDE 0.9% 100 ML IV SCH ×3 (00:01→17:00)
[2021-01-17] MEDS: lisinopriL 10 MG TAB PO SCH (05:16)
[2021-01-17] MEDS: methocarbamoL 500 MG TAB PO SCH ×3 (05:17→20:37)
[2021-01-17 05:40] LABS: BUN Blood Urea Nitrogen 8 mg/dL (7-18); Bicarbonate 29 mmol/L (21-32); Glucose Level 93 mg/dL (74-106); Potassium 3.9 mmol/L (3.5-5.1); Sodium Level 138 mmol/L (136-145)
[2021-01-17] MEDS: CELECOXIB 100 MG CAPSULE PO SCH (09:00)
[2021-01-17] MEDS ORDERED: POTASSIUM 25 MEQ EFFERV TAB PO ONE (09:00)
[2021-01-17] MEDS: MEMANTINE HCL 10 MG TABLET PO SCH ×2 (09:00→20:37)
[2021-01-17] MEDS: ENSURE ENLIVE 237 ML CAN PO SCH ×2 (09:00→20:39)
[2021-01-17] MEDS: ASPIRIN EC 81 MG TAB PO SCH (11:52)
[2021-01-17] MEDS: LIDOCAINE 4% PATCH TOP SCH (11:52)
[2021-01-17] MEDS: DIVALPROEX DR 500MG TAB PO SCH ×2 (11:53→20:37)
[2021-01-17] MEDS: DOCUSATE NA 100 MG CAP PO SCH ×2 (11:53→20:38)
[2021-01-17] MEDS: OLANZapine 2.5 MG TAB PO SCH ×2 (11:53→20:38)
--- NOTE | 2021-01-17 13:46 | P.PN ---
Subjective Date of Service: 01/17/21 Primary Care Provider: hCanning Chief Complaint: back pain Subjective: Improving, Doing well, Demented Physical Examination - Vital Signs Temperature: 99.7 F Blood Pressure: 149/78 Pulse: 91 Respirations: 24 Pulse Ox (%): 94 - Studies Medications List Reviewed: Yes Assessment & Plan Discharge Plan: Psychiatry Plan to discharge in: 24 Hours Physician Review Additional Text: Physical exam General: Patient resting in bed. Patient with advanced dementia. Daughter at bedside. Daughter reports patient had a good night. Cardiovascular: Regular rate/rhythm, Normal S1 S2, Systolic murmur Gastrointestinal: Normal bowel sounds, Soft and benign, Non-distended, No tenderness Musculoskeletal: No clubbing, mild swelling to the right hand. No deficits noted. Neurological: Patient with advanced dementia. Overall stable. Impression: Toxic encephalopathy secondary to UTI, urine culture positive for E coli-ESBL Alzheimer's dementia with behavioral disturbance, advanced Hypertension History of TIA Chronic pain Plan: Toxic encephalopathy secondary to UTI, urine culture positive for E coli-ESBL: Repeat urine culture negative. Patient will complete IV meropenem tonight. Discontinue IV meropenem after last dose today. UTI prevention will be continued. Case discussed at length with psychiatry yesterday. Psychiatry recommends inpatient psych facility to address her advanced dementia and behavioral disturbance. Her behavior is better today with changes in her medication.. Zyprexa and doxepin added. We will pursue inpatient geriatric psych facility placement tomorrow. Case discussed with social work. Anticipate transfer to inpatient geriatric psych facility tomorrow. Alzheimer's dementia with behavioral disturbance, advanced: Patient improved today. Psychiatry recommends inpatient geriatric psych placement for further evaluation and treatment. Zyprexa and doxepin added. Continue with Depakote. She remains DNR. Daughter agrees with plan of care. Hypertension: Continue current medication-lisinopril. Overall stable. History of TIA: Continue with current medication- aspirin, Lipitor, hypertensive medication. History of urinary retention: Continue with Zambrano catheter to be changed every month. Chronic pain: Continue with NSAIDS as needed DVT prophylaxis: Lovenox Code status: Patient is DNR Advanced care planning-30 min: Pursue inpatient geriatric psych placement tomorrow. Time Spent Managing Pts Care (In Minutes): 55
--- NOTE | 2021-01-17 14:58 | CON ---
Date of Consultation: 01/15/2021 Service Type: Consult. Reason For Consult: To evaluate patient and recommend treatment for her agitation and deposition. History Of Present Illness: Ms. Mejia is an 85-year-old female with psychiatric history significant for Alzheimer dementia with behavior disturbances admitted via the ER on account of altered mental status on January 10, 2021 due to urinary tract infection. History was provided by the daughter. The patient was seen confused and unable to participate adequately in this interview. The patient is a resident of a memory care unit. She was found to have UTI and started on antibiotic(Bactrim), she was subsequently seen again at [facility] and was started on Steroid, however her condition got worse hence her presentation to the ER. Daughter states patient is currently not at her baseline cognitive, she also report fluctuation with her level of consciousness and describes patient's cognition as "One moment she is so confuse and at another moment cognition is so clear". She reports associated visual hallucinations and poor sleep. No depressive or Bipolar symptoms reported. No history of suicidal ideation or self injurious behavior. Daughter states since this episode patient is not able to perform her ADL's and IADLs Physical Examination: GENERAL: The patient is alert, oriented to person only, not in any obvious cardiopulmonary distress. Mental Statuss Examination. Patient fairly well nourished female with fair grooming. She is not able to fully participate with this examination. Observed picking at her bedsheets Vital Signs: Temperature 97.5, blood pressure 101/60, pulse is 80, respirations 16, Impression: An 85-year-old female with history of dementia with behavioral disturbances, currently admitted for altered mental status, due to urinary tract infection patient also found to have insomnia. Diagnoses: 1. Delirium. 2. Alzheimer dementia with behavior disturbances. 3. Insomnia. Recommendations: 1. Recommend Patient be admitted into a Geripsych/Medpsych for further management of patient's agitation 1. Recommend to continue Depakote 500 mg p.o. b.i.d. 2. Recommend Olanzapine 2.5 mg q. b.i.d. for mood stability 3. Recommend Doxepin 25 mg p.o. q.h.s. for sleep. 4. Recommend olanzapine 5 mg Q8hrly prn for severe agitation. 5. Discussed recommendations with treatment team Thank you for consulting Psychiatry. FALVIA/JESÚS Voice ID: [id number] Report ID: [id number] GILDARDO
[2021-01-17] MEDS: ENOXAPARIN 30 MG/0.3 ML SQ SCH (17:00)
[2021-01-17] MEDS: ATORVASTATIN 40 MG TAB PO SCH (20:37)
[2021-01-17] MEDS: MELATONIN 5 MG TABLET PO SCH (20:37)
[2021-01-17] MEDS: DOXEPIN HCL 25 MG CAP PO SCH (20:38)
[2021-01-18] MEDS: Meropenem 500 MG in NA CHLORIDE 0.9% 100 ML IV SCH ×2 (00:21→09:00)
[2021-01-18] MEDS: methocarbamoL 500 MG TAB PO SCH ×2 (06:00→17:19)
[2021-01-18] MEDS: lisinopriL 10 MG TAB PO SCH (06:00)
[2021-01-18 07:09] LABS: BUN Blood Urea Nitrogen 9 mg/dL (7-18); Bicarbonate 30 mmol/L (21-32); Glucose Level 98 mg/dL (74-106); Potassium 3.9 mmol/L (3.5-5.1); Sodium Level 137 mmol/L (136-145)
--- NOTE | 2021-01-18 07:25 | P.PN ---
Subjective Date of Service: 01/18/21 Primary Care Provider: Channing Chief Complaint: back pain Subjective: Improving, Doing well (Patient has done well with current medication. No significant agitation noted.), Demented Physical Examination - Vital Signs Temperature: 99.0 F Blood Pressure: 169/80 Pulse: 99 Respirations: 18 Pulse Ox (%): 95 - Studies Medications List Reviewed: Yes Assessment & Plan Discharge Plan: [facility] Plan to discharge in: 24 Hours Physician Review Additional Text: Physical exam Vital signs stable blood blood pressure is slightly elevated. General: Patient resting in bed. Nurses report patient doing well with recent changes in her medication. Cardiovascular: Regular rate/rhythm, Normal S1 S2, Systolic murmur Gastrointestinal: Normal bowel sounds, Soft and benign, Non-distended, No tenderness Musculoskeletal: No clubbing, mild swelling to the right hand. No deficits noted. Neurological: Patient with advanced dementia. Overall stable. Impression: Toxic encephalopathy secondary to UTI, urine culture positive for E coli-ESBL Alzheimer's dementia with behavioral disturbance, advanced Hypertension History of TIA Chronic pain Plan: Toxic encephalopathy secondary to UTI, urine culture positive for E coli-ESBL: Repeat urine culture negative. Patient has completed IV antibiotic treatment. Continue UTI prevention. Patient has done well since psychiatry added Zyprexa and doxepin. Initially inpatient psych was recommended due to her agitation. Since the patient has been doing well family desires patient to go back to detention setting instead of inpatient psych. Patient reevaluated today. I agree with plan for return back to detention. No need for inpatient psych at this time. Case discussed in detail with psychiatry who will reassess patient this morning to determine further. Await recommendations by inpatient psych. Alzheimer's dementia with behavioral disturbance, advanced: Patient has done well with psychiatry changes to medication including the addition of Zyprexa and doxepin. Patient also on Depakote. Await reassessment by inpatient psych to consider back to the detention instead of inpatient psych evaluation/treatment. Will discuss with psychiatry after their assessment today. Hypertension: Blood pressure slightly elevated. Will add metoprolol for better control. Continue lisinopril. Will monitor and adjust appropriately. History of TIA: Continue with current medication- aspirin, Lipitor, hypertensive medication. History of urinary retention: Continue with Zambrano catheter to be changed every month. Chronic pain: Continue with NSAIDS as needed DVT prophylaxis: Lovenox Code status: Patient is DNR Advanced care planning-30 min: From a medical standpoint will recommend back to the detention instead of inpatient psych. Await recommendations by inpatient psych. Time Spent Managing Pts Care (In Minutes): 55
[2021-01-18] MEDS: CELECOXIB 100 MG CAPSULE PO SCH (09:00)
[2021-01-18] MEDS: DOCUSATE NA 100 MG CAP PO SCH ×2 (09:00→21:13)
[2021-01-18] MEDS: ENSURE ENLIVE 237 ML CAN PO SCH ×2 (09:00→21:00)
[2021-01-18] MEDS: LIDOCAINE 4% PATCH TOP SCH (11:47)
[2021-01-18] MEDS: MEMANTINE HCL 10 MG TABLET PO SCH ×2 (11:48→21:13)
[2021-01-18] MEDS: ASPIRIN EC 81 MG TAB PO SCH (11:49)
[2021-01-18] MEDS: OLANZapine 2.5 MG TAB PO SCH ×2 (11:50→21:12)
[2021-01-18] MEDS: DIVALPROEX DR 500MG TAB PO SCH ×2 (11:53→21:12)
[2021-01-18] MEDS: METOPROLOL TAR 25 MG TAB PO SCH ×2 (11:53→17:08)
[2021-01-18] MEDS: ENOXAPARIN 30 MG/0.3 ML SQ SCH (17:19)
[2021-01-18] MEDS: MELATONIN 5 MG TABLET PO SCH (21:12)
[2021-01-18] MEDS: ATORVASTATIN 40 MG TAB PO SCH (21:12)
[2021-01-18] MEDS: DOXEPIN HCL 25 MG CAP PO SCH (21:13)
[2021-01-19] MEDS: METOPROLOL TAR 25 MG TAB PO SCH ×3 (05:14→16:10)
--- NOTE | 2021-01-19 05:58 | P.PN ---
Subjective Date of Service: 01/19/21 Primary Care Provider: Channing Chief Complaint: back pain Subjective: Doing well, Demented Physical Examination - Vital Signs Temperature: 98.2 F Blood Pressure: 104/54 Pulse: 76 Respirations: 18 Pulse Ox (%): 93 - Studies Medications List Reviewed: Yes Assessment & Plan Discharge Plan: Psychiatry (Geriatric inpatient psych) Plan to discharge in: 24 Hours Physician Review Additional Text: Physical exam Vital signs stable General: Patient resting in bed. Nurses report patient doing well with recent changes in her medication. Cardiovascular: Regular rate/rhythm, Normal S1 S2, Systolic murmur Gastrointestinal: Normal bowel sounds, Soft and benign, Non-distended, No tenderness Musculoskeletal: No clubbing, mild swelling to the right hand. No deficits noted. Neurological: Patient with advanced dementia. Overall stable. Impression: Toxic encephalopathy secondary to UTI, urine culture positive for E coli-ESBL Alzheimer's dementia with behavioral disturbance, advanced Hypertension History of TIA Chronic pain Plan: Toxic encephalopathy secondary to UTI, urine culture positive for E coli-ESBL: Repeat urine culture negative. Patient has completed IV antibiotic treatment. Continue UTI prevention. Spoke with psychiatry at length yesterday. Patient has done well with current treatment of Zyprexa, doxepin and Depakote. Inpatient geriatric psych transfer for further evaluation and treatment still recommended. Spoke with daughter at length yesterday concerning plan of care. She agrees with transfer to inpatient geriatric psych. Await approval. Alzheimer's dementia with behavioral disturbance, advanced: Patient has done well with psychiatry changes to medication including the addition of Zyprexa and doxepin. Patient also on Depakote. Spoke with psychiatry yesterday. Psychiatry still recommends transfer to inpatient [facility] to further evaluate and treat. Hypertension: Blood pressure improved with changes to medication. Will decrease metoprolol today. Parameters in place. Continue lisinopril. Continue to adjust appropriately. History of TIA: Continue with current medication- aspirin, Lipitor, hypertensive medication. History of urinary retention: Continue with Zambrano catheter to be changed every month. Chronic pain: Continue with NSAIDS as needed DVT prophylaxis: Lovenox Code status: Patient is DNR Advanced care planning-30 min: Waiting approval for inpatient [facility]. Time Spent Managing Pts Care (In Minutes): 55
[2021-01-19] MEDS: methocarbamoL 500 MG TAB PO SCH ×3 (06:00→16:06)
[2021-01-19] MEDS: lisinopriL 10 MG TAB PO SCH ×2 (06:00→10:36)
[2021-01-19] MEDS: OLANZapine 2.5 MG TAB PO SCH ×2 (09:00→16:09)
[2021-01-19] MEDS: CELECOXIB 100 MG CAPSULE PO SCH (09:00)
[2021-01-19] MEDS: LIDOCAINE 4% PATCH TOP SCH (10:30)
[2021-01-19] MEDS: DIVALPROEX DR 500MG TAB PO SCH ×2 (10:30→20:45)
[2021-01-19] MEDS: ASPIRIN EC 81 MG TAB PO SCH (10:30)
[2021-01-19] MEDS: MEMANTINE HCL 10 MG TABLET PO SCH ×2 (10:37→20:47)
[2021-01-19] MEDS: DOCUSATE NA 100 MG CAP PO SCH ×2 (10:37→20:47)
[2021-01-19] MEDS: ENSURE ENLIVE 237 ML CAN PO SCH ×2 (10:38→20:47)
[2021-01-19] MEDS: LORAZEPAM 0.5 MG TABLET PO PRN (14:33)
[2021-01-19] MEDS: ENOXAPARIN 30 MG/0.3 ML SQ SCH (16:14)
[2021-01-19] MEDS: MELATONIN 5 MG TABLET PO SCH (20:46)
[2021-01-19] MEDS: DOXEPIN HCL 25 MG CAP PO SCH (20:46)
[2021-01-19] MEDS: ATORVASTATIN 40 MG TAB PO SCH (20:46)
[2021-01-20] MEDS: lisinopriL 10 MG TAB PO SCH (05:45)
[2021-01-20] MEDS: METOPROLOL TAR 25 MG TAB PO SCH ×2 (05:45→17:10)
[2021-01-20] MEDS: methocarbamoL 500 MG TAB PO SCH ×2 (05:47→17:16)
--- NOTE | 2021-01-20 06:02 | P.PN ---
Subjective Date of Service: 01/20/21 Primary Care Provider: Channing Chief Complaint: back pain Subjective: Doing well, Demented Physical Examination - Vital Signs Temperature: 97.8 F Blood Pressure: 102/58 Pulse: 78 Respirations: 20 Pulse Ox (%): 94 - Studies Medications List Reviewed: Yes Assessment & Plan Discharge Plan: Psychiatry (Inpatient [facility]) Plan to discharge in: 24 Hours Physician Review Additional Text: Physical exam Vital signs stable General: Patient resting in bed. Nurses report patient doing well with recent changes in her medication. Cardiovascular: Regular rate/rhythm, Normal S1 S2, Systolic murmur Gastrointestinal: Normal bowel sounds, Soft and benign, Non-distended, No tenderness Musculoskeletal: No clubbing, mild swelling to the right hand. No deficits noted. Neurological: Patient with advanced dementia. Overall stable. Impression: Toxic encephalopathy secondary to UTI, urine culture positive for E coli-ESBL Alzheimer's dementia with behavioral disturbance, advanced Hypertension History of TIA Chronic pain Plan: Toxic encephalopathy secondary to UTI, urine culture positive for E coli-ESBL: Repeat urine culture negative. Patient has completed IV antibiotic treatment. Continue UTI prevention. Spoke with psychiatry at length on Thursday. Patient has done well with current treatment of Zyprexa, doxepin and Depakote. Inpatient geriatric psych transfer for further evaluation and treatment still recommended. Spoke with daughter at length on Thursday concerning plan of care. She agrees with transfer to inpatient geriatric psych. Currently awaiting approval for inpatient [facility]. This will likely occur tomorrow. I will tu rn the service over to the hospitalist team tomorrow. I will go plan of care with him. Alzheimer's dementia with behavioral disturbance, advanced: Patient has done well with psychiatry changes to medication including the addition of Zyprexa and doxepin. Patient also on Depakote. Spoke with psychiatry yesterday. Psychiatry still recommends transfer to inpatient [facility] to further evaluate and treat. Awaiting approval for inpatient [facility]. Hypertension: Blood pressure stable with current changes. Currently on metoprolol and lisinopril. Parameters in place. Continue to adjust appropriately. History of TIA: Continue with current medication- aspirin, Lipitor, hypertensive medication. History of urinary retention: Continue with Zambrano catheter to be changed every month. Chronic pain: Continue with NSAIDS as needed DVT prophylaxis: Lovenox Code status: Patient is DNR Advanced care planning-30 min: Waiting approval for inpatient [facility].
[2021-01-20] MEDS: ENSURE ENLIVE 237 ML CAN PO SCH ×2 (09:00→21:07)
[2021-01-20] MEDS: CELECOXIB 100 MG CAPSULE PO SCH (09:00)
[2021-01-20] MEDS: MEMANTINE HCL 10 MG TABLET PO SCH ×2 (09:00→21:05)
[2021-01-20] MEDS: DIVALPROEX DR 500MG TAB PO SCH ×2 (09:00→21:06)
[2021-01-20] MEDS: ASPIRIN EC 81 MG TAB PO SCH (09:00)
[2021-01-20] MEDS: OLANZapine 2.5 MG TAB PO SCH ×2 (09:00→21:04)
[2021-01-20] MEDS: LIDOCAINE 4% PATCH TOP SCH (09:00)
[2021-01-20] MEDS: DOCUSATE NA 100 MG CAP PO SCH ×2 (09:00→21:04)
[2021-01-20] MEDS: LORAZEPAM 0.5 MG TABLET PO PRN (15:20)
[2021-01-20] MEDS ORDERED: LORazepam 2 MG/ML VIAL IV PRN (15:29)
[2021-01-20] MEDS: ENOXAPARIN 30 MG/0.3 ML SQ SCH (17:00)
[2021-01-20] MEDS: ATORVASTATIN 40 MG TAB PO SCH (21:04)
[2021-01-20] MEDS: MELATONIN 5 MG TABLET PO SCH (21:05)
[2021-01-20] MEDS: DOXEPIN HCL 25 MG CAP PO SCH (21:05)
[2021-01-21] MEDS: lisinopriL 10 MG TAB PO SCH (05:22)
[2021-01-21] MEDS: methocarbamoL 500 MG TAB PO SCH ×2 (05:23→17:15)
[2021-01-21] MEDS: METOPROLOL TAR 25 MG TAB PO SCH ×2 (05:23→17:16)
[2021-01-21] MEDS: OLANZapine 2.5 MG TAB PO SCH ×2 (09:00→21:00)
[2021-01-21] MEDS: DOCUSATE NA 100 MG CAP PO SCH ×2 (09:00→21:00)
[2021-01-21 09:13] VITALS: O2SAT 97
[2021-01-21] MEDS: ENSURE ENLIVE 237 ML CAN PO SCH ×2 (15:00→21:00)
[2021-01-21] MEDS: CELECOXIB 100 MG CAPSULE PO SCH (17:00)
--- NOTE | 2021-01-21 17:00 | P.PN ---
Subjective Date of Service: 01/21/21 Patient has declined quite a bit over the last week. Clinical symptoms are gradually worsening. Review of Systems is unable to be obtained Physical Examination - Vital Signs Temperature: 98.8 F Blood Pressure: 119/63 Pulse: 91 Respirations: 18 Pulse Ox (%): 92 - Physical Exam General: Confused Respiratory: Clear to auscultation bilaterally, Normal air movement Cardiovascular: Regular rate/rhythm, Normal S1 S2 Gastrointestinal: Normal bowel sounds, Soft and benign, Non-distended Musculoskeletal: No clubbing, No swelling - Studies Medications List Reviewed: Yes Assessment & Plan - Problems (Diagnosis) (1) UTI (urinary tract infection) Current Visit: Yes Status: Acute (2) Toxic encephalopathy Current Visit: Yes Status: Acute (3) Alzheimer's dementia with behavioral disturbance Current Visit: Yes Status: Acute (4) HTN (hypertension) Current Visit: Yes Status: Acute (5) TIA (transient ischemic attack) Current Visit: Yes Status: Acute - Advance Directives Does patient have a Living Will: Yes Does patient have a Durable POA for Healthcare: Yes - Code Status/Comfort Care Code Status: Full Code
[2021-01-21] MEDS: LIDOCAINE 4% PATCH TOP SCH (17:13)
[2021-01-21] MEDS: ASPIRIN EC 81 MG TAB PO SCH (17:14)
[2021-01-21] MEDS: DIVALPROEX DR 500MG TAB PO SCH ×2 (17:15→21:00)
[2021-01-21] MEDS: MEMANTINE HCL 10 MG TABLET PO SCH ×2 (17:17→21:00)
[2021-01-21] MEDS: ENOXAPARIN 30 MG/0.3 ML SQ SCH (17:19)
[2021-01-21] MEDS: LORAZEPAM 0.5 MG TABLET PO PRN (17:22)
[2021-01-21] MEDS: DOXEPIN HCL 25 MG CAP PO SCH (21:00)
[2021-01-21] MEDS: ATORVASTATIN 40 MG TAB PO SCH (21:00)
[2021-01-21] MEDS: MELATONIN 5 MG TABLET PO SCH (21:00)
[2021-01-22] MEDS: METOPROLOL TAR 25 MG TAB PO SCH ×2 (05:53→14:05)
[2021-01-22] MEDS: methocarbamoL 500 MG TAB PO SCH ×2 (05:53→14:08)
[2021-01-22] MEDS: lisinopriL 10 MG TAB PO SCH ×3 (05:53→14:09)
[2021-01-22] MEDS: ENSURE ENLIVE 237 ML CAN PO SCH (09:00)
[2021-01-22] MEDS: CELECOXIB 100 MG CAPSULE PO SCH (09:00)
[2021-01-22 12:47] VITALS: BP 128/64; TEMP 98.3
[2021-01-22] MEDS: ASPIRIN EC 81 MG TAB PO SCH (14:05)
[2021-01-22] MEDS: MEMANTINE HCL 10 MG TABLET PO SCH (14:08)
[2021-01-22] MEDS: DIVALPROEX DR 500MG TAB PO SCH (14:09)
[2021-01-22] MEDS: LIDOCAINE 4% PATCH TOP SCH (14:10)
[2021-01-22] MEDS: LORAZEPAM 0.5 MG TABLET PO PRN (14:10)
[2021-01-22] MEDS: ENOXAPARIN 30 MG/0.3 ML SQ SCH (14:10)
[2021-01-22] MEDS: OLANZapine 2.5 MG TAB PO SCH (14:19)
[2021-01-22] MEDS ORDERED: FLUCONAZOLE 100 MG TAB PO ONE (15:30)
[2021-01-22] MEDS ORDERED: NYSTATIN PWDR 100000 UNIT/GM TOP SCH (21:00)
== END 2021-01-22 16:30 | disposition hospice, inpatient (51) | DRG 689 ==
LOC: ER 15:29 → 2ND 22:52 → OBSVTOIN 01-10 12:12
PROVIDERS: ADMIT Hospitalist; ATTEND Hospitalist
PROC: 02HV33Z Insertion of Infusion Device into Superior Vena Cava, Percutaneous Approach (ICD-10-PCS; principal; 2021-01-11)
DX: N39.0 Urinary tract infection, site not specified (principal); G92 Toxic encephalopathy; Z16.12 Extended spectrum beta lactamase (ESBL) resistance; F02.81 Dementia in other diseases classified elsewhere, unspecified severity, with behavioral disturbance; G45.9 Transient cerebral ischemic attack, unspecified; B96.20 Unspecified Escherichia coli [E. coli] as the cause of diseases classified elsewhere; G30.9 Alzheimer's disease, unspecified; M47.896 Other spondylosis, lumbar region; I10 Essential (primary) hypertension; G89.29 Other chronic pain; R33.9 Retention of urine, unspecified; Z66 Do not resuscitate; Z20.822 Contact with and (suspected) exposure to COVID-19
CPT/HCPCS: 36415; 36569; 70450; 71045; 71260; 72125; 72131; 74177; 80048; 80053; 80076; 80164; 81003; 82140; 82550; 83690; 83735; 83880; 84100; 84132; 84484; 85025; 85610; 85652; 85730; 86140; 87077; 87086; 87088; 87186; 93005; 93971; 94760; 96361; 96365; 96375; 97110; 97116; 97162; 97530; 99285; G0378; J0696; J1100; J1630; J1650; J1720; J2270; J2405; J3010; J3480; J3486; J7030; J7040; J7050; Q9967; U0003